=== PATIENT | male | born 1940 | race Caucasian/White ===

== ENCOUNTER → 2018-09-07 11:41 | Outpatient (CLI) | payer MEDICARE, SELFPAY ==
--- NOTE | 2018-09-07 11:53 | DI.RAD.S_ITS ---
PROCEDURE: XR ELBOW LT MIN 3V INDICATIONS: M77.11 TECHNIQUE: 3 views of the elbow were acquired. COMPARISON: None. FINDINGS: Bones: No fractures or dislocations. No suspicious bony lesions. Soft tissues: No elbow joint effusion. No suspicious soft tissue calcifications. IMPRESSION: No trauma found. Dictated by: Stephen Livingston M.D. on 09/07/2018 at 13:02 Approved by: Stephen Livingston M.D. on 09/07/2018 at 13:02
== END ==
PROVIDERS: Visit Provider Chiropractor
DX: M77.11 Lateral epicondylitis, right elbow (principal)
CPT/HCPCS: 73080

== ENCOUNTER 2018-11-29 20:23 | Observation (INO) | payer MEDICARE, SELFPAY ==
[2018-11-29] VITALS (10 sets, daily range): BP systolic 80–119; BP diastolic 52–78; PULSE 49–88; RESP 14–18; TEMP 36.9; O2SAT 97–100
[2018-11-29] MEDS: ONDANSETRON 4 MG/2 ML INJ IV (20:25)
--- NOTE | 2018-11-29 20:29 | DI.CT.S_ITS ---
PROCEDURE: CT ANGIO CHEST ABDOMEN PELVIS INDICATIONS: abdominal pain syncope hypotenstion TECHNIQUE: Precontrast 5 mm thick sections acquired from the lung apices to the iliac crests. After the administration of intravenous contrast, 2.5 mm thick sections again acquired from the lung apices to the iliac crests. Maximum intensity projection (MIP) oblique sagittal and coronal reformats were then acquired. For radiation dose reduction, the following was used: automated exposure control. COMPARISON: [facility], CR, XR CHEST 1V, 11/29/2018, 20:38. None. FINDINGS: Image quality: Excellent. AORTA: Scattered atheromatous calcifications are present within the aortic arch. No aneurysmal dilatation. The thoracic aorta is moderately tortuous. No intimal dissection. No intramural hematomas or thrombus. No thickening or periaortic fat stranding. CHEST: Lungs and pleura: No acute airspace opacities. No pleural effusions or pneumothorax. Central and peripheral airways are patent and normal in caliber. Mediastinum: Heart size is normal. No pericardial effusion. No mediastinal or hilar adenopathy by size criteria. Central pulmonary arteries are normal in size. Esophagus is normal in caliber. There is a large hiatal hernia within the left hemithorax which contains half of the debris-filled stomach. Bones and chest wall: No axillary adenopathy by size criteria. Thyroid gland is unremarkable. No suspicious bony lesions. No vertebral body compression fractures. ABDOMEN: Vasculature: Scattered atheromatous calcifications are present throughout the abdominal aorta. The SMA, ROBB, celiac axis, and renal arteries are patent. Solid organs: Liver is normal in size and enhancement. Gallbladder is unremarkable. Biliary system is non dilated. Pancreas enhances normally. Spleen is normal in size and enhancement. No adrenal nodules. Both kidneys are normal in size and enhancement, without hydronephrosis. Peritoneum and bowel: No free fluid or air. Bowel loops are normal in caliber and wall thickness. The appendix is thin walled and gas filled. Nodes and vessels: No retroperitoneal or mesenteric adenopathy by size criteria. Inferior vena cava is normal in morphology. Miscellaneous: No ventral hernias. PELVIS: Genitourinary: Bladder wall thickness is normal. Miscellaneous: No inguinal adenopathy. There is a moderate-sized fat containing left inguinal hernia.. No ventral hernias. Bones: No suspicious bony lesions. No vertebral body compression fractures. IMPRESSION: 1. No aneurysmal dilatation of the aorta, aortic dissection, or stenosis. 2. Large hiatal hernia within the left hemithorax. 3. No acute intra-abdominal findings. Normal appendix. Dictated by: Aranza Colvin M.D. on 11/29/2018 at 21:11 Approved by: Aranza Colvin M.D. on 11/29/2018 at 21:19
--- NOTE | 2018-11-29 20:30 | DI.RAD.S_ITS ---
PROCEDURE: XR CHEST 1V INDICATIONS: syncope TECHNIQUE: One view of the chest was acquired. COMPARISON: None. FINDINGS: Surgical changes and devices: None. Lungs and pleura: No pleural effusions or pneumothorax. Lungs are clear. Mediastinum: Mediastinal contours appear normal. Heart size is mildly enlarged. There is a large gas filled hiatal hernia. Bones and chest wall: No suspicious bony lesions. Overlying soft tissues appear unremarkable. IMPRESSION: Cardiomegaly and large hiatal hernia. Dictated by: Aranza Colvin M.D. on 11/29/2018 at 20:50 Approved by: Aranza Colvin M.D. on 11/29/2018 at 20:51
--- NOTE | 2018-11-29 20:31 | DI.CT.S_ITS ---
PROCEDURE: CT HEAD/BRAIN WO CON INDICATIONS: syncope TECHNIQUE: Noncontrast 4.5 mm thick angled axial sections acquired from the foramen magnum to the vertex, with coronal and sagittal reformats. For radiation dose reduction, the following was used: automated exposure control, adjustment of mA and/or kV according to patient size. COMPARISON: None. FINDINGS: Image quality: Excellent. CSF spaces: Basal cisterns are patent. No extra-axial fluid collections. The ventricles are symmetric in size and shape. Brain: No intracranial bleeds or masses. There is cerebral volume loss for age, with resultant ventricular and sulcal prominence. There are periventricular and deep white matter chronic small vessel ischemic changes. There is intracranial internal carotid artery atherosclerosis. Skull and face: Calvarium and visualized facial bones appear intact, without suspicious lesions. Sinuses: Visualized sinuses and mastoids are clear. IMPRESSION: 1. No acute intracranial findings. 2. Findings likely associated with chronic microvascular ischemic change. Dictated by: Aranza Colvin M.D. on 11/29/2018 at 21:27 Approved by: Aranza Colvin M.D. on 11/29/2018 at 21:29
[2018-11-29 20:41] LABS: Add Manual Diff / Slide Review NO; Basophils Absolute Auto 100 /uL (0-100); Basophils Percent Auto 0.8 % (0-2); Eosinophils Absolute Auto 100 /uL (0-450); Eosinophils Percent Auto 1.4 % (2-4); Hematocrit 38.8 % (41-53); Hemoglobin 13.2 g/dL (13.5-17.5); Lymphocytes Absolute Auto 2700 /uL (1100-4500); Mean Corpuscular HGB Conc 33.9 % (30-36); Mean Corpuscular Hemoglobin 31.9 PG (26-34); Monocytes Absolute Auto 600 /uL (0-900); Neutrophils Absolute Auto 3700 /uL (1500-7000); Neutrophils Percent Auto 50.8 % (50-75); Platelet Count 223 X10^3/uL (150-400); Red Blood Cell Count 4.13 X10^6/uL (4.5-5.9); Red Cell Distribution Width 13.9 % (11.6-14.8); White Blood Cell Count 7.2 X10^3/uL (4.5-11.0)
[2018-11-29 20:54] LABS: Alanine Aminotransferase 32 IU/L (21-72); Albumin 3.6 g/dL (3.5-5.0); Albumin Globulin Ratio 1.3 (1.0-2.8); Alkaline Phosphatase 35 U/L (38-126); Aspartate Aminotransferase 33 IU/L (17-59); Bilirubin Total 0.2 mg/dL (0.2-1.3); Blood Urea Nitrogen 17 mg/dL (9-20); Calcium 8.4 mg/dL (8.4-10.2); Carbon Dioxide 23 mmol/L (22-32); Chloride 105 mmol/L (98-107); Creatine Kinase 47 U/L (55-170); Estimated Glomerular Filt Rate > 60.0 mL/min (>60); Globulin 2.8 g/dL (1.7-4.1); Glucose 93 mg/dL (80-110); HEMOLYSIS < 15 (0-50); Lactate (Lactic Acid) 2.6 mmol/L (0.7-2.1); Potassium 3.4 mmol/L (3.4-5.1); Sodium 140 mmol/L (137-145); Total Protein 6.4 g/dL (6.3-8.2)
[2018-11-29 20:58] LABS: B Type Natriuretic Peptide < 100 (<100)
[2018-11-29] MEDS: SODIUM CHLORIDE 0.9% 1,000 ML 1000 ML IV (21:00)
[2018-11-29 21:07] LABS: Troponin I < 0.012 ng/mL (0.01-0.034)
[2018-11-29] MEDS: PANTOPRAZOLE 40 MG VIAL IV (21:32)
--- NOTE | 2018-11-29 22:47 | ED_ITS ---
HPI - Syncope General Chief Complaint: Syncope Stated Complaint: Syncope Time Seen by Provider: 11/29/18 20:29 Source: family and EMS History of Present Illness HPI narrative: Patient is a 78-year-old male who presents after syncopal event at the [facility]. They are celebrating his 's birthday he got up to use the restroom, when he was coming out of the restroom he fell to the ground. He does not remember falling he denies any heart palpitations or chest discomfort. His daughter found him. He was out for 1-2 minutes his. He says that he remembers feeling of severe abdominal discomfort and nausea. And passed out. His daughter found him he became more arousable. EMS found his heart rate to be in the 40s and a blood pressure with a systolic in the 50s. He was given IV fluids blood pressure has improved some all along with heart rate however patient is still quite pale and diaphoretic. Daughter states that he has passed out about 3 times over the last 8 years. The last was a year to ago and it involves severe pain in his knee. He has never had a work up for his syncope in the past. complaint: collapsed Onset (ago): minute(s) Duration of episode: 2 -: minutes(s) Description of event: incontinence Related Data Home Medications Medication Instructions Recorded Confirmed aspirin 81 mg PO DAILY 11/29/18 11/29/18 atorvastatin 80 mg PO DAILY 11/29/18 11/29/18 lisinopril 40 mg PO DAILY 11/29/18 11/29/18 Allergies Allergy/AdvReac Type Severity Reaction Status Date / Time No Known Drug Allergies Allergy Verified 11/29/18 21:13 Review of Systems Review of Systems ROS Unobtainable: All systems reviewed & are unremarkable except as noted in HPI and below Constitutional Denies chills, Denies fever(s), Denies lethargy and Denies weakness ENT Ears, Nose, Mouth, and Throat: Denies change in voice, Denies neck pain and Denies sore throat Cardiovascular Reports syncope Gastrointestinal Gastrointestinal: Reports abdominal pain and Reports nausea Genitourinary Denies hematuria, Denies flank pain, Denies urinary incontinence and Denies urinary urgency Musculoskeletal Denies neck pain Integumentary/Breasts Denies pruritus, Denies erythema, Denies rash and Denies wounds Neurologic Reports syncope and Denies weakness [facility] Medical History High cholesterol (Acute) Hypertension (Acute) Family History: Reviewed 11/30/18 by WALE Singh Social History household members: spouse, family and children Smoking Status: Never smoker Exam Initial Vital Signs Initial Vital Signs: Vital Signs Temperature 98.4 F 11/29/18 20:18 Pulse Rate 54 L 11/29/18 20:18 Respiratory Rate 18 11/29/18 20:18 Blood Pressure 80/59 L 11/29/18 20:18 Pulse Oximetry 100 11/29/18 20:18 Const General: acute distress (Pale diaphoretic) and ill appearing Nutritional Appearance: average body habitus Orientation: alert, awake and oriented x3 HENMT Head: normal to inspection and normocephalic Eyes General: appearance normal, both eyes and all related structures Neck Neck: normal visual inspection and full ROM Chest Chest: normal inspection of the chest and normal palpation of entire chest wall Resp Effort & Inspection: normal respiratory effort and able to speak in complete sentences Auscultation: clear to auscultation bilaterally, no rales, no rhonchi and no wheezes Cardio Rate: regular rate Rhythm: regular rhythm Heart Sounds: S1 normal and S2 normal GI Palpation: soft, No guarding, No pulsatile mass, No rigid and No tender Percussion: normal to percussion Auscultation: normal bowel sounds Skin General: No dry skin, pallor and cool/cold Lesions: no lesions Rashes: no rashes Neuro General: alert, awake, oriented x3 and CN's II-XI intact bilaterally Cranial Nerves: PERRL Cognition: normal cognition Speech: speech normal Motor: muscle tone normal throughout Extrem General: full ROM, no clubbing, cyanosis or edema, no pedal edema and no calf tenderness Scores NIH Stroke Scale Level of Conciousness: Alert, keenly responsive Ask month/age: Answers both questions correctly. Open/close eyes, close hand: Performs both tasks correctly Best gaze horizontal: Normal Visual dangelo: No visual loss Facial palsy: Normal symetrical movement Left arm drift: No drift for full 10 sec Right arm drift: No drift for full 10 sec Left leg drift: No drift for full 10 sec Right leg drift: No drift for full 10 sec Limb ataxia: Absent Sensory on face/arms/legs: Normal, no sensory loss Best language: No aphasia, normal Dysarthria: Normal Extinction or inattention: No abnormality Total NIH Stroke scale score: 0 Course Orders Ordered: ED Orders 11/29/18 20:29 CT angio chest abdomen pelvis Stat 11/29/18 20:30 XR chest 1V Stat B Type Natriuretic Peptide Stat Complete Blood Count AUTO DIFF Stat Comprehensive Metabolic Panel Stat Lactate (Lactic Acid) Stat Troponin & CK Cardiac Panel Stat EKG-12 Lead Stat 11/29/18 20:31 CT head/brain wo con Stat 11/29/18 22:02 EKG-12 Lead Stat 11/30/18 00:42 Lactate 4HR (Lactic Acid Rflx) Stat 11/30/18 02:33 Education, smoking cessation ONGOING 11/30/18 02:35 Urinalysis and Microscopic Stat 11/30/18 06:00 Basic Metabolic Panel Routine Magnesium Routine Acetaminophen (Tylenol) 650 mg PO Q6HR PRN PRN Reason: As Needed for Fever/Mild Pain Aspirin (Aspirin Chew) 81 mg PO DAILY [facility] Atorvastatin Calcium (Lipitor) 80 mg PO DAILY [facility] Heparin Sodium (Porcine) (Heparin) 5,000 unit SUBCUT BID [facility] Sodium Chloride (Normal Saline 0.9%) 1,000 mls @ 80 mls/hr IV CONT REHAN Last Admin: 11/30/18 02:53 Dose: 80 mls/hr Ondansetron HCl (Zofran) 4 mg IV Q8HR PRN PRN Reason: Nausea And Vomiting Discontinued Medications Sodium Chloride (Normal Saline 0.9%) 1,000 mls @ 1,000 mls/hr IV BOLUS ONE Stop: 11/29/18 21:28 Last Infusion: 11/29/18 23:28 Dose: 1,000 mls/hr Admin: 11/29/18 21:00 Dose: 1,000 mls/hr Ondansetron HCl (Zofran) 4 mg IV NOW ONE Stop: 11/29/18 20:26 Last Admin: 11/29/18 20:25 Dose: 4 mg Pantoprazole Sodium (Protonix) 40 mg IV NOW ONE Stop: 11/29/18 21:22 Last Admin: 11/29/18 21:32 Dose: 40 mg Vital Signs - 8 hr 11/29/18 20:18 11/29/18 20:25 11/29/18 20:30 Temperature 98.4 F Pulse Rate 54 L 54 L 58 L Pulse Rate [Orthostatic Lying] Pulse Rate [Orthostatic Sitting] Pulse Rate [Orthostatic Standing] Respiratory Rate 18 18 18 Blood Pressure 80/59 L Blood Pressure [Orthostatic Lying] Blood Pressure [Orthostatic Sitting] Blood Pressure [Orthostatic Standing] Blood Pressure [Right Arm] 89/59 L 93/60 Pulse Oximetry 100 100 100 11/29/18 20:35 11/29/18 20:40 11/29/18 20:55 Temperature Pulse Rate 61 52 L 49 L Pulse Rate [Orthostatic Lying] Pulse Rate [Orthostatic Sitting] Pulse Rate [Orthostatic Standing] Respiratory Rate 18 18 18 Blood Pressure Blood Pressure [Orthostatic Lying] Blood Pressure [Orthostatic Sitting] Blood Pressure [Orthostatic Standing] Blood Pressure [Right Arm] 96/61 92/52 L 93/62 Pulse Oximetry 11/29/18 21:00 11/29/18 21:25 11/29/18 22:30 Temperature Pulse Rate 63 63 85 Pulse Rate [Orthostatic Lying] Pulse Rate [Orthostatic Sitting] Pulse Rate [Orthostatic Standing] Respiratory Rate 18 14 18 Blood Pressure Blood Pressure [Orthostatic Lying] Blood Pressure [Orthostatic Sitting] Blood Pressure [Orthostatic Standing] Blood Pressure [Right Arm] 112/78 102/62 110/71 Pulse Oximetry 100 97 98 11/29/18 23:05 11/30/18 00:05 11/30/18 02:32 Temperature 97.9 F Pulse Rate 88 93 H Pulse Rate [Orthostatic Lying] Pulse Rate [Orthostatic Sitting] Pulse Rate [Orthostatic Standing] Respiratory Rate 14 16 Blood Pressure 120/74 Blood Pressure [Orthostatic Lying] Blood Pressure [Orthostatic Sitting] Blood Pressure [Orthostatic Standing] Blood Pressure [Right Arm] 119/77 Pulse Oximetry 98 97 11/30/18 03:08 11/30/18 03:45 Temperature 98.2 F Pulse Rate 97 H Pulse Rate [Orthostatic Lying] 104 H Pulse Rate [Orthostatic Sitting] 103 H Pulse Rate [Orthostatic Standing] 110 H Respiratory Rate 16 Blood Pressure 115/72 Blood Pressure [Orthostatic Lying] 132/88 Blood Pressure [Orthostatic Sitting] 141/76 H Blood Pressure [Orthostatic Standing] 153/94 H Blood Pressure [Right Arm] Pulse Oximetry 94 MDM - Syncope Lab Data Attestation: I reviewed the patient's lab results. Result diagrams: 11/29/18 20:30 11/29/18 20:30 Lab Results 11/29/18 11/29/18 11/29/18 Range/Units 20:30 20:30 20:30 WBC 7.2 (4.5-11.0) X10^3/uL RBC 4.13 L (4.5-5.9) X10^6/uL Hgb 13.2 L (13.5-17.5) g/dL Hct 38.8 L (41-53) % MCV 94.0 (80-100) fL MCH 31.9 (26-34) PG MCHC 33.9 (30-36) % RDW 13.9 (11.6-14.8) % Plt Count 223 (150-400) X10^3/uL Neut % (Auto) 50.8 (50-75) % Lymph % (Auto) 38.0 (25-40) % Prentiss % (Auto) 9.0 (3-14) % Eos % (Auto) 1.4 L (2-4) % Baso % (Auto) 0.8 (0-2) % Neut # (Auto) 3700 (8103-7132) /uL Lymph # (Auto) 2700 (2132-7674) /uL Prentiss # (Auto) 600 (0-900) /uL Eos # (Auto) 100 (0-450) /uL Baso # (Auto) 100 (0-100) /uL Sodium (137-145) mmol/L Potassium (3.4-5.1) mmol/L Chloride (98-107) mmol/L Carbon Dioxide (22-32) mmol/L BUN (9-20) mg/dL Creatinine (0.66-1.25) mg/dL Estimated GFR (>60) mL/min BUN/Creatinine Ratio (6-22) Glucose (80-110) mg/dL Lactate 2.6 H (0.7-2.1) mmol/L Calcium (8.4-10.2) mg/dL Total Bilirubin (0.2-1.3) mg/dL AST (17-59) IU/L ALT (21-72) IU/L Alkaline Phosphatase (38-126) U/L Total Creatine Kinase (55-170) U/L CK-MB (CK-2) CK-MB (CK-2) Rel Index Troponin I (0.01-0.034) ng/mL B-Natriuretic Peptide < 100 (<100) Total Protein (6.3-8.2) g/dL Albumin (3.5-5.0) g/dL Globulin (1.7-4.1) g/dL Albumin/Globulin Ratio (1.0-2.8) Urine Color Urine Appearance Urine pH (4.5-8.0) Ur Specific [place] (1.000-1.035) Urine Protein (Negative) Urine Glucose (UA) (Negative) g/dL Urine Ketones (NEGATIVE) Urine Occult Blood (Negative) Urine Nitrate (Negative) Urine Bilirubin (NEGATIVE) Urine Urobilinogen (0.2) E.U./dL Ur Leukocyte Esterase (NEGATIVE) Urine RBC (0-5/HPF) Urine WBC (0-5/HPF) Ur Squamous Epith Cells Urine Bacteria (None) Ur Culture Indicated? 11/29/18 11/30/18 11/30/18 Range/Units 20:30 00:42 02:35 WBC (4.5-11.0) X10^3/uL RBC (4.5-5.9) X10^6/uL Hgb (13.5-17.5) g/dL Hct (41-53) % MCV (80-100) fL MCH (26-34) PG MCHC (30-36) % RDW (11.6-14.8) % Plt Count (150-400) X10^3/uL Neut % (Auto) (50-75) % Lymph % (Auto) (25-40) % Prentiss % (Auto) (3-14) % Eos % (Auto) (2-4) % Baso % (Auto) (0-2) % Neut # (Auto) (4094-3866) /uL Lymph # (Auto) (3758-1938) /uL Prentiss # (Auto) (0-900) /uL Eos # (Auto) (0-450) /uL Baso # (Auto) (0-100) /uL Sodium 140 (137-145) mmol/L Potassium 3.4 (3.4-5.1) mmol/L Chloride 105 (98-107) mmol/L Carbon Dioxide 23 (22-32) mmol/L BUN 17 (9-20) mg/dL Creatinine 1.00 (0.66-1.25) mg/dL Estimated GFR > 60.0 (>60) mL/min BUN/Creatinine Ratio 17.0 (6-22) Glucose 93 (80-110) mg/dL Lactate 1.2 (0.7-2.1) mmol/L Calcium 8.4 (8.4-10.2) mg/dL Total Bilirubin 0.2 (0.2-1.3) mg/dL AST 33 (17-59) IU/L ALT 32 (21-72) IU/L Alkaline Phosphatase 35 L (38-126) U/L Total Creatine Kinase 47 L (55-170) U/L CK-MB (CK-2) TNP CK-MB (CK-2) Rel Index TNP Troponin I < 0.012 (0.01-0.034) ng/mL B-Natriuretic Peptide (<100) Total Protein 6.4 (6.3-8.2) g/dL Albumin 3.6 (3.5-5.0) g/dL Globulin 2.8 (1.7-4.1) g/dL Albumin/Globulin Ratio 1.3 (1.0-2.8) Urine Color Yellow Urine Appearance Clear Urine pH 5.0 (4.5-8.0) Ur Specific [place] <=1.005 (1.000-1.035) Urine Protein Negative (Negative) Urine Glucose (UA) Negative (Negative) g/dL Urine Ketones Negative (NEGATIVE) Urine Occult Blood Negative (Negative) Urine Nitrate Negative (Negative) Urine Bilirubin Negative (NEGATIVE) Urine Urobilinogen 0.2 (0.2) E.U./dL Ur Leukocyte Esterase Negative (NEGATIVE) Urine RBC None seen (0-5/HPF) Urine WBC None seen (0-5/HPF) Ur Squamous Epith Cells 0-1 /hpf Urine Bacteria None seen (None) Ur Culture Indicated? Cult not indicated Point of Care Testing Glucose POC 115 Imaging Data Chest x-ray: Radiologist's impression: PROCEDURE: XR CHEST 1V INDICATIONS: syncope TECHNIQUE: One view of the chest was acquired. COMPARISON: None. FINDINGS: Surgical changes and devices: None. Lungs and pleura: No pleural effusions or pneumothorax. Lungs are clear. Mediastinum: Mediastinal contours appear normal. Heart size is mildly enlarged. There is a large gas filled hiatal hernia. Bones and chest wall: No suspicious bony lesions. Overlying soft tissues appear unremarkable. IMPRESSION: Cardiomegaly and large hiatal hernia. Dictated by: Aranza Colvin M.D. on 11/29/2018 at 20:50 CT scan - head: Radiologist's impression: PROCEDURE: CT HEAD/BRAIN WO CON INDICATIONS: syncope TECHNIQUE: Noncontrast 4.5 mm thick angled axial sections acquired from the foramen magnum to the vertex, with coronal and sagittal reformats. For radiation dose reduction, the following was used: automated exposure control, adjustment of mA and/or kV according to patient size. COMPARISON: None. FINDINGS: Image quality: Excellent. CSF spaces: Basal cisterns are patent. No extra-axial fluid collections. The ventricles are symmetric in size and shape. Brain: No intracranial bleeds or masses. There is cerebral volume loss for age , with resultant ventricular and sulcal prominence. There are periventricular and deep white matter chronic small vessel ischemic changes. There is intracranial internal carotid artery atherosclerosis. Skull and face: Calvarium and visualized facial bones appear intact, without suspicious lesions. Sinuses: Visualized sinuses and mastoids are clear. IMPRESSION: 1. No acute intracranial findings. 2. Findings likely associated with chronic microvascular ischemic change. Dictated by: Aranza Colvin M.D. on 11/29/2018 at 21:27 CT Angio chest/ab/plevis: Radiologist's impression: PROCEDURE: CT ANGIO CHEST ABDOMEN PELVIS INDICATIONS: abdominal pain syncope hypotenstion TECHNIQUE: Precontrast 5 mm thick sections acquired from the lung apices to the iliac crests. After the administration of intravenous contrast, 2.5 mm thick sections again acquired from the lung apices to the iliac crests. Maximum intensity projection (MIP) oblique sagittal and coronal reformats were then acquired. For radiation dose reduction, the following was used: automated exposure control. COMPARISON: [facility], CR, XR CHEST 1V, 11/29/2018, 20:38. None. FINDINGS: Image quality: Excellent. AORTA: Scattered atheromatous calcifications are present within the aortic arch. No aneurysmal dilatation. The thoracic aorta is moderately tortuous. No intimal dissection. No intramural hematomas or thrombus. No thickening or periaortic fat stranding. CHEST: Lungs and pleura: No acute airspace opacities. No pleural effusions or pneumothorax. Central and peripheral airways are patent and normal in caliber. Mediastinum: Heart size is normal. No pericardial effusion. No mediastinal or hilar adenopathy by size criteria. Central pulmonary arteries are normal in size. Esophagus is normal in caliber. There is a large hiatal hernia within the left hemithorax which contains half of the debris-filled stomach. Bones and chest wall: No axillary adenopathy by size criteria. Thyroid gland is unremarkable. No suspicious bony lesions. No vertebral body compression fractures. ABDOMEN: Vasculature: Scattered atheromatous calcifications are present throughout the abdominal aorta. The SMA, ROBB, celiac axis, and renal arteries are patent. Solid organs: Liver is normal in size and enhancement. Gallbladder is unremarkable. Biliary system is non dilated. Pancreas enhances normally. Spleen is normal in size and enhancement. No adrenal nodules. Both kidneys are normal in size and enhancement, without hydronephrosis. Peritoneum and bowel: No free fluid or air. Bowel loops are normal in caliber and wall thickness. The appendix is thin walled and gas filled. Nodes and vessels: No retroperitoneal or mesenteric adenopathy by size criteria. Inferior vena cava is normal in morphology. Miscellaneous: No ventral hernias. PELVIS: Genitourinary: Bladder wall thickness is normal. Miscellaneous: No inguinal adenopathy. There is a moderate-sized fat containing left inguinal hernia.. No ventral hernias. Bones: No suspicious bony lesions. No vertebral body compression fractures. IMPRESSION: 1. No aneurysmal dilatation of the aorta, aortic dissection, or stenosis. 2. Large hiatal hernia within the left hemithorax. 3. No acute intra-abdominal findings. Normal appendix. Dictated by: Aranza Colvin M.D. on 11/29/2018 at 21:11 ECG Data Attestation: I personally reviewed and interpreted this ECG as follows: Prior ECG tracings: not available for review Interpretation: EKG 1.: Irregular PVC noted rate 59 2 beats have discernible P- waves all other beat do not. No AV block appreciated PVCs noted EKG 2. Rate 68 no P was regular no ST changes EKG 3.: Normal sinus rhythm rate [address] changes MDM Narrative Medical decision making narrative: Patient has syncopal episode with abdominal pain. CT angio did rule out any aneurysm. I do believe the syncopal episode has to do from a cardiac arrhythmia. At this time I do not appreciate any 2nd or third-degree AV block or requirement for pacemaker. His rhythm has returned to a normal sinus rhythm. His blood pressure has improved with the IV fluids. He has not established with a primary care provider in area. This time admit for observation on cardiac monitoring. Discharge Plan Departure Patient Disposition: Admitted as Observation Clinical Impression: Syncope, Atrial fibrillation Discharge Date/Time: 11/30/18 00:11 Interventions: ED Discharge Assessment Last Done: 11/30/18 00:11 Admit Date/Time: 11/30/18 00:32 Admit Provider: Crissy Bautista
[2018-11-30] VITALS (10 sets, daily range): BP systolic 110–153; BP diastolic 67–94; PULSE 55–110; RESP 16–55; TEMP 36.5–36.8; O2SAT 94–99; BMI 29.5
[2018-11-30 00:35] LABS: Reflexed Lactate in 2 Hours Y
[2018-11-30 00:58] LABS: Lactate 2HR (Lactic Acid Rflx) 1.2 mmol/L (0.7-2.1)
--- NOTE | 2018-11-30 01:22 | PC.NURSE ---
Pt. admitted to room 223, oriented to his room, showed how to use his call light, TV & bed controls. Encouraged to call staff for assistance, if he needed to get up OOB to the BR. Ambulated to the BR without any assistance, denies any dizziness, ADAMS, CP & other discomfort. Will cont. POC & monitor.
--- NOTE | 2018-11-30 01:42 | PM.HP.1 ---
History of Present Illness Chief complaint: Syncope Narrative: The patient is a 78-year-old male who presented to the ED on 11/29/2018 at approximately 2018 after experiencing a syncopal events. Prior to the event, earlier in the night, patient was in his usual state of health, he just finished eating a meal (sandwich, salad, beer). He went to use the restroom, which involved a voiding episode. He did not try to strain or have bowel movement. Upon leaving the restroom patient experienced sudden onset of nausea and diaphoresis. Patient sat down to rest. Shortly after he was found by his family and noted to be ashen in appearance, slightly diaphoretic, and to exhibit shallow breathing. His eyes were closed. He was noted to exhibit clenched fists and generalized body stiffness. His mouth was agape. Family notes patient to be unresponsive and comment that there was difficulty finding a pulse. No muscle twitching was noted. No loss of bowel or bladder control. Patient was lowered to a supine position and turned to a side. Patient remained in the aforementioned state for 2-3 minutes. Thereafter, regain consciousness. At that time patient was observed to experience profuse diaphoresis. Post event family notes patient to be lethargic and patient himself notes to be tired; however, this resolved upon presentation to the ED. He appear to have regained function and strength in his upper and lower extremities almost immediately. In field, immediately post the event, SBP 50 mmHg, HR 40s, and BG 120 (per triage note). At that time patient received a 300 cc NS bolus. On presentation to the ED? T 98.4, BP 80/59, HR 54, RR 18, SpO2 100%. GCS 15. AOx3. Initial EKG revealed AFIB (v-rate 59). PMH significant for HTN, hyperlipidemia, and hiatal hernia. No prior history of heart disease, [place], TIA is, stroke, thrombosis, or seizures. Patient's home medication regimen consists of ASA 81 mg QD, atorvastatin 80 mg QD, and lisinopril 20 mg QD. He reports lack of adherence with aspirin therapy. However, he does take atorvastatin and lisinopril routinely. Patient's prescribed lisinopril doses 40 mg PO daily. He has been taking 20 mg PO daily for number of years with reported average BP of 125/75 at home. He has been on a reduced dose for years; however, did not communicate this to his PCP. Denies use of any other medications or recent change in medication doses. Drinks occasionally, no current or prior history of heavy alcohol use. No known family history of sudden cardiac or seizures. Recently experiencing stressors related to move from [place] to the local area. ED Work-Up WBC 7.2, RBC 4.13, HGB 13.2, PLT 223 NA 140, K 3.4, CO 105, CA 8.4, Alb 3.6, CO2 23, GLU 93... kidney and liver function WNL... Lactate 2.6... Trop < 0.012, CK 47, BNP < 100 UA unremarkable for infection or active sediment EKG #1, 11/29/18, 2022: AFIB w/ slow ventricular response (v-rate 59). QTc 453 EKG #2, 11/29/18, 2113: Supraventricular rhythm, non-specific T-wave abn. (v-rate 68). QTc 458 EKG #3, 11/29/182209: SR w/ 1AVB, non-specific ST/T wave abnormalities. (v-rate 85). QTc 450. Chest XR: Cardiomegaly and large hiatal hernia. CTA Chest / Abdomen / Pelvis: No aneurysmal dilatation of the aorta, aortic dissection, or stenosis. Large hiatal hernia w/in the left hemithorax. No acute intra-abdominal findings. Head CT: No acute intracranial findings. Intracranial internal carotid artery atherosclerosis. Chronic microvascular ischemic changes present. PMH: HTN, HLD, hiatal hernia, vertigo PSH: Hernia repair, knee replacement FHx: Mother (D), brain aneurysm. Father (D), no known health history. No siblings. SHx: , lives w/ . Functionally independent. Golfs. Works out by walking 3/4 mile 3-4 times per week. Prior h/o smoking, 15 total years (1/2 ppd), quit 40 yrs ago. Drinks on occasion. No prior or current history of recreational drug use. Patient History Medical History High cholesterol (Acute) Hypertension (Acute) Family & Social History Family History: Reviewed 11/30/18 by WALE Singh Social History: household members Spouse,family,children Prior Living Arrangements House Safety & Behavioral: Feels Safe in Current Yes Environment Been Physically Hurt or No Threatened By a Person Suicidal Ideation Description None Suicide Plan Description No Plan Tobacco & Substance use: Smoking Status Former smoker, 15 total years, 1/2 ppd, quit 40 yrs ago alcohol intake frequency 0-2 drinks per day Substance Use Type Does not use Meds Home Medications Medication Instructions Recorded Confirmed Type aspirin 81 mg PO DAILY 11/29/18 11/29/18 History atorvastatin 80 mg PO DAILY 11/29/18 11/29/18 History lisinopril 40 mg PO DAILY 11/29/18 11/29/18 History Allergies Allergy/AdvReac Type Severity Reaction Status Date / Time No Known Drug Allergies Allergy Verified 11/29/18 21:13 Review of Systems Review of Systems All systems reviewed & are unremarkable except as noted in HPI and below Exam Vital Signs (past 8 hours): - 11/29/18 20:18 11/29/18 20:25 11/29/18 20:30 Temperature 98.4 F Pulse Rate 54 L 54 L 58 L Respiratory Rate 18 18 18 Blood Pressure 80/59 L Blood Pressure [Right Arm] 89/59 L 93/60 Pulse Oximetry 100 100 100 11/29/18 20:35 11/29/18 20:40 11/29/18 20:55 Temperature Pulse Rate 61 52 L 49 L Respiratory Rate 18 18 18 Blood Pressure Blood Pressure [Right Arm] 96/61 92/52 L 93/62 Pulse Oximetry 11/29/18 21:00 11/29/18 21:25 11/29/18 22:30 Temperature Pulse Rate 63 63 85 Respiratory Rate 18 14 18 Blood Pressure Blood Pressure [Right Arm] 112/78 102/62 110/71 Pulse Oximetry 100 97 98 11/29/18 23:05 Temperature Pulse Rate 88 Respiratory Rate 14 Blood Pressure Blood Pressure [Right Arm] 119/77 Pulse Oximetry Oxygen Delivery Method Room Air Narrative Exam Narrative: Constitutional: NAD Neurologic: AOx3, no focal neurological deficits, NIHSS 0 Head: NC, AT Eyes: PERRL, EOMI, no scleral icterus Ears: external ears normal, no otorrhea Nose: external nose normal, no rhinorrhea or epistaxis Throat: dry MM, oropharynx w/o exudate Neck: no masses, lymphadenopathy, or JVD Chest / Respiratory: equal chest rise, unlabored respiratory effort, no tachypnea, no dyspnea Heart / CV: S1S2, no murmur Abdomen / GI: round, NT, ND, + BS, no organomegaly : no suprapubic tenderness, no CVA Peripheral / Vascular: warm to touch, DP and PT pulses palpable, no edema Musc: full ROM of upper and lower extremities, adequate muscle tone and bulk Skin: no ecchymosis or suspicious lesions / ulcers Objective Labs Result Diagrams: 11/29/18 20:30 11/29/18 20:30 Labs: Laboratory Results - last 24 hr 11/29/18 11/29/18 11/29/18 20:30 20:30 20:30 WBC 7.2 RBC 4.13 L Hgb 13.2 L Hct 38.8 L MCV 94.0 MCH 31.9 MCHC 33.9 RDW 13.9 Plt Count 223 Neut % (Auto) 50.8 Lymph % (Auto) 38.0 [place] % (Auto) 9.0 Eos % (Auto) 1.4 L Baso % (Auto) 0.8 Neut # (Auto) 3700 Lymph # (Auto) 2700 [place] # (Auto) 600 Eos # (Auto) 100 Baso # (Auto) 100 Sodium Potassium Chloride Carbon Dioxide BUN Creatinine Estimated GFR BUN/Creatinine Ratio Glucose Lactate 2.6 H Calcium Total Bilirubin AST ALT Alkaline Phosphatase Total Creatine Kinase CK-MB (CK-2) CK-MB (CK-2) Rel Index Troponin I B-Natriuretic Peptide < 100 Total Protein Albumin Globulin Albumin/Globulin Ratio 11/29/18 11/30/18 20:30 00:42 WBC RBC Hgb Hct MCV MCH MCHC RDW Plt Count Neut % (Auto) Lymph % (Auto) [place] % (Auto) Eos % (Auto) Baso % (Auto) Neut # (Auto) Lymph # (Auto) [place] # (Auto) Eos # (Auto) Baso # (Auto) Sodium 140 Potassium 3.4 Chloride 105 Carbon Dioxide 23 BUN 17 Creatinine 1.00 Estimated GFR > 60.0 BUN/Creatinine Ratio 17.0 Glucose 93 Lactate 1.2 Calcium 8.4 Total Bilirubin 0.2 AST 33 ALT 32 Alkaline Phosphatase 35 L Total Creatine Kinase 47 L CK-MB (CK-2) TNP CK-MB (CK-2) Rel Index TNP Troponin I < 0.012 B-Natriuretic Peptide Total Protein 6.4 Albumin 3.6 Globulin 2.8 Albumin/Globulin Ratio 1.3 Assessment & Plan Plan: Assessment/Plan Narrative: Syncope neurally mediated VS cardiac (cardiac arrhythmia) VS in the setting of a large hiatal hernia (2/2 left atrial compression due to sudden enlargement of stomach (event was post-prandial)) - Telemetry monitoring - Orthostatic BPs QShift and VS + SpO2 Q4H - IVF 80 ml /hr - Trend lactate until resolved - Echo in am - Consider GI referal or surgery consult to evaluate the severity of hiatal hernia - Patient will need to f/u outpatient for cardiology - BMP, Mg in am - VTE prophylaxis Paroxysmal atrial fibriation New onset vs in the setting of hiatal hernia [id number] Score 3 (age >/ 75 and h/o HTN). A score of 3 indicates a moderate-high risk for cardioembolic events. - Tele monitoring, currently in SR - Despite [id number] Score of 3, will hold off on NOACs as this patient requires further work-up and sub-specialty evaluation - Continue ASA and statin Hiatal Hernia Potentially large enough to cause obstructed flow from the left atrium to the left ventricle decreasing cardiac output. This potentially may be problematic for the patient and would require surgery. - outpatient GI / General surgery evaluation recommended Essential HTN Presented Hypotensive. BP trending upward. - Trend BP - Hold lisinopril, evaluate BP in am and need to restart [employer] SAL[employer] anti-hypertensive Elevated lactate, resolved 2/2 syncopal / acute hypoxic event, received 1L IVF in ED, now resolved 2.6 --> 1.2 Code status discussed with patient. Wishes to be a full code. Reports having an advance / health directive. DPOA is and daughter. Home medications reviewed and reconciled. Quality VTE Deep Vein Thrombosis/Pulmonary Embolism Present on Admission: No
[2018-11-30 02:46] LABS: Bacteria Urine None Seen; RBC Urine None Seen (0-5/HPF); WBC Urine None Seen (0-5/HPF)
[2018-11-30 02:49] LABS: Appearance Urine UA CLEAR; Bilirubin Urine UA NEGATIVE (NEGATIVE); Color Urine UA YELLOW; Glucose Urine UA NEGATIVE (Negative); Ketones Urine UA NEGATIVE (NEGATIVE); Leukocyte Esterase Urine UA NEGATIVE (NEGATIVE); Nitrite Urine UA NEGATIVE (Negative); Occult Blood Urine UA NEGATIVE (Negative); Protein Urine UA NEGATIVE (Negative); Specific Gravity Urine UA <=1.005 (1.000-1.035); Urobilinogen Urine UA 0.2 E.U./dL (0.2)
[2018-11-30] MEDS: SODIUM CHLORIDE 0.9% 1,000 ML 80 ML IV ×2 (02:53→14:43)
--- NOTE | 2018-11-30 03:09 | P.HP_ITS ---
History of Present Illness Chief complaint: Syncope Narrative: The patient is a 78-year-old male who presented to the ED on 11/29/2018 at approximately 2018 after experiencing a syncopal events. Prior to the event, earlier in the night, patient was in his usual state of health, he just finished eating a meal (sandwich, salad, beer). He went to use the restroom, which involved a voiding episode. He did not try to strain or have bowel movement. Upon leaving the restroom patient experienced sudden onset of nausea and diaphoresis. Patient sat down to rest. Shortly after he was found by his family and noted to be ashen in appearance, slightly diaphoretic, and to exhibit shallow breathing. His eyes were closed. He was noted to exhibit clenched fists and generalized body stiffness. His mouth was agape. Family notes patient to be unresponsive and comment that there was difficulty finding a pulse. No muscle twitching was noted. No loss of bowel or bladder control. Patient was lowered to a supine position and turned to a side. Patient remained in the aforementioned state for 2-3 minutes. Thereafter , regain consciousness. At that time patient was observed to experience profuse diaphoresis. Post event family notes patient to be lethargic and patient himself notes to be tired; however, this resolved upon presentation to the ED. He appear to have regained function and strength in his upper and lower extremities almost immediately. In field, immediately post the event, SBP 50 mmHg, HR 40s, and BG 120 (per triage note). At that time patient received a 300 cc NS bolus. On presentation to the ED? T 98.4, BP 80/59, HR 54, RR 18, SpO2 100%. GCS 15. AOx3. Initial EKG revealed AFIB (v-rate 59). PMH significant for HTN, hyperlipidemia, and hiatal hernia. No prior history of heart disease, [place], TIA is, stroke, thrombosis, or seizures. Patient's home medication regimen consists of ASA 81 mg QD, atorvastatin 80 mg QD, and lisinopril 20 mg QD. He reports lack of adherence with aspirin therapy. However, he does take atorvastatin and lisinopril routinely. Patient's prescribed lisinopril doses 40 mg PO daily. He has been taking 20 mg PO daily for number of years with reported average BP of 125/75 at home. He has been on a reduced dose for years; however, did not communicate this to his PCP. Denies use of any other medications or recent change in medication doses. Drinks occasionally, no current or prior history of heavy alcohol use. No known family history of sudden cardiac or seizures. Recently experiencing stressors related to move from [place] to the local area. ED Work-Up WBC 7.2, RBC 4.13, HGB 13.2, PLT 223 NA 140, K 3.4, CO 105, CA 8.4, Alb 3.6, CO2 23, GLU 93... kidney and liver function WNL... Lactate 2.6... Trop < 0.012, CK 47, BNP < 100 UA unremarkable for infection or active sediment EKG #1, 11/29/18, 2022: AFIB w/ slow ventricular response (v-rate 59). QTc 453 EKG #2, 11/29/18, 2113: Supraventricular rhythm, non-specific T-wave abn. (v- rate 68). QTc 458 EKG #3, 11/29/182209: SR w/ 1AVB, non-specific ST/T wave abnormalities. (v- rate 85). QTc 450. Chest XR: Cardiomegaly and large hiatal hernia. CTA Chest / Abdomen / Pelvis: No aneurysmal dilatation of the aorta, aortic dissection, or stenosis. Large hiatal hernia w/in the left hemithorax. No acute intra-abdominal findings. Head CT: No acute intracranial findings. Intracranial internal carotid artery atherosclerosis. Chronic microvascular ischemic changes present. PMH: HTN, HLD, hiatal hernia, vertigo PSH: Hernia repair, knee replacement FHx: Mother (D), brain aneurysm. Father (D), no known health history. No siblings. SHx: , lives w/ . Functionally independent. Golfs. Works out by walking 3/4 mile 3-4 times per week. Prior h/o smoking, 15 total years (1/2 ppd), quit 40 yrs ago. Drinks on occasion. No prior or current history of recreational drug use. Patient History Medical History High cholesterol (Acute) Hypertension (Acute) Family & Social History Family History: Reviewed 11/30/18 by WALE Singh Social History: household members Spouse,family,children Prior Living Arrangements House Safety & Behavioral: Feels Safe in Current Yes Environment Been Physically Hurt or No Threatened By a Person Suicidal Ideation Description None Suicide Plan Description No Plan Tobacco & Substance use: Smoking Status Former smoker, 15 total years, 1/2 ppd, quit 40 yrs ago alcohol intake frequency 0-2 drinks per day Substance Use Type Does not use Meds Home Medications Medication Instructions Recorded Confirmed Type aspirin 81 mg PO DAILY 11/29/18 11/29/18 History atorvastatin 80 mg PO DAILY 11/29/18 11/29/18 History lisinopril 40 mg PO DAILY 11/29/18 11/29/18 History Allergies Allergy/AdvReac Type Severity Reaction Status Date / Time No Known Drug Allergies Allergy Verified 11/29/18 21:13 Review of Systems Review of Systems All systems reviewed & are unremarkable except as noted in HPI and below Exam Vital Signs (past 8 hours): - 11/29/18 20:18 11/29/18 20:25 11/29/18 20:30 Temperature 98.4 F Pulse Rate 54 L 54 L 58 L Respiratory Rate 18 18 18 Blood Pressure 80/59 L Blood Pressure [Right Arm] 89/59 L 93/60 Pulse Oximetry 100 100 100 11/29/18 20:35 11/29/18 20:40 11/29/18 20:55 Temperature Pulse Rate 61 52 L 49 L Respiratory Rate 18 18 18 Blood Pressure Blood Pressure [Right Arm] 96/61 92/52 L 93/62 Pulse Oximetry 11/29/18 21:00 11/29/18 21:25 11/29/18 22:30 Temperature Pulse Rate 63 63 85 Respiratory Rate 18 14 18 Blood Pressure Blood Pressure [Right Arm] 112/78 102/62 110/71 Pulse Oximetry 100 97 98 11/29/18 23:05 Temperature Pulse Rate 88 Respiratory Rate 14 Blood Pressure Blood Pressure [Right Arm] 119/77 Pulse Oximetry Oxygen Delivery Method Room Air Narrative Exam Narrative: Constitutional: NAD Neurologic: AOx3, no focal neurological deficits, NIHSS 0 Head: NC, AT Eyes: PERRL, EOMI, no scleral icterus Ears: external ears normal, no otorrhea Nose: external nose normal, no rhinorrhea or epistaxis Throat: dry MM, oropharynx w/o exudate Neck: no masses, lymphadenopathy, or JVD Chest / Respiratory: equal chest rise, unlabored respiratory effort, no tachypnea, no dyspnea Heart / CV: S1S2, no murmur Abdomen / GI: round, NT, ND, + BS, no organomegaly : no suprapubic tenderness, no CVA Peripheral / Vascular: warm to touch, DP and PT pulses palpable, no edema Musc: full ROM of upper and lower extremities, adequate muscle tone and bulk Skin: no ecchymosis or suspicious lesions / ulcers Objective Labs Result Diagrams: 11/29/18 20:30 11/29/18 20:30 Labs: Laboratory Results - last 24 hr 11/29/18 11/29/18 11/29/18 20:30 20:30 20:30 WBC 7.2 RBC 4.13 L Hgb 13.2 L Hct 38.8 L MCV 94.0 MCH 31.9 MCHC 33.9 RDW 13.9 Plt Count 223 Neut % (Auto) 50.8 Lymph % (Auto) 38.0 [place] % (Auto) 9.0 Eos % (Auto) 1.4 L Baso % (Auto) 0.8 Neut # (Auto) 3700 Lymph # (Auto) 2700 [place] # (Auto) 600 Eos # (Auto) 100 Baso # (Auto) 100 Sodium Potassium Chloride Carbon Dioxide BUN Creatinine Estimated GFR BUN/Creatinine Ratio Glucose Lactate 2.6 H Calcium Total Bilirubin AST ALT Alkaline Phosphatase Total Creatine Kinase CK-MB (CK-2) CK-MB (CK-2) Rel Index Troponin I B-Natriuretic Peptide < 100 Total Protein Albumin Globulin Albumin/Globulin Ratio 11/29/18 11/30/18 20:30 00:42 WBC RBC Hgb Hct MCV MCH MCHC RDW Plt Count Neut % (Auto) Lymph % (Auto) [place] % (Auto) Eos % (Auto) Baso % (Auto) Neut # (Auto) Lymph # (Auto) [place] # (Auto) Eos # (Auto) Baso # (Auto) Sodium 140 Potassium 3.4 Chloride 105 Carbon Dioxide 23 BUN 17 Creatinine 1.00 Estimated GFR > 60.0 BUN/Creatinine Ratio 17.0 Glucose 93 Lactate 1.2 Calcium 8.4 Total Bilirubin 0.2 AST 33 ALT 32 Alkaline Phosphatase 35 L Total Creatine Kinase 47 L CK-MB (CK-2) TNP CK-MB (CK-2) Rel Index TNP Troponin I < 0.012 B-Natriuretic Peptide Total Protein 6.4 Albumin 3.6 Globulin 2.8 Albumin/Globulin Ratio 1.3 Assessment & Plan Plan: Assessment/Plan Narrative: Syncope neurally mediated VS cardiac (cardiac arrhythmia) VS in the setting of a large hiatal hernia (2/2 left atrial compression due to sudden enlargement of stomach (event was post-prandial)) - Telemetry monitoring - Orthostatic BPs QShift and VS + SpO2 Q4H - IVF 80 ml /hr - Trend lactate until resolved - Echo in am - Consider GI referal or surgery consult to evaluate the severity of hiatal hernia - Patient will need to f/u outpatient for cardiology - BMP, Mg in am - VTE prophylaxis Paroxysmal atrial fibriation New onset vs in the setting of hiatal hernia [id number] Score 3 (age >/ 75 and h/o HTN). A score of 3 indicates a moderate- high risk for cardioembolic events. - Tele monitoring, currently in SR - Despite [id number] Score of 3, will hold off on NOACs as this patient requires further work-up and sub-specialty evaluation - Continue ASA and statin Hiatal Hernia Potentially large enough to cause obstructed flow from the left atrium to the left ventricle decreasing cardiac output. This potentially may be problematic for the patient and would require surgery. - outpatient GI / General surgery evaluation recommended Essential HTN Presented Hypotensive. BP trending upward. - Trend BP - Hold lisinopril, evaluate BP in am and need to restart [employer]GER anti-hypertensive Elevated lactate, resolved 2/2 syncopal / acute hypoxic event, received 1L IVF in ED, now resolved 2.6 --> 1.2 Code status discussed with patient. Wishes to be a full code. Reports having an advance / health directive. DPOA is and daughter. Home medications reviewed and reconciled. Quality VTE Deep Vein Thrombosis/Pulmonary Embolism Present on Admission: No
[2018-11-30 03:19] LABS: Culture Indicated Urine Cult Not Indicated; Squamous Epithelial Cell Urine 0-1 /HPF
[2018-11-30 06:18] LABS: BUN Creatinine Ratio 15.6 (6-22); Blood Urea Nitrogen 14 mg/dL (9-20); Carbon Dioxide 24 mmol/L (22-32); Chloride 111 mmol/L (98-107); Estimated Glomerular Filt Rate > 60.0 mL/min (>60); Glucose 107 mg/dL (80-110); HEMOLYSIS 20 (0-50); Potassium 4.2 mmol/L (3.4-5.1); Sodium 139 mmol/L (137-145)
[2018-11-30] MEDS: ASPIRIN 81 MG TAB PO (09:51)
[2018-11-30] MEDS: ATORVASTATIN 20 MG TABLET 80 MG PO (09:51)
[2018-11-30] MEDS: SODIUM CHLORIDE 0.9% FLUSH 10 ML IV (09:55)
--- NOTE | 2018-11-30 14:57 | CM.IDA ---
Discharge Planning/Care Management CM Discharge Assessment Start: 11/30/18 14:55 Freq: Status: Active Protocol: Document 11/30/18 14:55 BORIS (Rec: 11/30/18 14:57 BORIS [id number]) Discharge Planning Assessment Assigned Professor Of Special Education CYNTHIA Rowe DPOA/Assigned Designee Name Steffany Kramer, spouse Contact Information [phone] Advance Directives? Yes Advance Directives on File Yes History Provided By Patient Family Member Prior Living Arrangements House Household Members spouse family children Type of transporation used prior to Drives own vehicle admit Willing to Return to Facility? No Independent with ADL's Yes Is patient alert and oriented? Yes Barriers to Discharge No Comment Met w/pt and his dtr Ashely at bedside, explained SW role. Pt states he is active, indp at baseline and hopes to return home this afternoon. He has assist available from spouse and adult children as needed and has no stated concerns excpet to see the Dr to understand medical POC. No barriers to safe DC home, at functional baseline today, once medically cleared. Likely close outpt f/u once DC home. Discharge Plan Home Transportation Arrangement Family Referrals Initiated None needed Whiteboard Updated in Patient Room with Yes name and ext. # of Professor Of Special Education Review Status In Process
--- NOTE | 2018-11-30 17:03 | PM.DS.1 ---
History of Present Illness Chief complaint: Syncope Narrative: Narrative: The patient is a 78-year-old male who presented to the ED on 11/29/2018 at approximately 2018 after experiencing a syncopal events. Prior to the event, earlier in the night, patient was in his usual state of health, he just finished eating a meal (sandwich, salad, beer). He went to use the restroom, which involved a voiding episode. He did not try to strain or have bowel movement. Upon leaving the restroom patient experienced sudden onset of nausea and diaphoresis. Patient sat down to rest. Shortly after he was found by his family and noted to be ashen in appearance, slightly diaphoretic, and to exhibit shallow breathing. His eyes were closed. He was noted to exhibit clenched fists and generalized body stiffness. His mouth was agape. Family notes patient to be unresponsive and comment that there was difficulty finding a pulse. No muscle twitching was noted. No loss of bowel or bladder control. Patient was lowered to a supine position and turned to a side. Patient remained in the aforementioned state for 2-3 minutes. Thereafter, regain consciousness. At that time patient was observed to experience profuse diaphoresis. Post event family notes patient to be lethargic and patient himself notes to be tired; however, this resolved upon presentation to the ED. He appear to have regained function and strength in his upper and lower extremities almost immediately. In field, immediately post the event, SBP 50 mmHg, HR 40s, and BG 120 (per triage note). At that time patient received a 300 cc NS bolus. On presentation to the ED? T 98.4, BP 80/59, HR 54, RR 18, SpO2 100%. GCS 15. AOx3. Initial EKG revealed AFIB (v-rate 59). PMH significant for HTN, hyperlipidemia, and hiatal hernia. No prior history of heart disease, [place], TIA is, stroke, thrombosis, or seizures. Patient's home medication regimen consists of ASA 81 mg QD, atorvastatin 80 mg QD, and lisinopril 20 mg QD. He reports lack of adherence with aspirin therapy. However, he does take atorvastatin and lisinopril routinely. Patient's prescribed lisinopril doses 40 mg PO daily. He has been taking 20 mg PO daily for number of years with reported average BP of 125/75 at home. He has been on a reduced dose for years; however, did not communicate this to his PCP. Denies use of any other medications or recent change in medication doses. Drinks occasionally, no current or prior history of heavy alcohol use. No known family history of sudden cardiac or seizures. Recently experiencing stressors related to move from [place] to the local area. ED Work-Up WBC 7.2, RBC 4.13, HGB 13.2, PLT 223 NA 140, K 3.4, CO 105, CA 8.4, Alb 3.6, CO2 23, GLU 93... kidney and liver function WNL... Lactate 2.6... Trop < 0.012, CK 47, BNP < 100 UA unremarkable for infection or active sediment EKG #1, 11/29/18, 2022: AFIB w/ slow ventricular response (v-rate 59). QTc 453 EKG #2, 11/29/182113: Supraventricular rhythm, non-specific T-wave abn. (v-rate 68). QTc 458 EKG #3, 11/29/182209: SR w/ 1AVB, non-specific ST/T wave abnormalities. (v-rate 85). QTc 450. Chest XR: Cardiomegaly and large hiatal hernia. CTA Chest / Abdomen / Pelvis: No aneurysmal dilatation of the aorta, aortic dissection, or stenosis. Large hiatal hernia w/in the left hemithorax. No acute intra-abdominal findings. Head CT: No acute intracranial findings. Intracranial internal carotid artery atherosclerosis. Chronic microvascular ischemic changes present. PMH: HTN, HLD, hiatal hernia, vertigo PSH: Hernia repair, knee replacement FHx: Mother (D), brain aneurysm. Father (D), no known health history. No siblings. SHx: , lives w/ . Functionally independent. Golfs. Works out by walking 3/4 mile 3-4 times per week. Prior h/o smoking, 15 total years (1/2 ppd), quit 40 yrs ago. Drinks on occasion. No prior or current history of recreational drug use. Discharge Providers Date of admission: 11/30/18 00:32 Discharge provider: Jj Mckeon MD Discharge Date: 11/30/18 Summary Discharge Diagnosis: 1. Recurrent syncope, likely vasovagal 2. Large symptomatic hiatal hernia 3. Esophageal reflux 4. Transient paroxysmal atrial fibrillation with slow VR, likely secondary to the syncope event, further outpatient workup required, TSH pending at time of discharge Hospital Course: Patient admitted due to vasovagal syncope described under HPI. Basically he was having severe epigastric nausea and distress, sat down, and passed out. He was initially hypotensive after this event and also noted to be in a atrial fibrillation with slow VR. He has not had any subsequent episodes of AFib detected on the telemetry monitoring in hospital. Patient reports 2 prior episodes of syncope, last 1 year ago, and also 1 2 years before the current event. These prior episodes also recurred similarly in situation of GI distress. He had prior hospitalization in [place]. He does not believe echo was done in the past. This current event is suspicious for vasovagal syncope. It may be associated with acid reflux as he was having nausea and epigastric distress and has a lid very large hiatal hernia. He also notes [place] event. He does not have daily or frequent acid reflux symptoms in spite of the large hiatal hernia noted on his chest x-ray and CT. He does not have any heart murmurs to suggest severe heart valve disease or any indication of cardiomyopathy so we decided to defer echo to be done as an outpatient. Also I believe the atrial fibrillation episode was likely a secondary event to the syncope but he should have outpatient monitoring to evaluate for arrhythmia. Also Cardiology Outpatient consultation may be warranted since this is 3rd episode of syncope. GI consultation would be helpful to further evaluate hiatal hernia. Patient has been asymptomatic since admission. He understands need for close outpatient follow-up, as detailed above. He is scheduled for new patient appointment with Dr. Deshpande in February but will call on Sunday to be seen this week in light of his hospitalization. In regards to acid reflux, I ordered daily Protonix for him but he would prefer to take H2 felicitas therapy and was instructed he could substitute famotidine 20 mg daily or ranitidine 150 mg twice daily instead of Protonix and get further recommendations after he sees GI specialist. Also reviewed dietary measures such as avoiding heavy fatty meals, caffeine and alcohol and not eating 3 hr prior to bedtime to minimize reflux symptoms. His BP is 110/73 at time of discharge. This is without his morning dose of lisinopril which he takes 20 mg daily. I kept lisinopril on his med list but advised him to not take the lisinopril for now and instead to monitor his blood pressures as I am concerned he may be overmedicated. Instructed him to resume lisinopril if his blood pressures at home are running 140/90 or higher. Status at Discharge Functional status at discharge: independent ambulation Overall status at discharge: patient is back to baseline Time Spent with Patient Greater than 30 minutes Exam Vital Signs (past 8 hours): - 11/30/18 12:00 11/30/18 16:58 Temperature 97.7 F Pulse Rate 55 L Respiratory Rate 55 H Blood Pressure 115/67 Pulse Oximetry 99 96 Oxygen Delivery Method Room Air Oxygen Flow Rate 0 Objective Labs Result Diagrams: 11/29/18 20:30 11/30/18 05:25 Labs: Laboratory Results - last 24 hr 11/29/18 11/29/18 11/29/18 20:30 20:30 20:30 WBC 7.2 RBC 4.13 L Hgb 13.2 L Hct 38.8 L MCV 94.0 MCH 31.9 MCHC 33.9 RDW 13.9 Plt Count 223 Neut % (Auto) 50.8 Lymph % (Auto) 38.0 Freestone % (Auto) 9.0 Eos % (Auto) 1.4 L Baso % (Auto) 0.8 Neut # (Auto) 3700 Lymph # (Auto) 2700 Freestone # (Auto) 600 Eos # (Auto) 100 Baso # (Auto) 100 Sodium Potassium Chloride Carbon Dioxide BUN Creatinine Estimated GFR BUN/Creatinine Ratio Glucose Lactate 2.6 H Calcium Magnesium Total Bilirubin AST ALT Alkaline Phosphatase Total Creatine Kinase CK-MB (CK-2) CK-MB (CK-2) Rel Index Troponin I B-Natriuretic Peptide < 100 Total Protein Albumin Globulin Albumin/Globulin Ratio Urine Color Urine Appearance Urine pH Ur Specific Whitewood Urine Protein Urine Glucose (UA) Urine Ketones Urine Occult Blood Urine Nitrate Urine Bilirubin Urine Urobilinogen Ur Leukocyte Esterase Urine RBC Urine WBC Ur Squamous Epith Cells Urine Bacteria Ur Culture Indicated? 11/29/18 11/30/18 11/30/18 20:30 00:42 02:35 WBC RBC Hgb Hct MCV MCH MCHC RDW Plt Count Neut % (Auto) Lymph % (Auto) Freestone % (Auto) Eos % (Auto) Baso % (Auto) Neut # (Auto) Lymph # (Auto) Freestone # (Auto) Eos # (Auto) Baso # (Auto) Sodium 140 Potassium 3.4 Chloride 105 Carbon Dioxide 23 BUN 17 Creatinine 1.00 Estimated GFR > 60.0 BUN/Creatinine Ratio 17.0 Glucose 93 Lactate 1.2 Calcium 8.4 Magnesium Total Bilirubin 0.2 AST 33 ALT 32 Alkaline Phosphatase 35 L Total Creatine Kinase 47 L CK-MB (CK-2) TNP CK-MB (CK-2) Rel Index TNP Troponin I < 0.012 B-Natriuretic Peptide Total Protein 6.4 Albumin 3.6 Globulin 2.8 Albumin/Globulin Ratio 1.3 Urine Color Yellow Urine Appearance Clear Urine pH 5.0 Ur Specific Whitewood <=1.005 Urine Protein Negative Urine Glucose (UA) Negative Urine Ketones Negative Urine Occult Blood Negative Urine Nitrate Negative Urine Bilirubin Negative Urine Urobilinogen 0.2 Ur Leukocyte Esterase Negative Urine RBC None seen Urine WBC None seen Ur Squamous Epith Cells 0-1 /hpf Urine Bacteria None seen Ur Culture Indicated? Cult not indicated 11/30/18 05:25 WBC RBC Hgb Hct MCV MCH MCHC RDW Plt Count Neut % (Auto) Lymph % (Auto) Freestone % (Auto) Eos % (Auto) Baso % (Auto) Neut # (Auto) Lymph # (Auto) [place] # (Auto) Eos # (Auto) Baso # (Auto) Sodium 139 Potassium 4.2 Chloride 111 H Carbon Dioxide 24 BUN 14 Creatinine 0.90 Estimated GFR > 60.0 BUN/Creatinine Ratio 15.6 Glucose 107 Lactate Calcium 8.0 L Magnesium 2.0 Total Bilirubin AST ALT Alkaline Phosphatase Total Creatine Kinase CK-MB (CK-2) CK-MB (CK-2) Rel Index Troponin I B-Natriuretic Peptide Total Protein Albumin Globulin Albumin/Globulin Ratio Urine Color Urine Appearance Urine pH Ur Specific White[place] Urine Protein Urine Glucose (UA) Urine Ketones Urine Occult Blood Urine Nitrate Urine Bilirubin Urine Urobilinogen Ur Leukocyte Esterase Urine RBC Urine WBC Ur Squamous Epith Cells Urine Bacteria Ur Culture Indicated? Discharge Plan Discharge Plan Patient Disposition: Home Discharge Med Rec/Prescriptions Prescriptions: New pantoprazole 40 mg tablet,delayed release (DR/EC) 40 mg PO DAILY Qty: 30 RF: 0 Continue atorvastatin 80 mg tablet 80 mg PO DAILY RF: 0 aspirin 81 mg Tablet,Chewable 81 mg PO DAILY RF: 0 lisinopril 40 mg tablet 20 mg PO DAILY RF: 0 Follow up/Referrals: Zev Deshpande MD [Physician] - 3-5 Days (Needs outpatient ECHO, arrhythmia monitor, cardiology consult, GI consult) Provider Discharge Instructions Diet: Low-fat Visit Report/Discharge Packet Instructions: DI for Syncope in Adults (Fainting), Hiatal Hernia Visit Report Forms: Congestive Heart Failure, Stroke Signs & Symptoms Discharge Data Attending Provider: Crissy Bautista Admit Date/Time: 11/30/18 00:32 Quality VTE Deep Vein Thrombosis/Pulmonary Embolism Present on Admission: No
[2018-11-30 17:51] LABS: TSH w/ Reflex to FT4 0.99 uIU/mL (0.47-4.68)
== END 2018-11-30 17:45 | disposition home or self-care (01) ==
LOC: ED 22:59 → AC 11-30 00:35
PROVIDERS: Internal Medicine; Admitting Provider Nurse Practitioner Gerontology; Emergency Provider Emergency Medicine; Visit Provider Nurse Practitioner Gerontology
DX: R55 Syncope and collapse (principal); W18.30XA Fall on same level, unspecified, initial encounter; I10 Essential (primary) hypertension; E78.5 Hyperlipidemia, unspecified; Z87.891 Personal history of nicotine dependence; K44.9 Diaphragmatic hernia without obstruction or gangrene; I48.0 Paroxysmal atrial fibrillation
CPT/HCPCS: 36415; 36591; 70450; 71045; 71275; 74174; 80048; 80053; 81001; 82550; 82962; 83605; 83735; 83880; 84443; 84484; 85025; 93005; 99285; G0378; C9113; J2405; Q9967

== ENCOUNTER → 2018-12-12 12:27 | Outpatient (CLI) | payer MEDICARE, SELFPAY ==
[2018-11-30 00:40] VITALS: BMI 29.5
--- NOTE | 2018-12-12 12:29 | DI.ECHO.S_ITS ---
[facility] +---------+ : : [address] : [place] : : : : [id number] : : : : Phone: [phone]+ Echocardiogram Report + + :Name: SYMONE DAHL Study Date: 12/12/2018 Height: 69 in : :[facility] Weight: 177 lb : : Gender: Male BSA: 2.0 m2 : :: 1940 Age: 78 yrs BP: 144/84 mmHg: :Reason For Study: Syncope : : Performed By: Chloe Varela : :Referring: JENN JANE : + + Interpretation Summary The left ventricle is normal in size, wall thickness, and systolic function without any focal wall motion abnormalities. The ejection fraction is estimated to be 60-65%. The right ventricle grossly appears normal in size with probable normal systolic function. The right ventricular systolic pressure is estimated to be at least 27 mmHg based on an estimated right atrial pressure of 3 mm Hg. The ascending aorta is mildly enlarged. -Overall this echo shows normal biventricular function and no hemodynamically significant valvular disease. -The ascending aorta is mildly enlarged. -The etiology of patient's syncope could not be determined based on this echo. -No prior echo for comparison. Procedure: A two-dimensional transthoracic echocardiogram with color flow and Doppler was performed. The study quality was technically adequate. There is no prior echocardiogram noted for this patient. The patient was in normal sinus rhythm during the exam. Left Ventricle: The left ventricle is normal in size, wall thickness, and systolic function without any focal wall motion abnormalities. The ejection fraction is estimated to be 60-65%. Diastolic parameters suggest a pseudonormalization pattern, consistent with probable elevated filling pressures. However, the mitral annular tissue Doppler velocities are decreased. Right Ventricle: The right ventricle grossly appears normal in size with probable normal systolic function. Atria: The left atrial size is normal. Right atrial size is normal. The interatrial septum is intact with no evidence for an atrial septal defect. Mitral Valve: The mitral valve is normal in structure and function. There is no mitral regurgitation noted. Aortic Valve: The aortic valve is trileaflet. The aortic valve opens well. There is mild aortic valve sclerosis. No aortic regurgitation is present. Tricuspid Valve: The tricuspid valve is normal in structure and function. There is trace tricuspid regurgitation. The right ventricular systolic pressure is estimated to be at least 27 mmHg based on an estimated right atrial pressure of 3 mm Hg. Pulmonic Valve: The pulmonic valve is normal in structure and function. There is trace pulmonic regurgitation. Great Vessels: The aortic root is mildly dilated. The ascending aorta is mildly enlarged. The aortic arch is at the upper limits of normal in size. The IVC is of normal diameter and collapses greater than 50% with a sniff. This suggests a low right atrial pressure of 3 mm Hg. Pericardium/ Pleura There is no pericardial effusion. There is no pleural effusion. MMode/2D Measurements & Calculations LVIDd: 4.8 cm Ao root diam: 3.9 cm LVIDs: 2.8 cm Aortic Jxn: 2.9 cm FS: 40.9 % asc Aorta Diam: 3.8 cm EPSS: 0.49 cm Ao Arch Diam (Prox Trans): 3.2 cm IVSd: 0.79 cm LVPWd: 0.73 cm LV arriaga. diameter/BSA (cm/m^2): 2.5 LV sys. diameter/BSA (cm/m^2): 1.4 LA dimension: 2.3 cm RA long axis: 5.5 cm LA A2 area: 22.8 cm2 RA area: 19.3 cm2 LA A4 area: 22.7 cm2 RA vol: 57.5 ml LA length (vol): 6.4 cm RA : 29.3 ml/m2 LA vol: 68.8 ml IVC diam: 1.6 cm LA vol index: 35.1 ml/m2 RVDd major: 5.7 cm RVD1 (basal): 3.6 cm RVD2 (mid): 2.6 cm Doppler Measurements & Calculations Ao V2 max: 117.2 cm/sec MV E max liam: 59.8 cm/sec Ao V2 mean: 78.1 cm/sec MV A max liam: 91.7 cm/sec Ao max P.5 mmHg MV E/A: 0.65 Ao mean P.8 mmHg Med Peak E' Liam: 4.0 cm/sec Ao V2 VTI: 26.0 cm E/E' med: 15.0 Lat Peak E' Liam: 5.8 cm/sec E/E' lat: 10.3 E/e' average: 12.6 MV dec time: 0.28 sec MV P1/2t: 80.1 msec TR max liam: 245.2 cm/sec MV P1/2t max liam: 60.4 cm/sec TR max P.1 mmHg MVA(P1/2t): 2.7 cm2 PA V2 max: 68.8 cm/sec PA V2 mean: 49.7 cm/sec PA mean P.1 mmHg PA Accel Time: 0.15 sec Electronically signed by: Tyshawn Cabral M.D. on Reading Physician:12/12/2018 10:08 PM
== END ==
PROVIDERS: PCP Student in an Organized Health Care Education/Training Program; Visit Provider Student in an Organized Health Care Education/Training Program
DX: I35.8 Other nonrheumatic aortic valve disorders (principal); R55 Syncope and collapse
CPT/HCPCS: 93306

== ENCOUNTER → 2018-12-30 10:58 | Outpatient (CLI) | payer MEDICARE, SELFPAY ==
[2018-11-30 00:40] VITALS: BMI 29.5
--- NOTE | 2019-01-17 16:17 | PM.CARDMON.1 ---
Business Operations Coordinator Report Referral & Results Date Patient Seen: 12/30/18 Requesting provider: Zev Deshpande Indication: Syncope Duration of monitoring (days): 14 Diary information: No patient diary entries No patient triggered events Data: Minimum heart rate identified was 41 beats per minute at 04:23 on 01/09/2019 Maximum sinus heart rate was 124 beats per minute at 10:20 on 01/09/2019 Maximum overall heart rate was 210 beats per minute at 22:37 on 01/08/2019 occurring during a 4 beat run of ventricular tachycardia 3.1% of identified beats were supraventricular ectopic in origin Less than 1% of identify beats were ventricular ectopic in origin 230 for runs of what appears to be in SVT also were present the fastest being 171 beats per minute and the longest lasting 20.7 sec Impression: Single 4 beat run of ventricular tachycardia as above More frequent episodes of SVT however very short duration Prominent supraventricular dysrhythmia as above Clinical correlation suggested
== END ==
PROVIDERS: PCP Student in an Organized Health Care Education/Training Program; Visit Provider Student in an Organized Health Care Education/Training Program
DX: R55 Syncope and collapse (principal)
CPT/HCPCS: 0296T; 0298T

== ENCOUNTER → 2019-02-20 09:15 | Outpatient (CLI) | payer MEDICARE, SELFPAY ==
[2018-11-30 00:40] VITALS: BMI 29.5
[2019-02-20 10:17] LABS: Add Manual Diff / Slide Review NO; Basophils Absolute Auto 0 /uL (0-100); Basophils Percent Auto 0.8 % (0-2); Eosinophils Absolute Auto 100 /uL (0-450); Eosinophils Percent Auto 1.3 % (2-4); Hematocrit 41.4 % (41-53); Lymphocytes Absolute Auto 1100 /uL (1100-4500); Lymphocytes Percent Auto 23.2 % (25-40); Mean Corpuscular HGB Conc 33.7 % (30-36); Mean Corpuscular Hemoglobin 31.7 PG (26-34); Mean Corpuscular Volume 94.2 fL (80-100); Monocytes Absolute Auto 300 /uL (0-900); Monocytes Percent Auto 7.1 % (3-14); Neutrophils Absolute Auto 3200 /uL (1500-7000); Neutrophils Percent Auto 67.6 % (50-75); Platelet Count 199 X10^3/uL (150-400); Red Cell Distribution Width 14.2 % (11.6-14.8); White Blood Cell Count 4.8 X10^3/uL (4.5-11.0)
[2019-02-20 10:34] LABS: Alanine Aminotransferase 26 IU/L (21-72); Albumin 3.9 g/dL (3.5-5.0); Albumin Globulin Ratio 1.3 (1.0-2.8); Alkaline Phosphatase 38 U/L (38-126); Aspartate Aminotransferase 27 IU/L (17-59); BUN Creatinine Ratio 15.6 (6-22); Bilirubin Total 0.5 mg/dL (0.2-1.3); Blood Urea Nitrogen 14 mg/dL (9-20); Carbon Dioxide 27 mmol/L (22-32); Chloride 106 mmol/L (98-107); Cholesterol 141 mg/dL (140-199); Estimated Glomerular Filt Rate > 60.0 mL/min (>60); Globulin 2.9 g/dL (1.7-4.1); Glucose 87 mg/dL (80-110); HDL Cholesterol 49 mg/dL (40-60); HEMOLYSIS < 15 (0-50); LDL Cholesterol Calculated 79 mg/dL (<100); Magnesium 2.1 mg/dL (1.6-2.3); Potassium 4.5 mmol/L (3.4-5.1); Sodium 142 mmol/L (137-145); Total Protein 6.8 g/dL (6.3-8.2); Triglycerides 63 mg/dL (35-150)
[2019-02-20 11:21] LABS: Thyroid Stimulating Hormone 1.69 uIU/mL (0.47-4.68)
== END ==
PROVIDERS: Family Provider Student in an Organized Health Care Education/Training Program; PCP Student in an Organized Health Care Education/Training Program; Visit Provider Internal Medicine Cardiovascular Disease
DX: E78.5 Hyperlipidemia, unspecified (principal); I48.0 Paroxysmal atrial fibrillation; I10 Essential (primary) hypertension
CPT/HCPCS: 36415; 80053; 80061; 83735; 84443; 85025

== ENCOUNTER 2019-03-10 15:39 | Emergency (ER) | payer MEDICARE, SELFPAY ==
[2018-11-30 00:40] VITALS: BMI 29.5
[2019-03-10] MEDS: SODIUM CHLORIDE 0.9% 1,000 ML 1000 ML IV (15:30)
[2019-03-10 15:39] VITALS: BP 127/71; PULSE 88; RESP 14; TEMP 36.4; O2SAT 92
--- NOTE | 2019-03-10 15:48 | ED.ABDPAIN ---
HPI - Abdominal Pain General Chief Complaint: Abdominal Pain Stated Complaint: hypotensive, diarrhea Time Seen by Provider: 03/10/19 15:44 Source: patient and EMS Mode of arrival: EMS Limitations: no limitations History of Present Illness HPI narrative: Patient is a 78-year-old male presents with abdominal pain. He says that he has had at least 6 episodes of diarrhea this morning and cramping. No fever nausea or vomiting. He says he was doing well last evening. He was extremely sweaty and diaphoretic when EMS arrived. Blood pressure was in the 80s. Now after 500 cc of IV fluids of blood pressure is much better. He has not passed out. He has some mild abdominal cramping. He said he was here in November with something similar but at that time he actually passed out and was seen by guest service representative afterwards. He did not pass out today. Related Data Home Medications Medication Instructions Recorded Confirmed aspirin 81 mg PO DAILY 11/29/18 03/10/19 metoprolol succinate ER 25 mg 25 mg PO DAILY 03/04/19 03/10/19 capsule sprinkle, ext. release 24 hr Vitamin C 1 tab PO DAILY 03/10/19 03/10/19 atorvastatin 40 mg PO DAILY 03/10/19 03/10/19 coQ10 (liposomal ubiquinol) 1 dose PO DAILY 03/10/19 03/10/19 famotidine 20 mg PO DAILY 03/10/19 03/10/19 lisinopril 20 mg PO DAILY 03/10/19 03/10/19 multivitamin 1 tab PO DAILY 03/10/19 03/10/19 Allergies Allergy/AdvReac Type Severity Reaction Status Date / Time No Known Drug Allergies Allergy Unverified 03/10/19 15:48 Review of Systems Review of Systems ROS Unobtainable: All systems reviewed & are unremarkable except as noted in HPI and below Constitutional Denies chills, Denies fever(s), Denies lethargy and Denies weakness Eyes Denies change in vision, Denies eye discharge, Denies irritation and Denies loss of vision Cardiovascular Denies chest pain, Denies irregular heart rhythm, Denies lightheadedness, Denies palpitations and Denies orthopnea Gastrointestinal Gastrointestinal: Reports as per HPI, Reports abdominal pain and Reports diarrhea Musculoskeletal Denies back pain, Denies muscle weakness, Denies numbness and Denies tingling Integumentary/Breasts Denies pruritus, Denies erythema, Denies rash and Denies wounds Neurologic Denies confusion, Denies loss of vision, Denies numbness, Denies tingling and Denies weakness Psychiatric Denies anxiety, Denies confusion, Denies depression, Denies homicidal ideation and Denies suicidal ideation Endocrine Denies palpitations [facility] Medical History GERD (gastroesophageal reflux disease) (Chronic) Hearing loss (Chronic) High cholesterol (Chronic) Hypertension (Chronic) Mumps (Resolved ~194) Vertigo (Resolved ~2016) Surgical History Anesthesia (Resolved) History of hernia surgery (Resolved ~1971) History of knee surgery (Resolved ~1969) Family History (Updated 02/13/19 @ 22:03 by Cookie Starks) Mother Brain aneurysm Social History household members: spouse, family and children Smoking Status: Former smoker Family History Mother Brain aneurysm Social History household members: spouse, family and children Smoking Status: Former smoker Exam Initial Vital Signs Initial Vital Signs: Vital Signs Temperature 97.6 F 03/10/19 15:39 Pulse Rate 88 03/10/19 15:39 Respiratory Rate 14 03/10/19 15:39 Blood Pressure 127/71 03/10/19 15:39 Pulse Oximetry 92 03/10/19 15:39 GENERAL: Alert elderly gentleman no acute distress HEENT: Head atraumatic,EOMI, pupils reactive, face symmetric, moist mucous membranes CARDIOVASCULAR: Regular rate and rhythm without murmurs, rubs or gallops. RESPIRATORY: Breath sounds equal bilaterally, no wheezes rales or rhonchi. ABDOMEN: Soft, nontender. Normoactive bowel sounds all 4 quadrants. No guarding or rebound. EXTREMITIES: Normal range of motion, no clubbing or edema. Neurovascularly intact NEUROLOGICAL: Alert and oriented x4.Normal gait and speech. Cranial nerves II through XII grossly intact. SKIN: Warm, dry, no laceration, no petechiae, no rashes or lesions. Course Orders Ordered: ED Orders 03/10/19 15:46 EKG-12 Lead Routine 03/10/19 16:27 Complete Blood Count AUTO DIFF Stat Comprehensive Metabolic Panel Stat Lipase Stat Discontinued Medications Sodium Chloride (Normal Saline 0.9%) 1,000 mls @ 1,000 mls/hr IV CONT REHAN Last Infusion: 03/10/19 16:21 Dose: 0 mls/hr Admin: 03/10/19 15:30 Dose: 1,000 mls/hr Sodium Chloride (Normal Saline 0.9%) 1,000 mls @ 150 mls/hr IV CONT REHAN Last Admin: 03/10/19 16:25 Dose: 150 mls/hr Vital Signs - 8 hr 03/10/19 15:39 03/10/19 16:00 03/10/19 16:27 Temperature 97.6 F Pulse Rate 88 91 H 76 Respiratory Rate 14 19 20 Blood Pressure 127/71 Blood Pressure [Right Arm] 129/78 134/75 Pulse Oximetry 92 98 100 03/10/19 17:30 Temperature Pulse Rate 70 Respiratory Rate 14 Blood Pressure Blood Pressure [Right Arm] 130/76 Pulse Oximetry 98 MDM - Abdominal Pain Lab Data Attestation: I reviewed the patient's lab results. Result diagrams: 03/10/19 16:27 03/10/19 16:27 Lab Results 03/10/19 03/10/19 Range/Units 16:27 16:27 WBC 10.0 (4.5-11.0) X10^3/uL RBC 4.60 (4.5-5.9) X10^6/uL Hgb 14.3 (13.5-17.5) g/dL Hct 43.4 (41-53) % MCV 94.4 (80-100) fL MCH 31.2 (26-34) PG MCHC 33.0 (30-36) % RDW 14.3 (11.6-14.8) % Plt Count TNP Neut % (Auto) 95.5 H (50-75) % Lymph % (Auto) 1.8 L (25-40) % [place] % (Auto) 1.7 L (3-14) % Eos % (Auto) 0.6 L (2-4) % Baso % (Auto) 0.4 (0-2) % Neut # (Auto) 9500 H (3036-0288) /uL Lymph # (Auto) 200 L (6170-7730) /uL [place] # (Auto) 200 (0-900) /uL Eos # (Auto) 100 (0-450) /uL Baso # (Auto) 0 (0-100) /uL Sodium 139 (137-145) mmol/L Potassium 4.2 (3.4-5.1) mmol/L Chloride 105 (98-107) mmol/L Carbon Dioxide 26 (22-32) mmol/L BUN 22 H (9-20) mg/dL Creatinine 0.80 (0.66-1.25) mg/dL Estimated GFR > 60.0 (>60) mL/min BUN/Creatinine Ratio 27.5 H (6-22) Glucose 110 (80-110) mg/dL Calcium 8.3 L (8.4-10.2) mg/dL Total Bilirubin 0.8 (0.2-1.3) mg/dL AST 28 (17-59) IU/L ALT 28 (21-72) IU/L Alkaline Phosphatase 46 (38-126) U/L Total Protein 6.7 (6.3-8.2) g/dL Albumin 3.8 (3.5-5.0) g/dL Globulin 2.9 (1.7-4.1) g/dL Albumin/Globulin Ratio 1.3 (1.0-2.8) Lipase 231 (23-300) U/L ECG Data Attestation: I personally reviewed and interpreted this ECG as follows: Prior ECG tracings: available for review Interpretation: Normal sinus rhythm rate [address] changes no T-wave inversions OR interval 229 MDM Narrative Medical decision making narrative: Patient's abdomen is soft nondistended. at this time ago think he needs any abdominal imaging. Blood work is reassuring. No episodes of nausea or vomiting tolerating fluids okay. He actually has any man had bloody stool. He was previously seen in November for a syncopal episode. Patient and family agree located home. At this time with more likely viral gastroenteritis. Patient did not pass out no chest pain no heart palpitations. Discharge Plan Departure Patient Disposition: Home Clinical Impression: Gastroenteritis Discharge Date/Time: 03/10/19 19:00 Interventions: ED Discharge Assessment Last Done: 03/10/19 19:00 Instructions: DI for Viral Gastroenteritis -- Adult Activity Restrictions/Additional Instructions: *You have been diagnosed with gastroenteritis *What to do: Fluid as tolerated *Continue to take medications as directed *Follow up with your primary care provider in 2-3 days *Return to ER if you should have worsening diarrhea, increased abdominal pain, bloody diarrhea, persistent vomiting or any new, worsening or concerning symptoms Prescriptions: No Action metoprolol succinate 25 mg [place],ER 24hr dose pack 25 mg PO DAILY RF: 0 lisinopril 10 mg tablet 20 mg PO DAILY RF: 0 atorvastatin 80 mg tablet 40 mg PO DAILY RF: 0 famotidine 20 mg Tablet 20 mg PO DAILY RF: 0 multivitamin Tablet,Chewable 1 tab PO DAILY RF: 0 Vitamin C 1 tab PO DAILY RF: 0 coQ10 (liposomal ubiquinol) 1 dose PO DAILY RF: 0 aspirin 81 mg Tablet,Chewable 81 mg PO DAILY RF: 0 Referrals: Zev Deshpande MD [Primary Care Provider] -
[2019-03-10 16:00] VITALS: BP 129/78; PULSE 91; RESP 19; O2SAT 98
[2019-03-10] MEDS: SODIUM CHLORIDE 0.9% 1,000 ML 150 ML IV (16:25)
[2019-03-10 16:27] VITALS: BP 134/75; PULSE 76; RESP 20; O2SAT 100
[2019-03-10 16:48] LABS: Add Manual Diff / Slide Review NO; Basophils Absolute Auto 0 /uL (0-100); Basophils Percent Auto 0.4 % (0-2); Eosinophils Absolute Auto 100 /uL (0-450); Eosinophils Percent Auto 0.6 % (2-4); Hematocrit 43.4 % (41-53); Hemoglobin 14.3 g/dL (13.5-17.5); Lymphocytes Absolute Auto 200 /uL (1100-4500); Lymphocytes Percent Auto 1.8 % (25-40); Mean Corpuscular Hemoglobin 31.2 PG (26-34); Mean Corpuscular Volume 94.4 fL (80-100); Monocytes Absolute Auto 200 /uL (0-900); Monocytes Percent Auto 1.7 % (3-14); Neutrophils Absolute Auto 9500 /uL (1500-7000); Neutrophils Percent Auto 95.5 % (50-75); Red Cell Distribution Width 14.3 % (11.6-14.8)
[2019-03-10 17:02] LABS: Alanine Aminotransferase 28 IU/L (21-72); Albumin 3.8 g/dL (3.5-5.0); Albumin Globulin Ratio 1.3 (1.0-2.8); Alkaline Phosphatase 46 U/L (38-126); Aspartate Aminotransferase 28 IU/L (17-59); BUN Creatinine Ratio 27.5 (6-22); Bilirubin Total 0.8 mg/dL (0.2-1.3); Blood Urea Nitrogen 22 mg/dL (9-20); Calcium 8.3 mg/dL (8.4-10.2); Carbon Dioxide 26 mmol/L (22-32); Chloride 105 mmol/L (98-107); Estimated Glomerular Filt Rate > 60.0 mL/min (>60); Globulin 2.9 g/dL (1.7-4.1); Glucose 110 mg/dL (80-110); HEMOLYSIS 26 (0-50); Lipase 231 U/L (23-300); Potassium 4.2 mmol/L (3.4-5.1); Sodium 139 mmol/L (137-145); Total Protein 6.7 g/dL (6.3-8.2)
[2019-03-10 17:30] VITALS: BP 130/76; PULSE 70; RESP 14; O2SAT 98
--- NOTE | 2019-03-26 08:39 | PC.NURSE ---
03/10/2019 at 1530 infusion complete NS at 1000ml infused prior to discharge.
--- NOTE | 2019-04-14 17:51 | PC.NURSE ---
Per SD RN, pt received NS 1000ml completed at 1845
== END 2019-03-10 19:00 | disposition home or self-care (01) ==
PROVIDERS: Emergency Provider Emergency Medicine; Family Provider Student in an Organized Health Care Education/Training Program; PCP Student in an Organized Health Care Education/Training Program
DX: K52.9 Noninfective gastroenteritis and colitis, unspecified (principal); I95.9 Hypotension, unspecified
CPT/HCPCS: 36415; 80053; 83690; 85025; 93005; 96360; 96361; 99283; 99284

== ENCOUNTER → 2019-03-24 13:45 | Outpatient (CLI) | payer MEDICARE, SELFPAY ==
[2018-11-30 00:40] VITALS: BMI 29.5
--- NOTE | 2019-03-24 14:53 | PM.TREADMILL ---
Cardiac Stress Test Report Referral & Results Date Patient Seen: 03/24/19 Requesting provider: Lizzette Butt Indication: Paroxysmal atrial fibrillation Rest ECG: Sinus rhythm with very frequent PACs Procedure Note: Today following both written and verbal informed consent the patient was exercised according to a standard Wade protocol patient went for a total of 6 minutes 0 seconds achieving a maximum heart rate of 135 maximum systolic blood pressure of 178. This is approximately 7.0 METS. Exercise was terminated at this point because of targets were met. Patient was also given Cardiolite through a previously started Hep-Lock IV by the nuclear instructor approximately 1 minute prior to the cessation of exercise. No ST-T segment changes Frequent PACs the rest as above Normal heart rate will pressure response Functional aerobic impairment rated 0 the active scale, patient could have continued longer and was stopped early because targets were met Impression: No evidence of ischemia Better than average exercise capacity Please see perfusion imaging report as well Please note: Actual ECG tracings can be found in the PACS system.
--- NOTE | 2019-03-25 18:52 | DI.NM.S_ITS ---
DATE OF SERVICE: 03/24/2019 PROCEDURE: Exercise perfusion study. INDICATIONS: Nonsustained ventricular tachycardia, syncope, paroxysmal atrial fibrillation, hypertension. RADIOPHARMACEUTICAL: 25.4 mCi technetium-99m Myoview IV was injected at stress and 25.6 mCi technetium-99m Myoview IV was injected at rest. CARDIAC STRESS: Patient underwent exercise perfusion study under the supervision of an attending staff. Patient walked on Wade protocol for 6 minutes achieved 96% of target heart rate, with normal blood pressure response. No significant symptoms were reported. Baseline EKG revealed sinus rhythm. During stress, there was some nonspecific ST changes. Patient had some PACs as well. No significant sustained ventricular tachycardia seen. Patient achieved 7 METs of workload. Functional aerobic impairment, 0%. RAW DATA: There was increased subdiaphragmatic activity. GATED STUDY: Stress LV ejection fraction 74% and resting LV ejection fraction 70%. No obvious wall motion abnormalities. No transient ischemic dilatation. TID ratio 0.96, which is within normal limits. Resting end-diastolic volume is 92 mL. Lung/heart ratio is 0.18, which is within normal limits. Stress end- diastolic volume 94 mL. MYOCARDIAL PERFUSION SCAN: Resting supine images revealed small-sized mildly decreased perfusion of distal anterior septum. Stress supine and stress prone images revealed normal myocardial perfusion. CONCLUSION: I will call this study a normal myocardial perfusion study. Overall, LV function is preserved. No significant sustained arrhythmias seen. As far as perfusion scan is concerned, this is a low-risk myocardial perfusion scan. Shai Kramer - JIGNESH/areli/ doc#: [id number]/job#: [id number] dd: 03/25/2019 17:07:00 dt: 03/25/2019 18:35:00 DICTATING MD/COPIES TO: Lizzette Butt MD COPIES MNE: RYAN
== END ==
PROVIDERS: Family Provider Internal Medicine; PCP Student in an Organized Health Care Education/Training Program; Visit Provider Internal Medicine Cardiovascular Disease
DX: I48.0 Paroxysmal atrial fibrillation (principal)
CPT/HCPCS: 78452; 93016; 93017; 93018; A9502

== ENCOUNTER → 2020-08-17 10:39 | Outpatient (CLI) | payer MEDICARE, SELFPAY ==
[2019-12-25 16:02] VITALS: BMI 29.5
[2020-08-17 12:43] LABS: BUN Creatinine Ratio 22.2 (6-22); Blood Urea Nitrogen 20 mg/dL (9-20); Calcium 8.5 mg/dL (8.4-10.2); Carbon Dioxide 30 mmol/L (22-32); Chloride 104 mmol/L (98-107); Cholesterol 151 mg/dL (140-199); Estimated Glomerular Filt Rate > 60.0 mL/min (>60); Glucose 81 mg/dL (80-110); HDL Cholesterol 48 mg/dL (40-60); HEMOLYSIS < 15 (0-50); LDL Cholesterol Calculated 93 mg/dL (<100); Potassium 4.4 mmol/L (3.4-5.1); Sodium 137 mmol/L (137-145); Triglycerides 50 mg/dL (35-150)
== END ==
PROVIDERS: Family Provider Internal Medicine; PCP Student in an Organized Health Care Education/Training Program; Referring Provider Student in an Organized Health Care Education/Training Program; Visit Provider Student in an Organized Health Care Education/Training Program
DX: E78.5 Hyperlipidemia, unspecified (principal); I10 Essential (primary) hypertension
CPT/HCPCS: 36415; 80048; 80061

== ENCOUNTER → 2020-12-09 14:46 | Outpatient (CLI) | payer MEDICARE, SELFPAY ==
[2019-12-25 16:02] VITALS: BMI 29.5
[2020-12-09] MEDS: COVID-19 VACC #1, MRNA(MOD) 100 MCG/0.5 ML VIAL IM (14:51)
== END ==
PROVIDERS: Family Provider Internal Medicine; PCP Student in an Organized Health Care Education/Training Program; Visit Provider Internal Medicine
DX: Z23 Encounter for immunization (principal)
CPT/HCPCS: 0011A; 91301

== ENCOUNTER → 2021-01-06 14:35 | Outpatient (CLI) | payer MEDICARE, SELFPAY ==
[2019-12-25 16:02] VITALS: BMI 29.5
[2021-01-06] MEDS: COVID-19 VACC #2, MRNA(MOD) 100 MCG/0.5 ML VIAL IM (14:52)
== END ==
PROVIDERS: PCP Student in an Organized Health Care Education/Training Program; Visit Provider Internal Medicine
DX: Z23 Encounter for immunization (principal)
CPT/HCPCS: 0012A; 91301

== ENCOUNTER → 2021-09-01 10:32 | Outpatient (CLI) | payer MEDICARE, SELFPAY ==
[2019-12-25 16:02] VITALS: BMI 29.5
[2021-09-01 12:48] LABS: BUN Creatinine Ratio 16.5 (6-22); Blood Urea Nitrogen 15 mg/dL (9-20); Carbon Dioxide 30 mmol/L (22-32); Chloride 103 mmol/L (98-107); Estimated Glomerular Filt Rate > 60.0 mL/min (>60); Glucose 81 mg/dL (80-110); HEMOLYSIS 20 (0-50); Potassium 5.2 mmol/L (3.4-5.1); Sodium 139 mmol/L (137-145)
== END ==
PROVIDERS: PCP Student in an Organized Health Care Education/Training Program; Referring Provider Student in an Organized Health Care Education/Training Program; Visit Provider Student in an Organized Health Care Education/Training Program
DX: I10 Essential (primary) hypertension (principal)
CPT/HCPCS: 36415; 80048

== ENCOUNTER 2021-12-25 19:43 | Inpatient (IN) | payer MEDICARE, SELFPAY ==
[2019-12-25 16:02] VITALS: BMI 29.5
[2021-12-25] VITALS (39 sets, daily range): BP systolic 60–190; BP diastolic 40–103; PULSE 49–116; RESP 16–107; TEMP 36.1–36.6; O2SAT 59–100; BMI 26.6
--- NOTE | 2021-12-25 19:46 | ED.GENADULT ---
HPI - General Adult General Chief complaint: Syncope Stated complaint: Syncope Time Seen by Provider: 12/25/21 19:45 Source: patient Mode of arrival: EMS Limitations: no limitations History of Present Illness HPI narrative: 81-year-old male who arrived by EMS for evaluation of multiple syncopal episodes. EMS was called by the patient's family after he passed out home. Reports that he was unconscious for couple minutes. There was no seizure-like activity. He did vomit during the time. Here in emergency department patient was alert oriented. He states that he does not remember passing out. Did not appear to have any prodrome wall symptoms. His only complaint currently is some nausea and a cough and abdominal discomfort. He states this is not the 1st time this has happened to him. He knows that he has a hiatal hernia. For the past several years when he ?eats too much ?he states that he gets abdominal pain and then passes out. He has talk to his primary doctor about this. The running the res that it stimulates his vagal nerve which causes him to pass out. Today he was watching the Super Bowl when he ate too much food causing the symptoms. The abdominal pain he has currently his when he states that he always gets. States that he gradually improves and then his abdominal pain is gone. Reports no injuries from passing out Related Data Home Medications Medication Instructions Recorded Confirmed aspirin 81 mg chewable tablet 81 mg PO DAILY 11/29/18 02/22/21 Vitamin C 1 tab PO DAILY 03/10/19 02/22/21 coQ10 (liposomal ubiquinol) 1 dose PO DAILY 03/10/19 02/22/21 multivitamin 1 tab PO DAILY 03/10/19 02/22/21 Previous Rx's Medication Instructions Recorded atorvastatin 20 mg tablet 20 mg PO BEDTIME #90 tab 02/22/21 lisinopril 20 mg tablet 20 mg PO DAILY #90 tab 06/07/21 Allergies Allergy/AdvReac Type Severity Reaction Status Date / Time No Known Drug Allergies Allergy Unverified 12/25/21 19:49 Review of Systems Review of Systems ROS Unobtainable: All systems reviewed & are unremarkable except as noted in HPI and below Constitutional Constitutional: Denies fever(s) and Denies headache(s) Eyes Eyes: Reports system reviewed and no additional complaints, except as documented ENT Ears, Nose, Mouth, and Throat: Denies vertigo and Denies headache(s) Cardiovascular Cardiovascular: Denies chest pain, Reports syncope, Denies rapid heart rate, Denies lightheadedness and Denies dyspnea Respiratory Respiratory: Reports cough and Denies dyspnea Gastrointestinal Gastrointestinal: Reports abdominal pain, Denies change in bowel habits, Reports nausea and Reports vomiting Genitourinary Genitourinary: Reports system reviewed and no additional complaints, except as documented Musculoskeletal Musculoskeletal: Denies arthralgias, Denies back pain and Denies arthralgias Integumentary/Breasts Skin/Breast: Denies system reviewed and no additional complaints, except as documented Neurologic Neurologic: Denies vertigo, Reports syncope, Denies headache(s) and Denies seizure-like activity Psychiatric Psychiatric: Reports system reviewed and no additional complaints, except as documented Hematologic/Lymphatic On Anticoagulants: No Allergic/Immunologic Allergic/Immunologic: Reports system reviewed and no additional complaints, except as documented Patient History Medical History GERD (gastroesophageal reflux disease) Hearing loss Hyperlipidemia Hypertension Mumps (~1945) Syncope Vertigo (~2017) Surgical History Anesthesia History of hernia surgery (~1972) History of knee surgery (~1970) Family History Mother Brain aneurysm Social History household members: spouse, family and children Smoking Status: Former smoker alcohol intake: current Smoking Status: Former smoker alcohol intake frequency: 0-2 drinks per day Substance Use Type: does not use Exam Initial Vital Signs Initial Vital Signs: Vital Signs Pulse Rate 93 H 12/25/21 19:45 Pulse Oximetry 92 12/25/21 19:45 Const General: comfortable and diaphoretic HENMT Head: normal to inspection and normocephalic Eyes General: appearance normal, both eyes and all related structures Neck Neck: normal visual inspection Chest Chest: No crepitus and No tenderness Resp Effort & Inspection: not labored, no respiratory distress and tachypneic Auscultation: crackles Cardio Rate: bradycardic Rhythm: regular rhythm GI Inspection: normal to inspection and non-distended Palpation: soft, No firm, No guarding and No tender Back/Spine/Pelvis Back: normal to inspection Skin General: no rashes or lesions noted Neuro General: patient alert, patient awake, patient oriented x3 and moves all extremities Cognition: normal cognition Speech: speech normal Extrem General: normal to inspection and capillary refill normal Psych Appearance: grossly normal and well kempt Scores GCS [place] coma scale eye opening: Spontaneous [place] coma scale verbal response: Orientated [place] coma scale motor response: Obey commands [place] coma scale total score: 15 Course Orders Ordered: ED Orders 12/25/21 19:48 XR chest 1V Stat EKG-12 Lead Stat 12/25/21 19:49 Complete Blood Count AUTO DIFF Stat Comprehensive Metabolic Panel Stat Lipase Stat Troponin & CK Cardiac Panel Stat 12/25/21 19:52 COVID19 -Nasal swab/Pre-Proc Stat Piperacillin Sod/Tazobactam (Sod 3.375 gm/ Sodium Chloride) 100 mls @ 25 mls/hr IV Q8H REHAN Piperacillin Sod/Tazobactam (Sod 4.5 gm/ Sodium Chloride) 100 mls @ 200 mls/hr IV NOW ONE Stop: 12/26/21 00:29 Ondansetron HCl (Ondansetron 4 Mg/2 Ml Inj) 4 mg IV Q8HR PRN PRN Reason: Nausea And Vomiting Discontinued Medications Furosemide (Furosemide 40 Mg/4 Ml Vial) 40 mg IV NOW ONE Stop: 12/25/21 22:32 Last Admin: 12/25/21 22:36 Dose: 40 mg Documented by: MARSHALL Sodium Chloride (Normal Saline 0.9%) 1,000 mls @ 125 mls/hr IV CONT REHAN Last Infusion: 12/25/21 22:34 Dose: 0 mls/hr Documented by: Admin: 12/25/21 19:55 Dose: 125 mls/hr Documented by: ATAYLOR Sodium Chloride (Normal Saline 0.9%) 1,000 mls @ 1,000 mls/hr IV BOLUS ONE Stop: 12/25/21 22:28 Last Infusion: 12/25/21 22:36 Dose: 0 mls/hr Documented by: Admin: 12/25/21 22:35 Dose: 1,000 mls/hr Documented by: MARSHALL Ondansetron HCl (Ondansetron 4 Mg/2 Ml Inj) 4 mg IV NOW ONE Stop: 12/25/21 19:51 Last Admin: 12/25/21 19:55 Dose: 4 mg Documented by: OZIEL Pantoprazole Sodium (Pantoprazole 40 Mg Vial) 40 mg IV NOW ONE Stop: 12/25/21 21:22 Last Admin: 12/25/21 22:34 Dose: 40 mg Documented by: MARSHALL Vital Signs Vital signs: Vital Signs - 8 hr 12/25/21 19:45 12/25/21 19:46 12/25/21 19:47 Temperature 98 F Pulse Rate 93 H 91 H 92 H Respiratory Rate 18 Blood Pressure 154/90 H 154/90 H Pulse Oximetry 92 92 91 12/25/21 20:00 12/25/21 20:30 12/25/21 20:40 Temperature Pulse Rate 103 H 92 H Respiratory Rate 20 16 Blood Pressure 157/92 H 125/75 Pulse Oximetry 91 91 88 L 12/25/21 20:42 Temperature Pulse Rate Respiratory Rate Blood Pressure Pulse Oximetry 92 Medical Decision Making Lab Data Lab results reviewed: Yes I reviewed the patient's lab results. Result diagrams: 12/25/21 19:49 12/25/21 19:49 Labs: Lab Results 12/25/21 12/25/21 12/25/21 Range/Units 19:49 19:49 19:49 WBC 5.7 (4.5-11.0) X10^3/uL RBC 4.34 L (4.5-5.9) X10^6/uL Hgb 13.7 (13.5-17.5) g/dL Hct 41.2 (41-53) % MCV 95.0 (80-100) fL MCH 31.6 (26-34) PG MCHC 33.3 (30-36) % RDW 14.7 (11.6-14.8) % Plt Count 237 (150-400) X10^3/uL Neut % (Auto) 49.8 L (50-75) % Lymph % (Auto) 40.6 H (25-40) % [place] % (Auto) 7.4 (3-14) % Eos % (Auto) 1.6 L (2-4) % Baso % (Auto) 0.6 (0-2) % Neut # (Auto) 2800 (2400-1918) /uL Lymph # (Auto) 2300 (5708-3743) /uL [place] # (Auto) 400 (0-900) /uL Eos # (Auto) 100 (0-450) /uL Baso # (Auto) 0 (0-100) /uL PT (10.1-12.7) SECONDS INR (0.9-1.3) APTT (26.4-36.2) SECONDS Sodium 139 (137-145) mmol/L Potassium 3.7 (3.4-5.1) mmol/L Chloride 103 (98-107) mmol/L Carbon Dioxide 30 (22-32) mmol/L BUN 17 (9-20) mg/dL Creatinine 0.93 (0.66-1.25) mg/dL Estimated GFR > 60.0 (>60) mL/min BUN/Creatinine Ratio 18.3 (6-22) Glucose 116 H (80-110) mg/dL Lactate (0.7-2.1) mmol/L Calcium 8.9 (8.4-10.2) mg/dL Total Bilirubin 0.4 (0.2-1.3) mg/dL AST 33 (17-59) IU/L ALT 22 (<50) IU/L Alkaline Phosphatase 41 (38-126) U/L Total Creatine Kinase 63 (55-170) U/L CK-MB (CK-2) TNP CK-MB (CK-2) Rel Index TNP Troponin I < 0.012 (0.01-0.034) ng/mL Total Protein 6.9 (6.3-8.2) g/dL Albumin 3.9 (3.5-5.0) g/dL Globulin 3.0 (1.7-4.1) g/dL Albumin/Globulin Ratio 1.3 (1.0-2.8) Lipase 205 (23-300) U/L SARS-CoV-2 (PCR) (Negative) 12/25/21 12/25/21 12/25/21 Range/Units 19:49 19:49 19:52 WBC (4.5-11.0) X10^3/uL RBC (4.5-5.9) X10^6/uL Hgb (13.5-17.5) g/dL Hct (41-53) % MCV (80-100) fL MCH (26-34) PG MCHC (30-36) % RDW (11.6-14.8) % Plt Count (150-400) X10^3/uL Neut % (Auto) (50-75) % Lymph % (Auto) (25-40) % [place] % (Auto) (3-14) % Eos % (Auto) (2-4) % Baso % (Auto) (0-2) % Neut # (Auto) (6082-4866) /uL Lymph # (Auto) (8055-0641) /uL [place] # (Auto) (0-900) /uL Eos # (Auto) (0-450) /uL Baso # (Auto) (0-100) /uL PT 12.2 (10.1-12.7) SECONDS INR 1.1 (0.9-1.3) APTT 28 (26.4-36.2) SECONDS Sodium (137-145) mmol/L Potassium (3.4-5.1) mmol/L Chloride (98-107) mmol/L Carbon Dioxide (22-32) mmol/L BUN (9-20) mg/dL Creatinine (0.66-1.25) mg/dL Estimated GFR (>60) mL/min BUN/Creatinine Ratio (6-22) Glucose (80-110) mg/dL Lactate 2.0 (0.7-2.1) mmol/L Calcium (8.4-10.2) mg/dL Total Bilirubin (0.2-1.3) mg/dL AST (17-59) IU/L ALT (<50) IU/L Alkaline Phosphatase (38-126) U/L Total Creatine Kinase (55-170) U/L CK-MB (CK-2) CK-MB (CK-2) Rel Index Troponin I (0.01-0.034) ng/mL Total Protein (6.3-8.2) g/dL Albumin (3.5-5.0) g/dL Globulin (1.7-4.1) g/dL Albumin/Globulin Ratio (1.0-2.8) Lipase (23-300) U/L SARS-CoV-2 (PCR) Negative (Negative) Imaging Data Chest x-ray: Radiologist's Impression: [address] [address] XRay Report Signed Patient: Shai Kramer MR#: [id number] : 1940 Acct:[id number] Age/Sex: 81 / M Date of Service: 12/25/21 Loc: ED Accession Number: [id number] ?? Procedure: XR chest 1V Ordering Provider: Shai Hall D.O. PROCEDURE:? XR CHEST 1V ? INDICATIONS:? possible aspiration ? TECHNIQUE:? One view of the chest was acquired.? ? COMPARISON:? None.? Prior comparison examinations are incomplete. ? FINDINGS:? ? Surgical changes and devices:? None.? ? Lungs and pleura:? Lungs are clear.? No pleural effusions or pneumothorax.? ? Mediastinum:? Mediastinal contours appear normal.? Heart size is mildly increased.? ? Bones and chest wall:? No suspicious bony lesions.? Overlying soft tissues appear unremarkable.? There is a large hernia. ? IMPRESSION:? ? 1. No acute cardiopulmonary disease. 2. Large hiatal hernia. 3. Mild cardiomegaly.? ? ? Dictated by: Ania Berry M.D. on 12/25/2021 at 20:38 ? ? Approved by: Ania Berry M.D. on 12/25/2021 at 21:05? CT scan - chest: Radiologist's Impression: [place] [address] CT Scan Report Signed Patient: Shai Kramer MR#: [id number] : 1940 Acct:[id number] Age/Sex: 81 / M Date of Service: 12/25/21 Loc: [facility] 226-1 Accession Number: [id number] ?? Procedure: CT angio chest PE protocol Ordering Provider: Viral Cruz MD PROCEDURE:? CT ANGIO CHEST PE PROTOCOL ? INDICATIONS:? PE? ? TECHNIQUE:? After the administration of intravenous contrast, 2 mm thick sections acquired from the pulmonary apices to the posterior costophrenic angles.? 3-dimensional maximum intensity projection (MIP) coronal and sagittal reformats were then acquired through the thorax.? For radiation dose reduction, the following was used:? automated exposure control, adjustment of mA and/or kV according to patient size.? ? [facility].? [facility], CR, XR CHEST 1V, 12/25/2021, 22:18.? [facility], CT, CT ANGIO CHEST ABDOMEN PELVIS, 12/25/2021, 21:45. ? FINDINGS:? Image quality:? Excellent.? ? Pulmonary arteries:? Pulmonary arteries are normal in size, and demonstrate no intraluminal filling defects to suggest central pulmonary embolism.? ? Lungs and pleura:? Right upper, middle and lower lobe infiltrates consistent with pneumonia.? There is a 4 mm nodule in lingula (series 3, image 173).? Bibasilar atelectasis.? No pleural effusions or pneumothorax.? Central and peripheral airways are patent.? ? Mediastinum:? Heart size is normal, without pericardial effusion.? No mediastinal or hilar adenopathy.? Thoracic aorta is normal in caliber and enhancement.? Esophagus is normal in caliber.? There is a large hiatal hernia.? ? Bones and chest wall:? No suspicious bony lesions.? Ribs and thoracic spine appear intact throughout.? Thyroid gland is unremarkable.? No axillary or supraclavicular adenopathy.? ? Abdomen:? Visualized upper abdominal solid organs appear normal in the early arterial phase of enhancement.? ? IMPRESSION:? ? 1. No evidence for pulmonary embolism.? 2. Right side pneumonia. 3. Bibasilar atelectasis. 4. Large hiatal hernia. 5. A 4 mm nodule in lingula.? Please see enclosed follow-up recommendation. ? ? Fleischner Society criteria for SOLID lung nodule followup.? Nodule size (mm)Low-risk patientHigh-risk patient?4No follow-up neededFollow-up at 12 mo; if no change, no further follow-up>1-4Xhpqru-or CT at 12 mo; if no change, no further follow-up needed.Initial follow-up CT at 6-12 mo, then 18-24 mo if no change.? >6-8Initial follow-up CT at 6-12 mo, then 18-24 mo if no change. Initial follow-up CT at 3-6 mo, then 9-12 mo and 24 mo if no change.? >8Follow-up CT at 3, 9, 24 mo.? Or PET and/or biopsy.Same as for low-risk pts.? Fleischner Society criteria for SUB-SOLID lung nodule followup.? Solitary pure ground-glass nodules5 mm or lessNo followup needed.? >5 mm3 mo follow-up CT to confirm persistence.? Then annual CT for 3 years.? Part-solid nodules3 mo follow-up CT to confirm persistence.? If persistent with solid component <5 mm, annual CT for at least 3 years.? If solid component is 5 mm or more, biopsy or surgical resection.? Consider PET-CT for lesions > 10 mm.? Multiple sub-solid nodulesPure ground glass nodules [address] at 2 and 4 years.? Pure ground glass nodules >5 mm without dominant lesion.? [address] to confirm persistence, then annual followup CT for at least 3 years.? Dominant nodule(s) with part-solid or solid component.? [address] to confirm persistence.? If persistent, consider biopsy or surgical resection, rach if lesions have >5 mm solid component.? Dictated by: Ania Berry M.D. on 12/25/2021 at 22:54 ? ? Approved by: Ania Berry M.D. on 12/25/2021 at 23:00? post NG tube placement: Radiologist's Impression: [address] [address] XRay Report Signed Patient: Shai Kramer MR#: [id number] : 1940 Acct:[id number] Age/Sex: 81 / M Date of Service: 12/25/21 Loc: [place] [address]- Accession Number: [id number] ?? Procedure: XR chest 1V Ordering Provider: Shai Hall D.O. PROCEDURE:? XR CHEST 1V ? INDICATIONS:? ng tube placement ? TECHNIQUE:? One view of the chest was acquired.? ? COMPARISON:? [facility], CT, CT ANGIO CHEST ABDOMEN PELVIS, 12/25/2021, 21:45.? [facility], CT, CT ANGIO CHEST PE PROTOCOL, 12/25/2021, 21:45.? [facility], CR, XR CHEST 1V, 12/25/2021, 20:05. ? FINDINGS:? ? Surgical changes and devices:? None.? ? Lungs and pleura:? Infiltrates in right lung, new since the last exam, consistent with aspiration or pneumonia.? Bibasilar atelectasis.? No pleural effusions or pneumothorax.? ? Mediastinum:? Large hiatal hernia with intrathoracic stomach.? There is a nasogastric tube in the stomach.? Mediastinal contours appear normal.? Heart size is normal.? ? Bones and chest wall:? No suspicious bony lesions.? Overlying soft tissues appear unremarkable.? ? IMPRESSION:? ? 1. Infiltrate in right lung consistent with aspiration or pneumonia.? ? 2. Large hiatal hernia.? NG tube tip is in the intrathoracic stomach.? ? ? Dictated by: Ania Berry M.D. on 12/25/2021 at 23:01 ? ? Approved by: Ania Berry M.D. on 12/25/2021 at 23:03?? CTA chest/abd/pelvis : Radiologist's Impression: [place] [address] CT Scan Report Signed Patient: Shai Kramer MR#: [id number] : 1940 Acct:[id number] Age/Sex: 81 / M Date of Service: 12/25/21 Loc: ICU 226-1 Accession Number: [id number] ?? Procedure: CT angio chest abdomen pelvis Ordering Provider: Shai Hall D.O. PROCEDURE:? CT ANGIO CHEST ABDOMEN PELVIS ? INDICATIONS:? Abdominal pain, hypotension, ? TECHNIQUE:? Precontrast 5 mm thick sections acquired from the lung apices to the iliac crests.? After the administration of intravenous contrast, 2.5 mm thick sections again acquired from the lung apices to the iliac crests.? Maximum intensity projection (MIP) oblique sagittal and coronal reformats were then acquired.? For radiation dose reduction, the following was used:? automated exposure control.? ? COMPARISON:? None.? Prior examinations are incomplete in the PACS. ? FINDINGS:? Image quality:? Excellent.? ? AORTA:? Normal caliber.? No dissection.? Mild atherosclerotic calcification. ? CHEST:? Lungs and pleura:? Infiltrates in right lung consistent with pneumonia.? Bibasilar atelectasis.? There are multiple nodules in right lung a 4 mm nodule in lingula.? No pleural effusions or pneumothorax.? Central and peripheral airways are patent and normal in caliber.? ? Mediastinum:? Heart size is normal.? No pericardial effusion.? No mediastinal or hilar adenopathy by size criteria.? Central pulmonary arteries are normal in size.? Esophagus is normal in caliber.? There is a huge hiatal hernia with stomach mostly in the thorax.? ? Bones and chest wall:? No axillary adenopathy by size criteria.? Thyroid gland is normal. ?No suspicious bony lesions.? No vertebral body compression fractures.? ? ? ABDOMEN:? Vasculature:? Celiac trunk and mesenteric arteries are patent.? There is an anatomic variant with the common hepatic artery arising from aorta.? Renal arteries are also patent.? ? Solid organs:? Liver is normal in size and enhancement.? Gallbladder is normal.? Biliary system is non dilated.? Pancreas enhances normally.? Spleen is normal in size and enhancement.? No adrenal nodules.? Both kidneys are normal in size and enhancement, without hydronephrosis.? Tiny nonobstructive right renal calculi are noted.? ? Peritoneum and bowel:? No free fluid or air.? Bowel loops are normal in caliber and wall thickness.? Diverticulosis without diverticulitis. ? Nodes and vessels:? No retroperitoneal or mesenteric adenopathy by size criteria.? Inferior vena cava is normal in morphology.? ? Miscellaneous:? No ventral hernias.? ? ? PELVIS:? Genitourinary:? Bladder wall is mildly thickened and irregular anteriorly.? Prostate is enlarged. ? Miscellaneous:? No inguinal adenopathy.? Bilateral fat containing inguinal hernias are noted.? There are hydroceles, right greater than left.? No ventral hernias.? ? Bones:? No suspicious bony lesions.? No vertebral body compression fractures.? Degenerative changes are noted in the lower lumbar spine. ? ? IMPRESSION:? ? 1. No aortic aneurysm or dissection. 2. Infiltrates in right lung consistent with aspiration or pneumonia. 3. Bilateral lung nodules.? Recommend follow-up CT to ensure resolution after treatment of acute illness. 4. Huge hiatal hernia with intrathoracic stomach. 5. Diverticulosis without diverticulitis. 6. Enlarged prostate.? 7. Mild thickening and irregularity of urinary bladder.? If clinically indicated, cystoscopy may be helpful. ? ? ? Dictated by: Ania Berry M.D. on 12/25/2021 at 23:04 ? ? Approved by: Ania Berry M.D. on 12/25/2021 at 23:19?? ECG Data Attestation: I personally reviewed and interpreted this ECG as follows: Interpretation: Sinus rhythm Ventricular rate 92 First-degree AV block pain or able to 5 2 milliseconds Normal QRS Normal QTC Nonspecific ST T wave changes Reviewed EKG Sinus bradycardia Ventricular rate of 53 First-degree AV block the DE interval of to 3 6 milliseconds Normal QRS Normal QTC No ST T wave changes MDM Narrative Medical decision making narrative: Patient nauseous upon arrival. Complaining of abdominal discomfort but he states this is the same discomfort that he always gets when he ?eats too much ?I do have a suspicion that he has aspirated because he has been tachypneic and has coarse breath sounds and has oxygen saturations in the low 90/high 80s on room air. He has a known hiatal hernia. Will hold on antibiotics for now however secondary to his respiratory status will need admitted to the hospital. Discussed the case with Dr. Cruz with Internal Medicine who will admit the patient. Discussed the need for admission with the patient and his were at bedside. While the patient was in the emergency department being seen by internal medicine he had what appeared to be a vagal episode however it lasted several minutes which would not be consistent with this. He was bradycardic and hypotensive and diaphoretic. He was given fluids. Was placed in Trendelenburg. His blood pressure and heart rate improved. He never lost consciousness during this time. He denied shortness of breath and chest pain during the time. Is abdomen is soft. Because of this change and the question of a true vasovagal episode is CT scan of his chest abdomen pelvis was obtained. He denied any recent black colored stools or dark-colored stools. CT scan of the chest shows a large hiatal hernia but no signs of pulmonary embolism. There is no signs of aortic pathology. Patient does have a large hiatal hernia that seems to be pressing on both the left ventricle and the aorta and the vena cava. After discussion with the hospitalist the concern is is that the patient is having nonobstructive pathology where he is either getting decreased venous return or decreased cardiac output given the large hernia. An NG-tube was placed. This did seem to improve his symptoms and is no longer hypotensive. Discussed case with general surgery who agrees to evaluate the patient in the hospital. Critical Care Time Critical Care Time Critical Care Time: Yes Total Critical Care Time: 35 Attestation: The high probability of a clinically significant, sudden or life threatening deterioration of the cardiovascular system(s) required my full and direct attention, intervention and personal management. The aggregate critical care time was [35] minutes. This time is in addition to time spent performing reported procedures but includes the following: [x] Data Review and interpretation [x] Patient assessment and monitoring of vital signs [x] Documentation [x] Medication orders and management Discharge Plan Departure Patient Disposition: Admitted as Observation Clinical Impression: Syncope, Aspiration pneumonitis, Hypoxia Admit Date/Time: 12/25/21 21:12 Admit Provider: Viral Cruz
--- NOTE | 2021-12-25 19:48 | DI.RAD.S_ITS ---
PROCEDURE: XR CHEST 1V INDICATIONS: possible aspiration TECHNIQUE: One view of the chest was acquired. COMPARISON: None. Prior comparison examinations are incomplete. FINDINGS: Surgical changes and devices: None. Lungs and pleura: Lungs are clear. No pleural effusions or pneumothorax. Mediastinum: Mediastinal contours appear normal. Heart size is mildly increased. Bones and chest wall: No suspicious bony lesions. Overlying soft tissues appear unremarkable. There is a large hernia. IMPRESSION: 1. No acute cardiopulmonary disease. 2. Large hiatal hernia. 3. Mild cardiomegaly. Dictated by: Ania Berry M.D. on 12/25/2021 at 20:38 Approved by: Ania Berry M.D. on 12/25/2021 at 21:05
[2021-12-25] MEDS: ONDANSETRON 4 MG/2 ML INJ IV (19:55)
[2021-12-25] MEDS: SODIUM CHLORIDE 0.9% 1,000 ML 125 ML IV (19:55)
[2021-12-25 20:10] LABS: Add Manual Diff / Slide Review NO; Basophils Absolute Auto 0 /uL (0-100); Basophils Percent Auto 0.6 % (0-2); Eosinophils Absolute Auto 100 /uL (0-450); Eosinophils Percent Auto 1.6 % (2-4); Hematocrit 41.2 % (41-53); Hemoglobin 13.7 g/dL (13.5-17.5); Lymphocytes Absolute Auto 2300 /uL (1100-4500); Lymphocytes Percent Auto 40.6 % (25-40); Mean Corpuscular HGB Conc 33.3 % (30-36); Mean Corpuscular Hemoglobin 31.6 PG (26-34); Monocytes Absolute Auto 400 /uL (0-900); Monocytes Percent Auto 7.4 % (3-14); Neutrophils Absolute Auto 2800 /uL (1500-7000); Neutrophils Percent Auto 49.8 % (50-75); Platelet Count 237 X10^3/uL (150-400); Red Blood Cell Count 4.34 X10^6/uL (4.5-5.9); Red Cell Distribution Width 14.7 % (11.6-14.8); White Blood Cell Count 5.7 X10^3/uL (4.5-11.0)
[2021-12-25 20:15] LABS: COVID19 -Nasal RAPID Negative (Negative)
[2021-12-25 20:23] LABS: Alanine Aminotransferase 22 IU/L (<50); Albumin 3.9 g/dL (3.5-5.0); Albumin Globulin Ratio 1.3 (1.0-2.8); Alkaline Phosphatase 41 U/L (38-126); Aspartate Aminotransferase 33 IU/L (17-59); BUN Creatinine Ratio 18.3 (6-22); Bilirubin Total 0.4 mg/dL (0.2-1.3); Blood Urea Nitrogen 17 mg/dL (9-20); Calcium 8.9 mg/dL (8.4-10.2); Carbon Dioxide 30 mmol/L (22-32); Chloride 103 mmol/L (98-107); Estimated Glomerular Filt Rate > 60.0 mL/min (>60); Glucose 116 mg/dL (80-110); HEMOLYSIS < 15 (0-50); Potassium 3.7 mmol/L (3.4-5.1); Sodium 139 mmol/L (137-145); Total Protein 6.9 g/dL (6.3-8.2)
[2021-12-25 20:24] LABS: Creatine Kinase 63 U/L (55-170); Lipase 205 U/L (23-300)
[2021-12-25 20:35] LABS: Troponin I < 0.012 ng/mL (0.01-0.034)
--- NOTE | 2021-12-25 21:10 | PC.NURSE ---
Pt called RN in room, states he continues to feel bloated. Pt was repositioned to sit up more comfortably prior, pt now requests to lay flat. Educated pt on aspiration precautions and contraindication for laying flat, pt verbalized understanding, remains above 30 degrees.
--- NOTE | 2021-12-25 21:19 | DI.CT.S_ITS ---
PROCEDURE: CT ANGIO CHEST PE PROTOCOL INDICATIONS: PE? TECHNIQUE: After the administration of intravenous contrast, 2 mm thick sections acquired from the pulmonary apices to the posterior costophrenic angles. 3-dimensional maximum intensity projection (MIP) coronal and sagittal reformats were then acquired through the thorax. For radiation dose reduction, the following was used: automated exposure control, adjustment of mA and/or kV according to patient size. COMPARISON: [facility], CR, XR CHEST 1V, 12/25/2021, 20:05. [facility], CR, XR CHEST 1V, 12/25/2021, 22:18. [facility], CT, CT ANGIO CHEST ABDOMEN PELVIS, 12/25/2021, 21:45. FINDINGS: Image quality: Excellent. Pulmonary arteries: Pulmonary arteries are normal in size, and demonstrate no intraluminal filling defects to suggest central pulmonary embolism. Lungs and pleura: Right upper, middle and lower lobe infiltrates consistent with pneumonia. There is a 4 mm nodule in lingula (series 3, image 173). Bibasilar atelectasis. No pleural effusions or pneumothorax. Central and peripheral airways are patent. Mediastinum: Heart size is normal, without pericardial effusion. No mediastinal or hilar adenopathy. Thoracic aorta is normal in caliber and enhancement. Esophagus is normal in caliber. There is a large hiatal hernia. Bones and chest wall: No suspicious bony lesions. Ribs and thoracic spine appear intact throughout. Thyroid gland is unremarkable. No axillary or supraclavicular adenopathy. Abdomen: Visualized upper abdominal solid organs appear normal in the early arterial phase of enhancement. IMPRESSION: 1. No evidence for pulmonary embolism. 2. Right side pneumonia. 3. Bibasilar atelectasis. 4. Large hiatal hernia. 5. A 4 mm nodule in lingula. Please see enclosed follow-up recommendation. Fleischner Society criteria for SOLID lung nodule followup. Nodule size (mm)Low-risk patientHigh-risk patient?4No follow-up neededFollow-up at 12 mo; if no change, no further follow-up>[id number] CT at 12 mo; if no change, no further follow-up needed.Initial follow-up CT at 6-12 mo, then 18-24 mo if no change. >6-8Initial follow-up CT at 6-12 mo, then 18-24 mo if no change. Initial follow-up CT at 3-6 mo, then 9-12 mo and 24 mo if no change. >8Follow-up CT at 3, 9, 24 mo. Or PET and/or biopsy.Same as for low-risk pts. Fleischner Society criteria for SUB-SOLID lung nodule followup. Solitary pure ground-glass nodules5 mm or lessNo followup needed. >5 mm3 mo follow-up CT to confirm persistence. Then annual CT for 3 years. Part-solid nodules3 mo follow-up CT to confirm persistence. If persistent with solid component <5 mm, annual CT for at least 3 years. If solid component is 5 mm or more, biopsy or surgical resection. Consider PET-CT for lesions > 10 mm. Multiple sub-solid nodulesPure ground glass nodules [address] at 2 and 4 years. Pure ground glass nodules >5 mm without dominant lesion. [address] to confirm persistence, then annual followup CT for at least 3 years. Dominant nodule(s) with part-solid or solid component. [address] to confirm persistence. If persistent, consider biopsy or surgical resection, rach if lesions have >5 mm solid component. Dictated by: Ania Berry M.D. on 12/25/2021 at 22:54 Approved by: Ania Berry M.D. on 12/25/2021 at 23:00
--- NOTE | 2021-12-25 21:29 | DI.CT.S_ITS ---
PROCEDURE: CT ANGIO CHEST ABDOMEN PELVIS INDICATIONS: Abdominal pain, hypotension, TECHNIQUE: Precontrast 5 mm thick sections acquired from the lung apices to the iliac crests. After the administration of intravenous contrast, 2.5 mm thick sections again acquired from the lung apices to the iliac crests. Maximum intensity projection (MIP) oblique sagittal and coronal reformats were then acquired. For radiation dose reduction, the following was used: automated exposure control. COMPARISON: None. Prior examinations are incomplete in the PACS. FINDINGS: Image quality: Excellent. AORTA: Normal caliber. No dissection. Mild atherosclerotic calcification. CHEST: Lungs and pleura: Infiltrates in right lung consistent with pneumonia. Bibasilar atelectasis. There are multiple nodules in right lung a 4 mm nodule in lingula. No pleural effusions or pneumothorax. Central and peripheral airways are patent and normal in caliber. Mediastinum: Heart size is normal. No pericardial effusion. No mediastinal or hilar adenopathy by size criteria. Central pulmonary arteries are normal in size. Esophagus is normal in caliber. There is a huge hiatal hernia with stomach mostly in the thorax. Bones and chest wall: No axillary adenopathy by size criteria. Thyroid gland is normal. No suspicious bony lesions. No vertebral body compression fractures. ABDOMEN: Vasculature: Celiac trunk and mesenteric arteries are patent. There is an anatomic variant with the common hepatic artery arising from aorta. Renal arteries are also patent. Solid organs: Liver is normal in size and enhancement. Gallbladder is normal. Biliary system is non dilated. Pancreas enhances normally. Spleen is normal in size and enhancement. No adrenal nodules. Both kidneys are normal in size and enhancement, without hydronephrosis. Tiny nonobstructive right renal calculi are noted. Peritoneum and bowel: No free fluid or air. Bowel loops are normal in caliber and wall thickness. Diverticulosis without diverticulitis. Nodes and vessels: No retroperitoneal or mesenteric adenopathy by size criteria. Inferior vena cava is normal in morphology. Miscellaneous: No ventral hernias. PELVIS: Genitourinary: Bladder wall is mildly thickened and irregular anteriorly. Prostate is enlarged. Miscellaneous: No inguinal adenopathy. Bilateral fat containing inguinal hernias are noted. There are hydroceles, right greater than left. No ventral hernias. Bones: No suspicious bony lesions. No vertebral body compression fractures. Degenerative changes are noted in the lower lumbar spine. IMPRESSION: 1. No aortic aneurysm or dissection. 2. Infiltrates in right lung consistent with aspiration or pneumonia. 3. Bilateral lung nodules. Recommend follow-up CT to ensure resolution after treatment of acute illness. 4. Huge hiatal hernia with intrathoracic stomach. 5. Diverticulosis without diverticulitis. 6. Enlarged prostate. 7. Mild thickening and irregularity of urinary bladder. If clinically indicated, cystoscopy may be helpful. Dictated by: Ania Berry M.D. on 12/25/2021 at 23:04 Approved by: Ania Berry M.D. on 12/25/2021 at 23:19
[2021-12-25 21:46] LABS: INR 1.1 (0.9-1.3); Prothrombin Time 12.2 SECONDS (10.1-12.7)
[2021-12-25 21:48] LABS: PTT Partial Thromboplastin Tim 28 SECONDS (26.4-36.2)
--- NOTE | 2021-12-25 22:17 | DI.RAD.S_ITS ---
PROCEDURE: XR CHEST 1V INDICATIONS: ng tube placement TECHNIQUE: One view of the chest was acquired. COMPARISON: [facility], CT, CT ANGIO CHEST ABDOMEN PELVIS, 12/25/2021, 21:45. [facility], CT, CT ANGIO CHEST PE PROTOCOL, 12/25/2021, 21:45. [facility], CR, XR CHEST 1V, 12/25/2021, 20:05. FINDINGS: Surgical changes and devices: None. Lungs and pleura: Infiltrates in right lung, new since the last exam, consistent with aspiration or pneumonia. Bibasilar atelectasis. No pleural effusions or pneumothorax. Mediastinum: Large hiatal hernia with intrathoracic stomach. There is a nasogastric tube in the stomach. Mediastinal contours appear normal. Heart size is normal. Bones and chest wall: No suspicious bony lesions. Overlying soft tissues appear unremarkable. IMPRESSION: 1. Infiltrate in right lung consistent with aspiration or pneumonia. 2. Large hiatal hernia. NG tube tip is in the intrathoracic stomach. Dictated by: Ania Berry M.D. on 12/25/2021 at 23:01 Approved by: Ania Berry M.D. on 12/25/2021 at 23:03
[2021-12-25] MEDS: PANTOPRAZOLE 40 MG VIAL IV (22:34)
[2021-12-25] MEDS: SODIUM CHLORIDE 0.9% 1,000 ML 1000 ML IV (22:35)
[2021-12-25] MEDS: FUROSEMIDE 40 MG/4 ML VIAL IV (22:36)
--- NOTE | 2021-12-25 22:44 | PC.NURSE ---
Pt heart rate noted to drop to 50's on telemetry, Vy ABURTO and this RN entered room to assess pt, pt found to be diaphoretic, pale, and cold to touch. Pt reported abdominal pain. Vitals run and blood pressure recorded low, pt placed in trendelenburg, notified and at bedside shortly after and orders received. Pt saturations dropped to 86% and ultimately NRB 15L placed on pt. Pt transferred to CT scan with x2 RN, monitor, and oxygen. Pt on continued monitoring.
--- NOTE | 2021-12-25 23:01 | PM.HP.1 ---
History of Present Illness History of Present Illness Date Patient Seen: 12/25/21 Time Patient Seen: 22:00 Chief complaint: Syncope Narrative: Mr. Kramer is an 81M with PMH HTN, HL and multiple syncopal episodes who presents with syncope. He has a large known hiatal hernia. He states that for years he has had issues when he eats a significant amount of food he will get abdominal pain and then pass out and vomit. He has had cardiac monitoring showing NSVT, a low risk stress test in 2019. Today he ate a significant amount of food at a [employer] party. He felt bloated and then passed out and vomited. He does not recall aspirating. His says he has episodes like this very frequently. He had no chest pain. He did not vomit blood. In the ED workup was done, vitals were initially unremarkable. While being evaluated he was noted to have worsening abdominal pain, he became diaphoretic, bradycardic to 40s-50s. He became hypotensive to the systolic 60s. He became hypoxemic to the 80s, was placed on nasal canula up to 6L and still hypoxemic in the 80s so was placed on nonrebreather. IV fluid did improve his blood pressure. Labs were notable WBC 5.7, plts 237, BUN 17, creatinine 0.93. Lactate 2.0. Initial chest xray showed no acute process but did show large hiatal hernia. There was concern at this point that he was having possible hemodynamic compromise related to large hiatal hernia causing decreased cardiac output and respiratory compromise. Stat CT was done which shoed no PE, no aortic dissection, showed right sided lung infiltrates and large hiatal hernia. NG tube was placed with suction of stomach contents. He was feeling much improved. Surgery was consulted who agreed with patient being NPO and with NG tube and they will evaluate for need for possible hernia repair. He was given a dose of lasix after fluid resuscitation due to his hypoxemia and concern for possible pulmonary edema. He was admitted for further treatment. Patient History Medical History GERD (gastroesophageal reflux disease) Hearing loss Hyperlipidemia Hypertension Mumps (~1945) Syncope Vertigo (~2017) Surgical History Anesthesia History of hernia surgery (~1971) History of knee surgery (~1969) Family & Social History Family History Mother Brain aneurysm Social History: household members spouse,family,children Safety & Behavioral: Feels Safe in Current Yes Environment Been Physically Hurt or No Threatened By a Person Tobacco & Substance use: Smoking Status Former smoker alcohol intake frequency 0-2 drinks per day Substance Use Type does not use Meds Home Medications and Allergies Home Medications Medication Instructions Recorded Confirmed Type aspirin 81 mg chewable tablet 81 mg PO DAILY 11/29/18 02/22/21 History Vitamin C 1 tab PO DAILY 03/10/19 02/22/21 History coQ10 (liposomal ubiquinol) 1 dose PO DAILY 03/10/19 02/22/21 History multivitamin 1 tab PO DAILY 03/10/19 02/22/21 History atorvastatin 20 mg tablet 20 mg PO BEDTIME #90 tab 02/22/21 02/22/21 Rx lisinopril 20 mg tablet 20 mg PO DAILY #90 tab 06/07/21 Rx Allergies Allergy/AdvReac Type Severity Reaction Status Date / Time No Known Drug Allergies Allergy Unverified 12/25/21 19:49 Review of Systems Review of Systems Narrative: 14 systems reviewed and negative aside from what is noted in HPI Exam Vital Signs (past 8 hours): - 12/25/21 19:45 12/25/21 19:46 12/25/21 19:47 Temperature 98 F Pulse Rate 93 H 91 H 92 H Respiratory Rate 18 Blood Pressure 154/90 H 154/90 H Pulse Oximetry 92 92 91 12/25/21 20:00 12/25/21 20:30 12/25/21 20:40 Temperature Pulse Rate 103 H 92 H Respiratory Rate 20 16 Blood Pressure 157/92 H 125/75 Pulse Oximetry 91 91 88 L 12/25/21 20:42 12/25/21 21:40 12/25/21 21:42 Temperature Pulse Rate 57 L 56 L Respiratory Rate 33 H 30 H Blood Pressure 79/53 L Pulse Oximetry 92 100 100 12/25/21 21:44 12/25/21 21:46 12/25/21 21:48 Temperature Pulse Rate 57 L 54 L 64 Respiratory Rate 16 22 Blood Pressure 82/53 L 95/57 L 113/59 L Pulse Oximetry 99 100 98 12/25/21 21:50 12/25/21 21:52 12/25/21 21:54 Temperature Pulse Rate 68 71 79 Respiratory Rate 63 H 78 H 68 H Blood Pressure 121/82 122/69 116/64 Pulse Oximetry 80 L 59 L 81 L 12/25/21 21:56 12/25/21 21:58 12/25/21 22:00 Temperature Pulse Rate 76 78 77 Respiratory Rate 33 H 26 H 63 H Blood Pressure 146/82 H 144/80 H 142/79 H Pulse Oximetry 62 L 12/25/21 22:02 12/25/21 22:04 12/25/21 22:06 Temperature Pulse Rate 80 82 83 Respiratory Rate 107 H 22 Blood Pressure 147/80 H 145/79 H 147/82 H Pulse Oximetry 65 L 80 L 98 12/25/21 22:08 12/25/21 22:10 12/25/21 22:12 Temperature Pulse Rate 84 82 83 Respiratory Rate 32 H 36 H 30 H Blood Pressure 144/83 H 152/86 H 125/84 Pulse Oximetry 99 94 84 L 12/25/21 22:15 12/25/21 22:20 12/25/21 22:26 Temperature Pulse Rate 92 H 89 92 H Respiratory Rate 34 H 27 H 28 H Blood Pressure 190/92 H 182/92 H 186/103 H Pulse Oximetry 76 L 93 95 12/25/21 22:30 12/25/21 22:31 12/25/21 22:35 Temperature Pulse Rate 92 H 90 98 H Respiratory Rate 23 19 28 H Blood Pressure 168/74 H 167/74 H Pulse Oximetry 95 94 95 12/25/21 22:40 12/25/21 22:45 12/25/21 22:50 Temperature Pulse Rate 103 H 105 H 108 H Respiratory Rate 26 H 29 H 27 H Blood Pressure 156/81 H 153/79 H 150/84 H Pulse Oximetry 95 94 96 Oxygen Delivery Method Non -Rebreather Oxygen Flow Rate 15 Narrative Exam Narrative: GEN: ill appearing HEENT: moist mucuos membranes NECK: trachea midline, no JVD CV: bradycardic, no murmurs PULM: decreased breath sounds on left, coarse breath sounds and crackles on right ABD: soft, generalized tenderness, no murmurs EXT: warm and well perfused with no edema NEURO: awake, alert, no focal deficits PSYCH: pleasant, cooperative Objective Labs Result Diagrams: 12/25/21 19:49 12/25/21 19:49 Labs: Laboratory Results - last 24 hr 12/25/21 12/25/21 12/25/21 19:49 19:49 19:49 WBC 5.7 RBC 4.34 L Hgb 13.7 Hct 41.2 MCV 95.0 MCH 31.6 MCHC 33.3 RDW 14.7 Plt Count 237 Neut % (Auto) 49.8 L Lymph % (Auto) 40.6 H [place] % (Auto) 7.4 Eos % (Auto) 1.6 L Baso % (Auto) 0.6 Neut # (Auto) 2800 Lymph # (Auto) 2300 [place] # (Auto) 400 Eos # (Auto) 100 Baso # (Auto) 0 PT INR APTT Sodium 139 Potassium 3.7 Chloride 103 Carbon Dioxide 30 BUN 17 Creatinine 0.93 Estimated GFR > 60.0 BUN/Creatinine Ratio 18.3 Glucose 116 H Lactate Calcium 8.9 Total Bilirubin 0.4 AST 33 ALT 22 Alkaline Phosphatase 41 Total Creatine Kinase 63 CK-MB (CK-2) TNP CK-MB (CK-2) Rel Index TNP Troponin I < 0.012 Total Protein 6.9 Albumin 3.9 Globulin 3.0 Albumin/Globulin Ratio 1.3 Lipase 205 SARS-CoV-2 (PCR) Blood Type Antibody Screen 12/25/21 12/25/21 12/25/21 19:49 19:49 19:52 WBC RBC Hgb Hct MCV MCH MCHC RDW Plt Count Neut % (Auto) Lymph % (Auto) [place] % (Auto) Eos % (Auto) Baso % (Auto) Neut # (Auto) Lymph # (Auto) [place] # (Auto) Eos # (Auto) Baso # (Auto) PT 12.2 INR 1.1 APTT 28 Sodium Potassium Chloride Carbon Dioxide BUN Creatinine Estimated GFR BUN/Creatinine Ratio Glucose Lactate 2.0 Calcium Total Bilirubin AST ALT Alkaline Phosphatase Total Creatine Kinase CK-MB (CK-2) CK-MB (CK-2) Rel Index Troponin I Total Protein Albumin Globulin Albumin/Globulin Ratio Lipase SARS-CoV-2 (PCR) Negative Blood Type Antibody Screen 12/25/21 21:30 WBC RBC Hgb Hct MCV MCH MCHC RDW Plt Count Neut % (Auto) Lymph % (Auto) [place] % (Auto) Eos % (Auto) Baso % (Auto) Neut # (Auto) Lymph # (Auto) [place] # (Auto) Eos # (Auto) Baso # (Auto) PT INR APTT Sodium Potassium Chloride Carbon Dioxide BUN Creatinine Estimated GFR BUN/Creatinine Ratio Glucose Lactate Calcium Total Bilirubin AST ALT Alkaline Phosphatase Total Creatine Kinase CK-MB (CK-2) CK-MB (CK-2) Rel Index Troponin I Total Protein Albumin Globulin Albumin/Globulin Ratio Lipase SARS-CoV-2 (PCR) Blood Type A Positive Antibody Screen Negative Assessment & Plan Assessment & Plan narrative: Mr. Kramer came in to the hospital with syncope after eating a large meal found to be diaphoretic, bradycardic, hypotensive and hypoxemic likely from obstructive effects of a large hiatal hernia. 1. Severe hypotension, Acute hypoxemic respiratory failure, acute syncope -likely etiology is due to large hiatal hernia -presume that full stomach contents are causing cardiac compression and decreased venous return to heart -improved blood pressure with IV fluids and concurrent NG tube placement with suction of stomach contents -keep patient NPO -general surgery consulted -follow up imaging after resuscitation shows concern for aspiration pneumonia from vomiting and possible acute pulmonary edema likely due to volume resuscitation -ordered for blood cultures and sputum cultures -ordered for zosyn for pneumonia -did get lasix in ED, will monitor closely to see if patient will need further diuresis 2. Large hiatal hernia with nausea and vomiting -keep NPO -ordered for protonix, zofran -surgery consult as above 3. Hypertension -hold anti-hypertensives for now given patient initially hypotensive 4. Lung nodules -follow up as outpatient with PCP CODE: Full Proxy: Steffany Kramer, I have utilized all available resources to reconcile the patient's home medications. Time Spent With Patient Critical Care time: I spent a total of [] minutes of critical care time on this patient's care today; this time is exclusive of procedural time. Quality MIPS - Admit I confirm the patient?s Advance Care Plan is present, Code status is documented, Surrogate decision maker is in patient?s record [If Yes, STOP here]: Yes
--- NOTE | 2021-12-25 23:30 | PC.NURSE ---
Blood Pressure manually entered in to EMR at 2124, vital signs did not capture from PDM. PDM switched from core monitor in room to transfer monitor when pt was transferred to CT scan, vitals that were not saved to EMR prior to PDM switch no longer available. Next set of vitals after 2124 represent the transfer to CT scan. Vitals were recording Q2 minutes during pt period of distress. This RN, Maria R Klein RN, and Vy RN at bedside with both Dr. Schuster and Dr. Hall, live vitals were being monitored.
[2021-12-26] VITALS (53 sets, daily range): BP systolic 101–140; BP diastolic 56–71; PULSE 68–128; RESP 17–34; TEMP 36.4–37.4; O2SAT 89–98
[2021-12-26] MEDS: PIPERACILLIN/TAZO 4.5 GM in SODIUM CHLORIDE 0.9% 100 ML 200 ML IV (01:29)
--- NOTE | 2021-12-26 02:20 | P.TELICUCN_ITS ---
History of Present Illness Consult details Chief complaint: Syncope :: This patient was seen via real time interactive two-way audiovisual telecommunication. Narrative: 81 y.o. w/ known history of hiatal hernia who went to ED with abdominal discomfort after having a large amount of food at a [employer] constitution party. In the ED, his discomfort worsened and he became hypotensive and bradycardic. A NGT was placed with aspiration of stomach contents and he improved. C hest/abd/pelvic CT scans demonstrated that the hiatal hernia was impinging on the LV, aorta and vena cava. There was also a suggestion of aspiration; Zosyn was started. He was admitted to ICU status due to the hypotensive episode in the ED. [facility] Medical History GERD (gastroesophageal reflux disease) Hearing loss Hyperlipidemia Hypertension Mumps (~1945) Syncope Vertigo (~2016) Surgical History Anesthesia History of hernia surgery (~1971) History of knee surgery (~1969) Family History Mother Brain aneurysm Social History household members: spouse, family and children Smoking Status: Former smoker alcohol intake: current Current Medications Current Medications Medications: Home Medications aspirin 81 mg chewable tablet 81 mg PO DAILY 11/29/18 [History Confirmed 02/22/21] Vitamin C 1 tab PO DAILY 03/10/19 [History Confirmed 02/22/21] coQ10 (liposomal ubiquinol) 1 dose PO DAILY 03/10/19 [History Confirmed 02/22/21] multivitamin 1 tab PO DAILY 03/10/19 [History Confirmed 02/22/21] atorvastatin 20 mg tablet 20 mg PO BEDTIME #90 tab 02/22/21 [Rx Confirmed 02/22/21] lisinopril 20 mg tablet 20 mg PO DAILY #90 tab 06/07/21 [Rx] Exam Vital Signs (past 8 hours): - 12/25/21 19:45 12/25/21 19:46 12/25/21 19:47 Temperature 98 F Pulse Rate 93 H 91 H 92 H Respiratory Rate 18 Blood Pressure 154/90 H 154/90 H Pulse Oximetry 92 92 91 12/25/21 20:00 12/25/21 20:30 12/25/21 20:40 Temperature Pulse Rate 103 H 92 H Respiratory Rate 20 16 Blood Pressure 157/92 H 125/75 Pulse Oximetry 91 91 88 L 12/25/21 20:42 12/25/21 21:25 12/25/21 21:40 Temperature Pulse Rate 49 L 57 L Respiratory Rate 30 H 33 H Blood Pressure 60/40 L Pulse Oximetry 92 89 L 100 12/25/21 21:42 12/25/21 21:44 12/25/21 21:46 Temperature Pulse Rate 56 L 57 L 54 L Respiratory Rate 30 H 16 Blood Pressure 79/53 L 82/53 L 95/57 L Pulse Oximetry 100 99 100 12/25/21 21:48 12/25/21 21:50 12/25/21 21:52 Temperature Pulse Rate 64 68 71 Respiratory Rate 22 63 H 78 H Blood Pressure 113/59 L 121/82 122/69 Pulse Oximetry 98 80 L 59 L 12/25/21 21:54 12/25/21 21:56 12/25/21 21:58 Temperature Pulse Rate 79 76 78 Respiratory Rate 68 H 33 H 26 H Blood Pressure 116/64 146/82 H 144/80 H Pulse Oximetry 81 L 62 L 12/25/21 22:00 12/25/21 22:02 12/25/21 22:04 Temperature Pulse Rate 77 80 82 Respiratory Rate 63 H 107 H Blood Pressure 142/79 H 147/80 H 145/79 H Pulse Oximetry 65 L 80 L 12/25/21 22:06 12/25/21 22:08 12/25/21 22:10 Temperature Pulse Rate 83 84 82 Respiratory Rate 22 32 H 36 H Blood Pressure 147/82 H 144/83 H 152/86 H Pulse Oximetry 98 99 94 12/25/21 22:12 12/25/21 22:15 12/25/21 22:20 Temperature Pulse Rate 83 92 H 89 Respiratory Rate 30 H 34 H 27 H Blood Pressure 125/84 190/92 H 182/92 H Pulse Oximetry 84 L 76 L 93 12/25/21 22:26 12/25/21 22:30 12/25/21 22:31 Temperature Pulse Rate 92 H 92 H 90 Respiratory Rate 28 H 23 19 Blood Pressure 186/103 H 168/74 H Pulse Oximetry 95 95 94 12/25/21 22:35 12/25/21 22:40 12/25/21 22:45 Temperature Pulse Rate 98 H 103 H 105 H Respiratory Rate 28 H 26 H 29 H Blood Pressure 167/74 H 156/81 H 153/79 H Pulse Oximetry 95 95 94 12/25/21 22:50 12/25/21 22:55 12/25/21 23:00 Temperature Pulse Rate 108 H 110 H 116 H Respiratory Rate 27 H 29 H 29 H Blood Pressure 150/84 H 151/92 H Pulse Oximetry 96 96 97 12/25/21 23:18 Temperature 97.0 F L Pulse Rate 111 H Respiratory Rate 24 Blood Pressure 118/62 Pulse Oximetry 91 Oxygen Delivery Method Non -Rebreather Oxygen Flow Rate 3 Const General: other (elderly male in no acute distress) Objective Labs Result Diagrams: 12/25/21 19:49 12/25/21 19:49 Labs: Laboratory Results - last 24 hr 12/25/21 12/25/21 12/25/21 19:49 19:49 19:49 WBC 5.7 RBC 4.34 L Hgb 13.7 Hct 41.2 MCV 95.0 MCH 31.6 MCHC 33.3 RDW 14.7 Plt Count 237 Neut % (Auto) 49.8 L Lymph % (Auto) 40.6 H [place] % (Auto) 7.4 Eos % (Auto) 1.6 L Baso % (Auto) 0.6 Neut # (Auto) 2800 Lymph # (Auto) 2300 [place] # (Auto) 400 Eos # (Auto) 100 Baso # (Auto) 0 PT INR APTT Sodium 139 Potassium 3.7 Chloride 103 Carbon Dioxide 30 BUN 17 Creatinine 0.93 Estimated GFR > 60.0 BUN/Creatinine Ratio 18.3 Glucose 116 H Lactate Calcium 8.9 Total Bilirubin 0.4 AST 33 ALT 22 Alkaline Phosphatase 41 Total Creatine Kinase 63 CK-MB (CK-2) TNP CK-MB (CK-2) Rel Index TNP Troponin I < 0.012 Total Protein 6.9 Albumin 3.9 Globulin 3.0 Albumin/Globulin Ratio 1.3 Lipase 205 Nasal Screen MRSA (PCR) SARS-CoV-2 (PCR) Blood Type Antibody Screen 02/13/22 02/13/22 02/13/22 19:49 19:49 19:52 WBC RBC Hgb Hct MCV MCH MCHC RDW Plt Count Neut % (Auto) Lymph % (Auto) [place] % (Auto) Eos % (Auto) Baso % (Auto) Neut # (Auto) Lymph # (Auto) [place] # (Auto) Eos # (Auto) Baso # (Auto) PT 12.2 INR 1.1 APTT 28 Sodium Potassium Chloride Carbon Dioxide BUN Creatinine Estimated GFR BUN/Creatinine Ratio Glucose Lactate 2.0 Calcium Total Bilirubin AST ALT Alkaline Phosphatase Total Creatine Kinase CK-MB (CK-2) CK-MB (CK-2) Rel Index Troponin I Total Protein Albumin Globulin Albumin/Globulin Ratio Lipase Nasal Screen MRSA (PCR) SARS-CoV-2 (PCR) Negative Blood Type Antibody Screen 12/25/21 12/25/21 21:30 23:15 WBC RBC Hgb Hct MCV MCH MCHC RDW Plt Count Neut % (Auto) Lymph % (Auto) [place] % (Auto) Eos % (Auto) Baso % (Auto) Neut # (Auto) Lymph # (Auto) [place] # (Auto) Eos # (Auto) Baso # (Auto) PT INR APTT Sodium Potassium Chloride Carbon Dioxide BUN Creatinine Estimated GFR BUN/Creatinine Ratio Glucose Lactate Calcium Total Bilirubin AST ALT Alkaline Phosphatase Total Creatine Kinase CK-MB (CK-2) CK-MB (CK-2) Rel Index Troponin I Total Protein Albumin Globulin Albumin/Globulin Ratio Lipase Nasal Screen MRSA (PCR) Negative for mrsa SARS-CoV-2 (PCR) Blood Type A Positive Antibody Screen Negative Assessment & Plan Assessment and plan (1) Aspiration pneumonitis: Status: Acute Plan: -Continue Zosyn (2) Syncope: Problem details: Suspect vasovagal etiology but mechanical obstruction due to the hiatal hernia is certainly a possibility Status: Acute Plan: -Continue telemetry (3) Hiatal hernia: Status: Acute Plan: -Surgical consult (4) Goals of care, counseling/discussion: Status: Acute Plan: -Given advanced age, recommend that this occur if it has not yet been done -Can be downgraded in AM if remainder of shift is uneventful; defer to bedside team
[2021-12-26] MEDS: PIPERACILLIN/TAZO 3.375 GM in SODIUM CHLORIDE 0.9% 100 ML 25 ML IV ×3 (05:25→20:44)
[2021-12-26 06:23] LABS: Add Manual Diff / Slide Review NO; Basophils Absolute Auto 0 /uL (0-100); Eosinophils Absolute Auto 0 /uL (0-450); Hematocrit 40.1 % (41-53); Hemoglobin 13.8 g/dL (13.5-17.5); Lymphocytes Absolute Auto 300 /uL (1100-4500); Mean Corpuscular HGB Conc 34.4 % (30-36); Mean Corpuscular Volume 93.2 fL (80-100); Monocytes Absolute Auto 400 /uL (0-900); Monocytes Percent Auto 4.9 % (3-14); Neutrophils Absolute Auto 8100 /uL (1500-7000); Neutrophils Percent Auto 92.1 % (50-75); Platelet Count 175 X10^3/uL (150-400); Red Cell Distribution Width 14.1 % (11.6-14.8); White Blood Cell Count 8.8 X10^3/uL (4.5-11.0)
[2021-12-26 06:35] LABS: BUN Creatinine Ratio 16.7 (6-22); Blood Urea Nitrogen 18 mg/dL (9-20); Calcium 8.5 mg/dL (8.4-10.2); Carbon Dioxide 30 mmol/L (22-32); Chloride 104 mmol/L (98-107); Estimated Glomerular Filt Rate > 60.0 mL/min (>60); Glucose 141 mg/dL (80-110); HEMOLYSIS < 15 (0-50); Magnesium 1.7 mg/dL (1.6-2.3); Potassium 3.8 mmol/L (3.4-5.1); Sodium 139 mmol/L (137-145)
--- NOTE | 2021-12-26 06:42 | DI.RAD.S_ITS ---
PROCEDURE: XR CHEST 1V INDICATIONS: sob, pna, pulm edema? TECHNIQUE: One view of the chest was acquired. COMPARISON: [facility], CR, XR CHEST 1V, 12/25/2021, 22:18. FINDINGS: Surgical changes and devices: NG tube projects across the GE junction with distal tip and side port projecting over the proximal stomach. Lungs and pleura: Increased right perihilar opacification slightly progressed compared to December 25, 2021. No pleural effusions or pneumothorax. Mediastinum: Mediastinal contours appear normal. Heart size is normal. Bones and chest wall: No suspicious bony lesions. Overlying soft tissues appear unremarkable. IMPRESSION: Left perihilar opacity suspicious for pneumonia. Dictated by: Heather Maharaj MD, PhD on 12/26/2021 at 7:53 Approved by: Heather Maharaj MD, PhD on 12/26/2021 at 7:55
--- NOTE | 2021-12-26 08:12 | PC.NURSE ---
Am shift Update about overnight care and POC for today with daughter Ashely, she would like to be called when Surgeon meets with Patient. Will set up speakerphone call with family.
--- NOTE | 2021-12-26 14:29 | CM.DANOTE ---
Patient is an 81 yo male who was admitted on 12/25/21 for Syncope. Pt has MCR and [employer] for insurance and his PCP is Dr. Zev Deshpande. EMR was reviewed. Per MD, pt with hx of hiatal hernia and complications and was admitted due to hernia complications and syncope. Pt currently NPO with NGT. Surgeon was consulted and attempting hospital transfer for higher level of care as pts medical needs are complicated. Per RN, pt quite uncomfortable with NGT and pt and family having lots of questions and concerns and are hopeful to talk to Surgeon to get some questions answered. Pt is active, indp at baseline and per recent admission he has assist available from spouse and adult children as needed and his Dtr Ashely is quite involved in his care and supportive. Pt was able to d/c home with family assist after last admission. Plan: SW to follow closely to determine if pt accepted for Hospital Transfer for higher level of care needs and further d/c planning discussion if pt remains here. CYNTHIA Proctor Discharge Planning/Care Management CM Discharge Assessment Start: 12/26/21 14:22 Freq: Status: Active Protocol: Document 12/26/21 14:22 BF (Rec: 12/26/21 14:29 BF [id number]) Discharge Planning Assessment Assigned District Sales Manager CYNTHIA Haro DPOA/Assigned Designee Name spouse and Dtr Advance Directives? Yes: ADV DIR Advance Directives on File Yes History Provided By Patient,Family Member,Medical Record Has Patient been admitted in last 30 No days? Prior Living Arrangements House Household Members spouse,family,children Type of transporation used prior to Drives own vehicle admit Independent with ADL's Yes Is patient alert and oriented? Yes Needs Assistance With Home Chores / Shopping Caregiver for Another No Barriers to Discharge No Discharge Plan Transfer to Higher Level of Care Transportation Arrangement Awaiting accepting facility for transfer to higher level of care Referrals Initiated None needed Review Status In Process Please Provide Date Initial DC 12/26/21 Assessment Was Performed Next Review Type Continued Stay Review
--- NOTE | 2021-12-26 14:52 | PC.NURSE ---
Addendum entered by Aparna Oneill R.N. 12/26/21 18:55: IVF order obtained, ns @ 75 mls/hr. One time dose of Ativan to help patient relax and tolerate NG tube. LIS. Oral care being provided. Pt is able to use urinal standing at bedside. Denies pain, no flatus. BT hypoactive. Using light for needs, BA active at present. Original Note: Am shift Pt remains NPO and is not pleased with NG tube remaining in. Explained rationale of patient keeping NG tube in, Pt is continually displeased with this response. in and same update provided, confusion about POC, reassured that Dr Fitch will be in to answer questions later today. 1130-Call into Dr Fitch, in OR, update provided that Pt may be transferring to [facility], working on accepting surgeon. Update to and daughter and Patient, reiterated no further update until Dr Fitch available. Unable to update about POC because unaware of goal with transfer. 1330-Call back to Dr Fitch, rec'd update transfer to [facility] for less invasive procedure, Dr Rodriguez program management intern will be able to do the procedure, likely not until tomorrow. Dr Fitch has great shannon in Dr rodriguez doing this procedure with the best outcome for patient. Dr Fitch wont be up to see Pt at this time, continue to work on transfer to [facility]. 1500-Pt will need to stay here at [facility] overnight, plan to transfer to [facility] tomorrow for Dr Rodriguez to accept. Update to daughter and and patient.
--- NOTE | 2021-12-26 15:08 | P.PN_ITS ---
Subjective Subjective Date Patient Seen: 12/26/21 Time Patient Seen: 08:00 Interval history: Today he feels improved. The NG tube is bothering him. However his abdominal pain is gone. He has no shortness of breath. He has had no further hypotension, diaphoresis Exam Vital Signs (past 8 hours): - 12/26/21 07:17 12/26/21 09:09 12/26/21 13:11 Temperature 99.3 F 99 F Pulse Rate 85 87 84 Respiratory Rate 21 24 26 H Blood Pressure 123/68 116/64 Pulse Oximetry 98 96 93 Oxygen Delivery Method Non -Rebreather Oxygen Flow Rate 0 Narrative Exam Narrative: GEN: no acute distress HEENT: moist mucuos membranes NECK: trachea midline, no JVD CV: regular rate and rhythm, no murmurs PULM: decreased breath sounds on left, coarse breath sounds and crackles on right ABD: soft, generalized tenderness, no murmurs EXT: warm and well perfused with no edema NEURO: awake, alert, no focal deficits PSYCH: pleasant, cooperative Objective Labs Result Diagrams: 12/26/21 05:55 12/26/21 05:55 Labs: Laboratory Results - last 24 hr 12/25/21 12/25/21 12/25/21 19:49 19:49 19:49 WBC 5.7 RBC 4.34 L Hgb 13.7 Hct 41.2 MCV 95.0 MCH 31.6 MCHC 33.3 RDW 14.7 Plt Count 237 Neut % (Auto) 49.8 L Lymph % (Auto) 40.6 H [place] % (Auto) 7.4 Eos % (Auto) 1.6 L Baso % (Auto) 0.6 Neut # (Auto) 2800 Lymph # (Auto) 2300 [place] # (Auto) 400 Eos # (Auto) 100 Baso # (Auto) 0 PT INR APTT Sodium 139 Potassium 3.7 Chloride 103 Carbon Dioxide 30 BUN 17 Creatinine 0.93 Estimated GFR > 60.0 BUN/Creatinine Ratio 18.3 Glucose 116 H Lactate Calcium 8.9 Magnesium Total Bilirubin 0.4 AST 33 ALT 22 Alkaline Phosphatase 41 Total Creatine Kinase 63 CK-MB (CK-2) TNP CK-MB (CK-2) Rel Index TNP Troponin I < 0.012 Total Protein 6.9 Albumin 3.9 Globulin 3.0 Albumin/Globulin Ratio 1.3 Lipase 205 Nasal Screen MRSA (PCR) SARS-CoV-2 (PCR) Blood Type Antibody Screen 12/25/21 12/25/21 12/25/21 19:49 19:49 19:52 WBC RBC Hgb Hct MCV MCH MCHC RDW Plt Count Neut % (Auto) Lymph % (Auto) [place] % (Auto) Eos % (Auto) Baso % (Auto) Neut # (Auto) Lymph # (Auto) [place] # (Auto) Eos # (Auto) Baso # (Auto) PT 12.2 INR 1.1 APTT 28 Sodium Potassium Chloride Carbon Dioxide BUN Creatinine Estimated GFR BUN/Creatinine Ratio Glucose Lactate 2.0 Calcium Magnesium Total Bilirubin AST ALT Alkaline Phosphatase Total Creatine Kinase CK-MB (CK-2) CK-MB (CK-2) Rel Index Troponin I Total Protein Albumin Globulin Albumin/Globulin Ratio Lipase Nasal Screen MRSA (PCR) SARS-CoV-2 (PCR) Negative Blood Type Antibody Screen 12/25/21 12/25/21 12/26/21 21:30 23:15 05:55 WBC 8.8 D RBC 4.30 L Hgb 13.8 Hct 40.1 L MCV 93.2 MCH 32.0 MCHC 34.4 RDW 14.1 Plt Count 175 Neut % (Auto) 92.1 H D Lymph % (Auto) 3.0 L D [place] % (Auto) 4.9 Eos % (Auto) 0.0 L Baso % (Auto) 0.0 Neut # (Auto) 8100 H Lymph # (Auto) 300 L [place] # (Auto) 400 Eos # (Auto) 0 Baso # (Auto) 0 PT INR APTT Sodium Potassium Chloride Carbon Dioxide BUN Creatinine Estimated GFR BUN/Creatinine Ratio Glucose Lactate Calcium Magnesium Total Bilirubin AST ALT Alkaline Phosphatase Total Creatine Kinase CK-MB (CK-2) CK-MB (CK-2) Rel Index Troponin I Total Protein Albumin Globulin Albumin/Globulin Ratio Lipase Nasal Screen MRSA (PCR) Negative for mrsa SARS-CoV-2 (PCR) Blood Type A Positive Antibody Screen Negative 12/26/21 05:55 WBC RBC Hgb Hct MCV MCH MCHC RDW Plt Count Neut % (Auto) Lymph % (Auto) [place] % (Auto) Eos % (Auto) Baso % (Auto) Neut # (Auto) Lymph # (Auto) [place] # (Auto) Eos # (Auto) Baso # (Auto) PT INR APTT Sodium 139 Potassium 3.8 Chloride 104 Carbon Dioxide 30 BUN 18 Creatinine 1.08 Estimated GFR > 60.0 BUN/Creatinine Ratio 16.7 Glucose 141 H Lactate Calcium 8.5 Magnesium 1.7 Total Bilirubin AST ALT Alkaline Phosphatase Total Creatine Kinase CK-MB (CK-2) CK-MB (CK-2) Rel Index Troponin I Total Protein Albumin Globulin Albumin/Globulin Ratio Lipase Nasal Screen MRSA (PCR) SARS-CoV-2 (PCR) Blood Type Antibody Screen [facility] Medical History GERD (gastroesophageal reflux disease) Hearing loss Hyperlipidemia Hypertension Mumps (~1945) Syncope Vertigo (~2017) Surgical History Anesthesia History of hernia surgery (~1971) History of knee surgery (~1969) Family History Mother Brain aneurysm Social History household members: spouse, family and children Smoking Status: Former smoker alcohol intake: current Assessment & Plan Assessment & Plan narrative: Mr. Karmer came in to the hospital with syncope after eating a large meal found to be diaphoretic, bradycardic, hypotensive and hypoxemic likely from obstructive effects of a large hiatal hernia. 1. Severe hypotension, Acute hypoxemic respiratory failure, acute syncope -likely etiology is due to large hiatal hernia -presume that full stomach contents are causing cardiac compression and decreased venous return to heart -improved blood pressure with IV fluids and concurrent NG tube placement with suction of stomach contents -keep patient NPO -general surgery consulted, recommend transfer to [facility] to be evaluate by dr. rodriguez -follow up imaging after resuscitation shows concern for aspiration pneumonia from vomiting and possible acute pulmonary edema likely due to volume resuscitation -ordered for blood cultures and sputum cultures -ordered for zosyn for pneumonia 2. Large hiatal hernia with nausea and vomiting -keep NPO -ordered for protonix, zofran -surgery consult as above 3. Hypertension -hold anti-hypertensives for now given patient initially hypotensive 4. Lung nodules -follow up as outpatient with PCP CODE: Full Proxy: Steffany Kramer, I have utilized all available resources to reconcile the patient's home medications. Time Spent With Patient Critical Care time: I spent a total of [] minutes of critical care time on this patient's care today; this time is exclusive of procedural time. Quality VTE Deep Vein Thrombosis/Pulmonary Embolism Present on Admission: No
[2021-12-26] MEDS: LORazepam 2 MG/ML INJ 0.5 MG IV (16:54)
[2021-12-26] MEDS: LACTATED RINGERS 1,000 ML 75 ML IV (16:55)
[2021-12-26] MEDS: SODIUM CHLORIDE 0.9% 1,000 ML 75 ML IV (19:00)
[2021-12-27] VITALS: BP 130/66; PULSE 76; PULSE 77; RESP 18; RESP 19; TEMP 36.6; TEMP 37.4; O2SAT 96; O2SAT 97
[2021-12-27 04:00] VITALS: BP 124/65; PULSE 74; RESP 19; TEMP 37.1; O2SAT 95
[2021-12-27] MEDS: PIPERACILLIN/TAZO 3.375 GM in SODIUM CHLORIDE 0.9% 100 ML 25 ML IV ×2 (04:00→12:07)
[2021-12-27] MEDS: SODIUM CHLORIDE 0.9% 1,000 ML 75 ML IV (05:45)
[2021-12-27 06:33] LABS: Hematocrit 34.2 % (41-53); Hemoglobin 11.6 g/dL (13.5-17.5); Mean Corpuscular HGB Conc 33.8 % (30-36); Mean Corpuscular Hemoglobin 31.9 PG (26-34); Mean Corpuscular Volume 94.3 fL (80-100); Platelet Count 157 X10^3/uL (150-400); Red Blood Cell Count 3.63 X10^6/uL (4.5-5.9); Red Cell Distribution Width 14.3 % (11.6-14.8); White Blood Cell Count 11.4 X10^3/uL (4.5-11.0)
[2021-12-27 06:38] LABS: BUN Creatinine Ratio 19.6 (6-22); Blood Urea Nitrogen 20 mg/dL (9-20); Calcium 8.2 mg/dL (8.4-10.2); Carbon Dioxide 31 mmol/L (22-32); Chloride 109 mmol/L (98-107); Estimated Glomerular Filt Rate > 60.0 mL/min (>60); Glucose 112 mg/dL (80-110); HEMOLYSIS < 15 (0-50); Potassium 3.6 mmol/L (3.4-5.1); Sodium 141 mmol/L (137-145)
--- NOTE | 2021-12-27 07:53 | DI.RAD.S_ITS ---
PROCEDURE: XR CHEST 1V INDICATIONS: Check placement of NG tube. TECHNIQUE: One view of the chest was acquired. COMPARISON: [facility], CT, CT ANGIO CHEST ABDOMEN PELVIS, 12/25/2021, 21:45. [facility], CR, XR CHEST 1V, 12/26/2021, 6:53. FINDINGS: Surgical changes and devices: Enteric tube is seen projecting above and below the left hemidiaphragm with tip projecting over the midline towards the right above the level of the diaphragm. This is likely located within a large hiatal hernia as seen on prior CT exam. Lungs and pleura: Right greater than left pulmonary opacities do not appear significantly changed. No pleural effusions or pneumothorax. Mediastinum: Mediastinal contours appear normal. Heart size is normal. Bones and chest wall: No suspicious bony lesions. Overlying soft tissues appear unremarkable. IMPRESSION: Nasogastric tube is seen within a large hiatal hernia. Stable pulmonary infiltrates. Dictated by: Bryon Sepulveda M.D. on 12/27/2021 at 8:21 Approved by: Bryon Sepulveda M.D. on 12/27/2021 at 8:29
[2021-12-27 08:00] VITALS: BP 127/75; PULSE 90; RESP 28; TEMP 36.7; O2SAT 92
[2021-12-27 08:06] VITALS: O2SAT 95
--- NOTE | 2021-12-27 11:22 | PC.NURSE ---
Addendum entered by Kb Marcial R.N. 12/27/21 18:12: Pt accepted to [facility]. Picked up by [facility] transport. NG capped, IV HL'd Report to [facility] crew. Daughter Ashely called to update on transfer. Called report to [facility]. Original Note: Pt rouses to voice and touch. Pt offers no overt c/o though is not enamored with the NG tube. On assessment NG was noted to have advanced out enough to have it replaced. Hospitalist and Surgeon ( Dr. Fitch advised) Ng replaced per protocal and xray to confirm placement done. Pt restful at present. Pt's daughter into visit, Pt's called. Awaiting word from [facility] re: transfer.
[2021-12-27 12:00] VITALS: BP 127/70; PULSE 69; RESP 20; TEMP 36.8; O2SAT 94
--- NOTE | 2021-12-27 15:45 | P.CONS_ITS ---
History of Present Illness Consult details Date Patient Seen: 12/27/21 Time Patient Seen: 13:15 Chief complaint: Syncope Reason for consult: large hiatal hernia Requesting provider: Viral Cruz Narrative: Has known large hiatal hernia with recurrent reflux, aspiration pneumonia w minimal symptoms. Was watching Super Bowl and eating when he passed out. Has had previous episodes associated with eating. Presented hemodynamically unstable due to cardiac irritability felt to be related to large H/H. Meds Home Medications and Allergies Home Medications Medication Instructions Recorded Confirmed Type aspirin 81 mg chewable tablet 81 mg PO DAILY 11/29/18 12/27/21 History Vitamin C 1 tab PO DAILY 03/10/19 02/22/21 History coQ10 (liposomal ubiquinol) 1 dose PO DAILY 03/10/19 02/22/21 History multivitamin 1 tab PO DAILY 03/10/19 02/22/21 History atorvastatin 20 mg tablet 20 mg PO BEDTIME #90 tab 02/22/21 12/27/21 Rx lisinopril 20 mg tablet 20 mg PO DAILY #90 tab 06/07/21 Rx Allergies Allergy/AdvReac Type Severity Reaction Status Date / Time No Known Drug Allergies Allergy Unverified 12/25/21 19:49 Exam Vital Signs (past 8 hours): - 12/27/21 08:00 12/27/21 08:06 12/27/21 12:00 Temperature 98.1 F 98.2 F Pulse Rate 90 69 Respiratory Rate 28 H 20 Blood Pressure 127/75 127/70 Pulse Oximetry 92 95 94 Oxygen Delivery Method Nasal Cannula Oxygen Flow Rate 3 Narrative Exam Narrative: CT scan shows large hiatal hernia with majority of stomach in the chest. Scattered pulmonary infiltrates. Const General: cooperative, healthy appearing, comfortable and well developed Orientation: alert and oriented x3 HENMT Head: normocephalic and atraumatic Eyes General: appearance normal, both eyes and all related structures Neck Neck: trachea midline Chest Chest: normal inspection of the chest Resp Effort & Inspection: normal respiratory effort and able to speak in complete sentences Cardio Rate: regular rate Rhythm: regular rhythm GI Palpation: soft Skin General: atrophy and dry skin Lesions: lesion noted (right face, no infection) Neuro Cognition: normal cognition Speech: speech normal Extrem General: full ROM Psych Appearance: grossly normal Affect: normal affect Judgment: judgment good Objective Labs Result Diagrams: 12/27/21 06:08 12/27/21 06:08 Labs: Laboratory Results - last 24 hr 12/27/21 12/27/21 06:08 06:08 WBC 11.4 H RBC 3.63 L Hgb 11.6 L Hct 34.2 L MCV 94.3 MCH 31.9 MCHC 33.8 RDW 14.3 Plt Count 157 Sodium 141 Potassium 3.6 Chloride 109 H Carbon Dioxide 31 BUN 20 Creatinine 1.02 Estimated GFR > 60.0 BUN/Creatinine Ratio 19.6 Glucose 112 H Calcium 8.2 L [facility] Medical History GERD (gastroesophageal reflux disease) Hearing loss Hyperlipidemia Hypertension Mumps (~1945) Syncope Vertigo (~2017) Surgical History Anesthesia History of hernia surgery (~1971) History of knee surgery (~1969) Family History Mother Brain aneurysm Social History household members: spouse, family and children Tobacco & Substance Use Smoking Status: Former smoker alcohol intake: current Assessment & Plan Assessment & Plan narrative: Large hiatal hernia contribution to aspiration pneumonitis and very likely cardiac irritability presenting as syncope and cardiac arrythmias. Plan: discussed with foregut surgeon Cecy Epstein MD at [facility] and transfer is indicated for further work up and possible repair. Awaiting for available bed. Dr. Chun Olson agrees to accept. Time Spent With Patient Critical Care time: I spent a total of [] minutes of critical care time on this patient's care today; this time is exclusive of procedural time.
--- NOTE | 2021-12-27 16:54 | PM.PN.1 ---
Subjective Subjective Interval history: Patient denies any recurrence of his CP. He reports overall improvement of his symptoms. He endorses some scratchy throat sensation that he attributes to the NG tube. Exam Vital Signs (past 8 hours): - 12/27/21 12:00 Temperature 98.2 F Pulse Rate 69 Respiratory Rate 20 Blood Pressure 127/70 Pulse Oximetry 94 Oxygen Delivery Method Nasal Cannula Oxygen Flow Rate 3 Const Other: Laying in bed comfortably upon my entering the room, in no apparent, acute distress HENMT Other: NG tube securely in place Eyes Other: No scleral icterus appreciated Resp Other: Lungs clear to auscultation bilaterally Cardio Other: RRR, S1 and S2 heart sounds normal, with no extra heart sounds or murmurs appreciated GI Other: Soft, non-distended, non-tender, bowel sounds present Skin Other: No grossly abnormal skin lesions appreciated Extrem Other: Palpable and equally steady radial and dorsalis pedis pulses bilaterally Objective Labs Result Diagrams: 12/27/21 06:08 12/27/21 06:08 Labs: Laboratory Results - last 24 hr 12/27/21 12/27/21 06:08 06:08 WBC 11.4 H RBC 3.63 L Hgb 11.6 L Hct 34.2 L MCV 94.3 MCH 31.9 MCHC 33.8 RDW 14.3 Plt Count 157 Sodium 141 Potassium 3.6 Chloride 109 H Carbon Dioxide 31 BUN 20 Creatinine 1.02 Estimated GFR > 60.0 BUN/Creatinine Ratio 19.6 Glucose 112 H Calcium 8.2 L PFSH Medical History GERD (gastroesophageal reflux disease) Hearing loss Hyperlipidemia Hypertension Mumps (~1945) Syncope Vertigo (~2017) Surgical History Anesthesia History of hernia surgery (~1972) History of knee surgery (~1970) Family History Mother Brain aneurysm Social History household members: spouse, family and children Smoking Status: Former smoker alcohol intake: current Assessment & Plan Assessment & Plan narrative: Mr. Kramer came in to the hospital with syncope after eating a large meal found to be diaphoretic, bradycardic, hypotensive and hypoxemic likely from obstructive effects of a large hiatal hernia. 1. Severe hypotension, Acute hypoxemic respiratory failure, acute syncope -likely etiology is due to large hiatal hernia -presume that full stomach contents are causing cardiac compression and decreased venous return to heart -improved blood pressure with IV fluids and concurrent NG tube placement with suction of stomach contents -keep patient NPO -general surgery consulted, recommend transfer to [facility] to be evaluate by dr. rodriguez -follow up imaging after resuscitation shows concern for aspiration pneumonia from vomiting and possible acute pulmonary edema likely due to volume resuscitation -ordered for blood cultures and sputum cultures -ordered for zosyn for pneumonia 2. Large hiatal hernia with nausea and vomiting -keep NPO -ordered for protonix, zofran -surgery consult as above 3. Hypertension -hold anti-hypertensives for now given patient initially hypotensive 4. Lung nodules -follow up as outpatient with PCP CODE: Full Proxy: Steffany Kramer, I have utilized all available resources to reconcile the patient's home medications. Time Spent With Patient Critical Care time: I spent a total of [] minutes of critical care time on this patient's care today; this time is exclusive of procedural time. Quality VTE Deep Vein Thrombosis/Pulmonary Embolism Present on Admission: No MIPS - Admit I confirm the patient?s Advance Care Plan is present, Code status is documented, Surrogate decision maker is in patient?s record [If Yes, STOP here]: Yes
--- NOTE | 2021-12-27 17:38 | PM.DS.1 ---
History of Present Illness History of Present Illness Chief complaint: Syncope Narrative: Mr. Kramer is an 81M with PMH HTN, HL and multiple syncopal episodes who presents with syncope. He has a large known hiatal hernia. He states that for years he has had issues when he eats a significant amount of food he will get abdominal pain and then pass out and vomit. He has had cardiac monitoring showing NSVT, a low risk stress test in 2019. Today he ate a significant amount of food at a [employer]. He felt bloated and then passed out and vomited. He does not recall aspirating. His says he has episodes like this very frequently. He had no chest pain. He did not vomit blood. In the ED workup was done, vitals were initially unremarkable. While being evaluated he was noted to have worsening abdominal pain, he became diaphoretic, bradycardic to 40s-50s. He became hypotensive to the systolic 60s. He became hypoxemic to the 80s, was placed on nasal canula up to 6L and still hypoxemic in the 80s so was placed on nonrebreather. IV fluid did improve his blood pressure. Labs were notable WBC 5.7, plts 237, BUN 17, creatinine 0.93. Lactate 2.0. Initial chest xray showed no acute process but did show large hiatal hernia. There was concern at this point that he was having possible hemodynamic compromise related to large hiatal hernia causing decreased cardiac output and respiratory compromise. Stat CT was done which shoed no PE, no aortic dissection, showed right sided lung infiltrates and large hiatal hernia. NG tube was placed with suction of stomach contents. He was feeling much improved. Surgery was consulted who agreed with patient being NPO and with NG tube and they will evaluate for need for possible hernia repair. He was given a dose of lasix after fluid resuscitation due to his hypoxemia and concern for possible pulmonary edema. He was admitted for further treatment. Discharge Providers Provider Date of admission: 12/25/21 21:12 Discharge Date: 12/27/21 Primary care physician: Zev Deshpande MD Consults: 12/25/21 22:14 Consult to General Surgery Routine Comment: Consulting Provider: Jamie Busby Reason for consultation: Hiatal hernia Has provider been notified: Yes 12/25/21 23:18 Consult to Tele-line patrolman Routine Comment: Consulting Provider: [employer] Reason for consultation: [employer] Discharge provider: Mando Sotelo MD Summary Hospital Course Discharge Diagnosis: Mr. Kramer came in to the hospital with syncope after eating a large meal found to be diaphoretic, bradycardic, hypotensive and hypoxemic likely from obstructive effects of a large hiatal hernia. 1. Severe hypotension, Acute hypoxemic respiratory failure, acute syncope -likely etiology is due to large hiatal hernia -presume that full stomach contents are causing cardiac compression and decreased venous return to heart -improved blood pressure with IV fluids and concurrent NG tube placement with suction of stomach contents -general surgery consulted, recommend transfer to [facility] to be evaluate by Dr. Epstein 2. Concern for aspiration pneumonia -follow up imaging after resuscitation shows concern for aspiration pneumonia from vomiting and possible acute pulmonary edema likely due to volume resuscitation -IV Zosyn on-board 3. Large hiatal hernia with nausea and vomiting -NG tube in place -ordered for protonix, zofran -surgery consult as above 4. Hypertension -hold anti-hypertensives for now given patient initially hypotensive 5. Lung nodules -follow up as outpatient with PCP Exam Vital Signs (past 8 hours): - 12/27/21 12:00 Temperature 98.2 F Pulse Rate 69 Respiratory Rate 20 Blood Pressure 127/70 Pulse Oximetry 94 Oxygen Delivery Method Nasal Cannula Oxygen Flow Rate 3 Narrative Exam Narrative: Const Other: Laying in bed comfortably upon my entering the room, in no apparent, acute distress HENMT Other: NG tube securely in place Eyes Other: No scleral icterus appreciated Resp Other: Lungs clear to auscultation bilaterally Cardio Other: RRR, S1 and S2 heart sounds normal, with no extra heart sounds or murmurs appreciated GI Other: Soft, non-distended, non-tender, bowel sounds present Skin Other: No grossly abnormal skin lesions appreciated Extrem Other: Palpable and equally steady radial and dorsalis pedis pulses bilaterally Objective Labs Result Diagrams: 12/27/21 06:08 12/27/21 06:08 Labs: Laboratory Results - last 24 hr 12/27/21 12/27/21 06:08 06:08 WBC 11.4 H RBC 3.63 L Hgb 11.6 L Hct 34.2 L MCV 94.3 MCH 31.9 MCHC 33.8 RDW 14.3 Plt Count 157 Sodium 141 Potassium 3.6 Chloride 109 H Carbon Dioxide 31 BUN 20 Creatinine 1.02 Estimated GFR > 60.0 BUN/Creatinine Ratio 19.6 Glucose 112 H Calcium 8.2 L [facility] Medical History GERD (gastroesophageal reflux disease) Hearing loss Hyperlipidemia Hypertension Mumps (~1945) Syncope Vertigo (~2017) Surgical History Anesthesia History of hernia surgery (~1971) History of knee surgery (~1970) Family History Mother Brain aneurysm Social History household members: spouse, family and children Smoking Status: Former smoker alcohol intake: current Discharge Assessment & Plan Assessment and Plan Assessment: Mr. Kramer came in to the hospital with syncope after eating a large meal found to be diaphoretic, bradycardic, hypotensive and hypoxemic likely from obstructive effects of a large hiatal hernia. 1. Severe hypotension, Acute hypoxemic respiratory failure, acute syncope -likely etiology is due to large hiatal hernia -presume that full stomach contents are causing cardiac compression and decreased venous return to heart -improved blood pressure with IV fluids and concurrent NG tube placement with suction of stomach contents -general surgery consulted, recommend transfer to [facility] to be evaluate by Dr. Epstein 2. Concern for aspiration pneumonia -follow up imaging after resuscitation shows concern for aspiration pneumonia from vomiting and possible acute pulmonary edema likely due to volume resuscitation -IV Zosyn on-board 3. Large hiatal hernia with nausea and vomiting -NG tube in place -ordered for protonix, zofran -surgery consult as above 4. Hypertension -hold anti-hypertensives for now given patient initially hypotensive 5. Lung nodules -follow up as outpatient with PCP Discharge Plan Discharge Plan Patient Disposition: Released, Other Provider Discharge Comment: Patient is to be transferred to [facility] for specialty surgical care with Dr. Epstein regarding the patient's severe hiatal hernia. Discharge orders & Medications Discharge Orders: Discharge (Order); Ordered 12/27/21 Ordered By: Mando Sotelo Prescriptions: No Action lisinopril 20 mg tablet 20 mg PO DAILY Qty: 90 2RF atorvastatin 20 mg tablet 20 mg PO BEDTIME Qty: 90 3RF multivitamin Tablet,Chewable 1 tab PO DAILY 0RF Label Comments: adult gummy Vitamin C 1 tab PO DAILY 0RF coQ10 (liposomal ubiquinol) 1 dose PO DAILY 0RF aspirin 81 mg Tablet,Chewable 81 mg PO DAILY 0RF Follow up/Referrals: Zev Deshpande MD [Primary Care Provider] - Visit Report/Discharge Packet Instructions: Hiatal Hernia Discharge Data Primary Care Provider: Zev Deshpande Quality VTE Deep Vein Thrombosis/Pulmonary Embolism Present on Admission: No
== END 2021-12-27 18:05 | disposition short-term general hospital (02) | DRG 189 ==
LOC: ED 20:02 → AC 21:48 → ICU 12-26 07:43 → AC 12-26 09:28
PROVIDERS: Admitting Provider Internal Medicine; Emergency Provider Emergency Medicine; PCP Student in an Organized Health Care Education/Training Program; Visit Provider Internal Medicine
DX: J96.01 Acute respiratory failure with hypoxia (principal); J69.0 Pneumonitis due to inhalation of food and vomit; J81.0 Acute pulmonary edema; I95.9 Hypotension, unspecified; R55 Syncope and collapse; K44.9 Diaphragmatic hernia without obstruction or gangrene; R11.2 Nausea with vomiting, unspecified; R00.1 Bradycardia, unspecified; Z20.822 Contact with and (suspected) exposure to COVID-19; Z87.891 Personal history of nicotine dependence
CPT/HCPCS: 36415; 71045; 71275; 74174; 80048; 80053; 82550; 83605; 83690; 83735; 84484; 85025; 85027; 85610; 85730; 86850; 86900; 86901; 87040; 87070; 87205; 87635; 87797; 93005; 93010; 94762; 96361; 96374; 96375; 99232; 99285; 99291; C9803; C9113; J1940; J2060; J2405; J2543; Q9967

== ENCOUNTER → 2022-01-30 10:07 | Outpatient (CLI) | payer MEDICARE, SELFPAY ==
[2022-01-13 12:48] VITALS: BMI 26.6
[2022-01-30 14:44] LABS: COVID-19 CEPHEID PCR (VTM/NP) Negative (Negative)
== END ==
PROVIDERS: PCP Student in an Organized Health Care Education/Training Program; Visit Provider Nurse Practitioner Family
DX: Z20.822 Contact with and (suspected) exposure to COVID-19 (principal)
CPT/HCPCS: C9803; U0003; U0005

== ENCOUNTER → 2022-02-06 10:34 | Outpatient (CLI) | payer MEDICARE, SELFPAY ==
[2022-01-13 12:48] VITALS: BMI 26.6
--- NOTE | 2022-02-06 | DI.RAD.S_ITS ---
PROCEDURE: FL BARIUM SWALLOW INDICATIONS: Diaphragmatic hernia without obstruction or gangrene COMPARISON: [facility], CT, CT ANGIO CHEST ABDOMEN PELVIS, 12/25/2021, 21:45. FINDINGS: Function: There is normal esophageal peristalsis. No elicited gastroesophageal reflux. There is normal transit of a calibrated barium tablet through the esophagus into the stomach. Morphology: Single contrast views show no esophageal strictures, extrinsic mass effects, or diverticula. There is a large hiatal hernia which contains most of the stomach. Herniated stomach is rotated along the long axis with greater curvature projecting dorsal and superior. Limited images of the stomach demonstrate normal appearance. IMPRESSION: Large hiatal hernia. Dictated by: Heather Maharaj MD, PhD on 02/06/2022 at 12:20 Approved by: Heather Maharaj MD, PhD on 02/06/2022 at 12:24
== END ==
PROVIDERS: PCP Student in an Organized Health Care Education/Training Program; Referring Provider Surgery; Visit Provider Surgery
DX: K44.9 Diaphragmatic hernia without obstruction or gangrene (principal)
CPT/HCPCS: 74220

== ENCOUNTER → 2022-03-01 09:58 | Outpatient (CLI) | payer MEDICARE, SELFPAY ==
[2022-01-13 12:48] VITALS: BMI 26.6
[2022-03-01 12:48] LABS: COVID-19 CEPHEID PCR (VTM/NP) Negative (Negative)
== END ==
PROVIDERS: PCP Student in an Organized Health Care Education/Training Program; Visit Provider Family Medicine Sleep Medicine
DX: Z20.822 Contact with and (suspected) exposure to COVID-19 (principal)
CPT/HCPCS: C9803; U0003; U0005

== ENCOUNTER 2022-03-17 06:13 | Observation (INO) | payer MEDICARE, SELFPAY ==
[2022-01-13 12:48] VITALS: BMI 26.6
[2022-03-17] VITALS (73 sets, daily range): BP systolic 82–141; BP diastolic 51–83; PULSE 56–101; RESP 6–22; TEMP 36–36.4; O2SAT 94–99; BMI 26.5
--- NOTE | 2022-03-17 06:26 | ED.GENADULT ---
HPI - General Adult <Shai Hall, DO - Last Filed: 03/17/22 18:08> General Chief complaint: Dizziness Stated complaint: Nausea, Dizziness Time Seen by Provider: 03/17/22 06:14 Source: patient and EMS Mode of arrival: EMS Limitations: no limitations History of Present Illness HPI narrative: Patient is an 81-year-old male. Is brought in by EMS after having a episode this morning of feeling very lightheaded and nauseated and sweaty. He states that he woke up this morning feeling very lightheaded. He was able to walk to the bathroom. He did urinate. He was standing on he was urinating. Afterwards he stated that he felt like he was going to pass out. He laid down on the ground. He did not fall. He did not injure himself. He was very nauseous during that time. Denied chest pain, shortness of breath, vertigo symptoms, palpitations, change in bowel habits, headache or vision changes. He states he had very similar symptoms 2 days ago. He states that his symptoms lasted for period of time. The did improve as the day went on. Yesterday he felt much better. Same symptoms occurred again this morning. He does have a history of paroxysmal atrial fibrillation. He recently had a hiatal hernia surgery. He has had vertigo in the past however he states that today this was not a room spinning sensation and the symptoms are different from his prior history of vertigo. He did receive Zofran by EMS EN route. By the time I evaluated him he states that he felt much better. He does report that his diet has been different as of late because of the hernia surgery. Related Data Home Medications Medication Instructions Recorded Confirmed Vitamin C 1 tab PO DAILY 03/10/19 03/17/22 coQ10 (liposomal ubiquinol) 1 dose PO DAILY 03/10/19 03/17/22 multivitamin 1 tab PO DAILY 03/10/19 03/17/22 Previous Rx's Medication Instructions Recorded atorvastatin 20 mg tablet 20 mg PO BEDTIME #90 tab 02/22/21 Allergies Allergy/AdvReac Type Severity Reaction Status Date / Time No Known Drug Allergies Allergy Unverified 01/03/22 15:01 <Derrell Gonzalez DO - Last Filed: 03/17/22 13:09> History of Present Illness HPI narrative: Patient is an 81-year-old male. Is brought in by EMS after having a episode this morning of feeling very lightheaded and nauseated and sweaty. He states that he woke up this morning feeling very lightheaded. He was able to walk to the bathroom. He did urinate. He was standing on he was urinating. Afterwards he stated that he felt like he was going to pass out. He laid down on the ground. He did not fall. He did not injure himself. He was very nauseous during that time. Denied chest pain, shortness of breath, vertigo symptoms, palpitations, change in bowel habits, headache or vision changes. He states he had very similar symptoms 2 days ago. He states that his symptoms lasted for period of time. The did improve as the day went on. Yesterday he felt much better. Same symptoms occurred again this morning. He does have a history of paroxysmal atrial fibrillation. He recently had a hiatal hernia surgery. He has had vertigo in the past however he states that today this was not a room spinning sensation and the symptoms are different from his prior history of vertigo. He did receive Zofran by EMS EN route. By the time I evaluated him he states that he felt much better. He does report that his diet has been different as of late because of the hernia surgery. On occasion he takes a half tablet of Lisinopril 20mg if his BPs are running high and he did employ this method yesterday for the first time in [facility] Review of Systems <Shai Hall DO - Last Filed: 03/17/22 18:08> Constitutional Constitutional: Reports excessive sweating, Denies fatigue, Denies fever(s), Denies frequent falls and Denies headache(s) Eyes Eyes: Denies change in vision ENT Ears, Nose, Mouth, and Throat: Denies headache(s) and Denies sore throat Cardiovascular Cardiovascular: Denies chest pain, Denies rapid heart rate, Denies irregular heart rhythm and Denies dyspnea Respiratory Respiratory: Denies cough and Denies dyspnea Gastrointestinal Gastrointestinal: Denies abdominal pain, Reports nausea and Denies vomiting Genitourinary Genitourinary: Denies dysuria Musculoskeletal Musculoskeletal: Reports system reviewed and no additional complaints, except as documented Integumentary/Breasts Skin/Breast: Reports system reviewed and no additional complaints, except as documented Neurologic Neurologic: Denies frequent falls and Denies headache(s) Endocrine Endocrine: Reports excessive sweating and Denies fatigue Hematologic/Lymphatic On Anticoagulants: No Patient History <DO Misael Ansari Last Filed: 03/17/22 18:08> Medical History GERD (gastroesophageal reflux disease) Hearing loss Hyperlipidemia Hypertension Mumps (~1945) Paraesophageal hernia Syncope Vertigo (~2017) Surgical History Anesthesia History of hernia surgery (~1971) History of knee surgery (~1969) Family History Mother Brain aneurysm Social History household members: spouse, family and children Smoking Status: Former smoker alcohol intake: current Smoking Status: Former smoker alcohol intake frequency: a few times a week Substance Use Type: does not use Exam <DO Misael Ansari Last Filed: 03/17/22 18:08> Initial Vital Signs Initial Vital Signs: Vital Signs Temperature 97.5 F L 03/17/22 06:24 Pulse Rate 64 03/17/22 06:24 Respiratory Rate 18 03/17/22 06:24 Blood Pressure 124/61 03/17/22 06:24 Pulse Oximetry 98 03/17/22 06:24 Const General: cooperative, comfortable and well developed [facility] Head: normal to inspection and normocephalic Eyes General: Yes appearance normal, both eyes and all related structures Resp Effort & Inspection: normal respiratory effort Auscultation: clear to auscultation bilaterally Cardio Rate: regular rate Rhythm: regular rhythm GI Inspection: normal to inspection and non-distended Palpation: soft Skin General: no rashes or lesions noted Neuro General: patient alert, patient awake, patient oriented x3 and moves all extremities Cognition: normal cognition Speech: speech normal Extrem General: No edema Psych Appearance: grossly normal and well kempt <Derrell Gonzalez DO - Last Filed: 03/17/22 13:09> Initial Vital Signs Initial Vital Signs: Vital Signs Temperature 97.5 F L 03/17/22 06:24 Pulse Rate 64 03/17/22 06:24 Respiratory Rate 18 03/17/22 06:24 Blood Pressure 124/61 03/17/22 06:24 Pulse Oximetry 98 03/17/22 06:24 Scores <Shai Hall DO - Last Filed: 03/17/22 18:08> GCS Gurpreet coma scale eye opening: Spontaneous Gurpreet coma scale verbal response: Orientated Gurpreet coma scale motor response: Obey commands [place] coma scale total score: 15 <Derrell Gonzalez DO - Last Filed: 03/17/22 13:09> GCS Gurpreet coma scale total score: 15 Course <Shai Hall DO - Last Filed: 03/17/22 18:08> Orders Ordered: ED Orders 03/17/22 09:40 Troponin & CK Cardiac Panel Stat Acetaminophen (Acetaminophen 325 Mg Tablet) 650 mg PO Q6HR PRN PRN Reason: pain Atorvastatin Calcium (Atorvastatin 20 Mg Tablet) 20 mg PO BEDTIME REHAN Discontinued Medications Sodium Chloride (Normal Saline 0.9%) 1,000 mls @ 500 mls/hr IV BOLUS ONE Stop: 03/17/22 08:25 Last Infusion: 03/17/22 09:11 Dose: 0 mls/hr Documented by: Admin: 03/17/22 06:40 Dose: 500 mls/hr Documented by: LISA Sodium Chloride (Normal Saline 0.9%) 1,000 mls @ 1,000 mls/hr IV BOLUS ONE Stop: 03/17/22 10:13 Last Infusion: 03/17/22 11:20 Dose: 0 mls/hr Documented by: Admin: 03/17/22 09:47 Dose: 1,000 mls/hr Documented by: MARCEL Vital Signs Vital signs: Vital Signs - 8 hr 03/17/22 10:58 03/17/22 11:05 Pulse Rate [Orthostatic Lying] 71 Pulse Rate [Orthostatic Sitting] 72 Pulse Rate [Orthostatic Standing] 91 H Blood Pressure 119/63 Blood Pressure [Orthostatic Lying] 115/67 Blood Pressure [Orthostatic Sitting] 131/70 Blood Pressure [Orthostatic Standing] 108/58 L <Derrell Gonzalez DO - Last Filed: 03/17/22 13:09> Orders Ordered: ED Orders 03/17/22 09:40 Troponin & CK Cardiac Panel Stat Acetaminophen (Acetaminophen 325 Mg Tablet) 650 mg PO Q6HR PRN PRN Reason: pain Atorvastatin Calcium (Atorvastatin 20 Mg Tablet) 20 mg PO BEDTIME REHAN Discontinued Medications Sodium Chloride (Normal Saline 0.9%) 1,000 mls @ 500 mls/hr IV BOLUS ONE Stop: 03/17/22 08:25 Last Infusion: 03/17/22 09:11 Dose: 0 mls/hr Documented by: Admin: 03/17/22 06:40 Dose: 500 mls/hr Documented by: LISA Sodium Chloride (Normal Saline 0.9%) 1,000 mls @ 1,000 mls/hr IV BOLUS ONE Stop: 03/17/22 10:13 Last Infusion: 03/17/22 11:20 Dose: 0 mls/hr Documented by: Admin: 03/17/22 09:47 Dose: 1,000 mls/hr Documented by: MARCEL Vital Signs Vital signs: Vital Signs - 8 hr 03/17/22 10:58 03/17/22 11:05 Pulse Rate [Orthostatic Lying] 71 Pulse Rate [Orthostatic Sitting] 72 Pulse Rate [Orthostatic Standing] 91 H Blood Pressure 119/63 Blood Pressure [Orthostatic Lying] 115/67 Blood Pressure [Orthostatic Sitting] 131/70 Blood Pressure [Orthostatic Standing] 108/58 L Medical Decision Making <Shai Hall DO - Last Filed: 03/17/22 18:08> Lab Data Result diagrams: 03/17/22 06:00 03/17/22 06:00 Labs: Lab Results 03/17/22 03/17/22 03/17/22 Range/Units 06:00 06:00 09:40 WBC 7.0 (4.5-11.0) X10^3/uL RBC 3.74 L (4.5-5.9) X10^6/uL Hgb 11.7 L (13.5-17.5) g/dL Hct 33.9 L (41-53) % MCV 90.6 (80-100) fL MCH 31.3 (26-34) PG MCHC 34.6 (30-36) % RDW 14.4 (11.6-14.8) % Plt Count 273 (150-400) X10^3/uL Neut % (Auto) 53.4 (50-75) % Lymph % (Auto) 36.2 (25-40) % [place] % (Auto) 7.0 (3-14) % Eos % (Auto) 2.6 (2-4) % Baso % (Auto) 0.8 (0-2) % Neut # (Auto) 3700 (1923-9991) /uL Lymph # (Auto) 2500 (1584-1289) /uL [place] # (Auto) 500 (0-900) /uL Eos # (Auto) 200 (0-450) /uL Baso # (Auto) 100 (0-100) /uL Sodium 138 (137-145) mmol/L Potassium 4.2 (3.4-5.1) mmol/L Chloride 107 (98-107) mmol/L Carbon Dioxide 26 (22-32) mmol/L BUN 17 (9-20) mg/dL Creatinine 1.06 (0.66-1.25) mg/dL Estimated GFR > 60 (>60) mL/min BUN/Creatinine Ratio 16.0 (6-22) Glucose 127 H (80-110) mg/dL Calcium 8.2 L (8.4-10.2) mg/dL Magnesium 2.0 (1.6-2.3) mg/dL Total Bilirubin 0.4 (0.2-1.3) mg/dL AST 26 (17-59) IU/L ALT 17 (<50) IU/L Alkaline Phosphatase 49 (38-126) U/L Total Creatine Kinase 36 L 39 L (55-170) U/L CK-MB (CK-2) TNP TNP CK-MB (CK-2) Rel Index TNP TNP Troponin I < 0.012 < 0.012 (0.01-0.034) ng/mL Total Protein 6.0 L (6.3-8.2) g/dL Albumin 3.1 L (3.5-5.0) g/dL Globulin 2.9 (1.7-4.1) g/dL Albumin/Globulin Ratio 1.1 (1.0-2.8) Lipase 133 (23-300) U/L Ethyl Alcohol < 10 ( - 10) mg/dL MDM Narrative Medical decision making narrative: pt feels better labs pending, Care turned over Dr Gonzalez for dispo <Derrell Gonzalez, DO - Last Filed: 03/17/22 13:09> Lab Data Labs: Lab Results 03/17/22 03/17/22 03/17/22 Range/Units 06:00 06:00 09:40 WBC 7.0 (4.5-11.0) X10^3/uL RBC 3.74 L (4.5-5.9) X10^6/uL Hgb 11.7 L (13.5-17.5) g/dL Hct 33.9 L (41-53) % MCV 90.6 (80-100) fL MCH 31.3 (26-34) PG MCHC 34.6 (30-36) % RDW 14.4 (11.6-14.8) % Plt Count 273 (150-400) X10^3/uL Neut % (Auto) 53.4 (50-75) % Lymph % (Auto) 36.2 (25-40) % [place] % (Auto) 7.0 (3-14) % Eos % (Auto) 2.6 (2-4) % Baso % (Auto) 0.8 (0-2) % Neut # (Auto) 3700 (0869-5301) /uL Lymph # (Auto) 2500 (1670-9154) /uL [place] # (Auto) 500 (0-900) /uL Eos # (Auto) 200 (0-450) /uL Baso # (Auto) 100 (0-100) /uL Sodium 138 (137-145) mmol/L Potassium 4.2 (3.4-5.1) mmol/L Chloride 107 (98-107) mmol/L Carbon Dioxide 26 (22-32) mmol/L BUN 17 (9-20) mg/dL Creatinine 1.06 (0.66-1.25) mg/dL Estimated GFR > 60 (>60) mL/min BUN/Creatinine Ratio 16.0 (6-22) Glucose 127 H (80-110) mg/dL Calcium 8.2 L (8.4-10.2) mg/dL Magnesium 2.0 (1.6-2.3) mg/dL Total Bilirubin 0.4 (0.2-1.3) mg/dL AST 26 (17-59) IU/L ALT 17 (<50) IU/L Alkaline Phosphatase 49 (38-126) U/L Total Creatine Kinase 36 L 39 L (55-170) U/L CK-MB (CK-2) TNP TNP CK-MB (CK-2) Rel Index TNP TNP Troponin I < 0.012 < 0.012 (0.01-0.034) ng/mL Total Protein 6.0 L (6.3-8.2) g/dL Albumin 3.1 L (3.5-5.0) g/dL Globulin 2.9 (1.7-4.1) g/dL Albumin/Globulin Ratio 1.1 (1.0-2.8) Lipase 133 (23-300) U/L Ethyl Alcohol < 10 ( - 10) mg/dL ECG Data Interpretation: 0725 - EKG is normal sinus rhythm rate [ 64] and free of any signs of ischemia or ectopy. No ST segmental elevation or depression. No T wave inversions. 1st degree AV block [place] 228. MDM Narrative Medical decision making narrative: pt feels better labs pending, Care turned over Dr Gonzalez for dispo 0700 - (Carlos): Patient received in signout. I have reviewed the clinical course to this point. Independent history and physical performed. Labs reviewed. Repeat EKG ordered and reviewed. Patient is now on 2 separate occasions done orthostatics and become significantly symptomatic with change in blood pressure and increase in heart rate. After the 1st another bag of normal saline was administered, repeat EKG and a 2nd troponin ordered. He does feel little bit better after the 2nd but is still wobbly and not safe for ambulation with a change and vitals Discharge Plan Departure Patient Disposition: Admitted as Observation Clinical Impression: Orthostatic hypotension Admit Date/Time: 03/17/22 11:08 Admit Provider: Jj Mckeon
[2022-03-17] MEDS: SODIUM CHLORIDE 0.9% 1,000 ML 500 ML IV (06:40)
[2022-03-17 06:50] LABS: Alanine Aminotransferase 17 IU/L (<50); Albumin 3.1 g/dL (3.5-5.0); Albumin Globulin Ratio 1.1 (1.0-2.8); Alkaline Phosphatase 49 U/L (38-126); Aspartate Aminotransferase 26 IU/L (17-59); Bilirubin Total 0.4 mg/dL (0.2-1.3); Blood Urea Nitrogen 17 mg/dL (9-20); Calcium 8.2 mg/dL (8.4-10.2); Carbon Dioxide 26 mmol/L (22-32); Chloride 107 mmol/L (98-107); Creatine Kinase 36 U/L (55-170); Estimated Glomerular Filt Rate > 60 mL/min (>60); Ethanol (ETOH) < 10 mg/dL; Globulin 2.9 g/dL (1.7-4.1); Glucose 127 mg/dL (80-110); HEMOLYSIS < 15 (0-50); Lipase 133 U/L (23-300); Potassium 4.2 mmol/L (3.4-5.1); Sodium 138 mmol/L (137-145)
[2022-03-17 07:01] LABS: Troponin I < 0.012 ng/mL (0.01-0.034)
[2022-03-17 07:04] LABS: Add Manual Diff / Slide Review NO; Basophils Absolute Auto 100 /uL (0-100); Basophils Percent Auto 0.8 % (0-2); Eosinophils Absolute Auto 200 /uL (0-450); Eosinophils Percent Auto 2.6 % (2-4); Hematocrit 33.9 % (41-53); Hemoglobin 11.7 g/dL (13.5-17.5); Lymphocytes Absolute Auto 2500 /uL (1100-4500); Lymphocytes Percent Auto 36.2 % (25-40); Mean Corpuscular HGB Conc 34.6 % (30-36); Mean Corpuscular Hemoglobin 31.3 PG (26-34); Mean Corpuscular Volume 90.6 fL (80-100); Monocytes Absolute Auto 500 /uL (0-900); Neutrophils Absolute Auto 3700 /uL (1500-7000); Neutrophils Percent Auto 53.4 % (50-75); Platelet Count 273 X10^3/uL (150-400); Red Blood Cell Count 3.74 X10^6/uL (4.5-5.9); Red Cell Distribution Width 14.4 % (11.6-14.8)
[2022-03-17] MEDS: SODIUM CHLORIDE 0.9% 1,000 ML 1000 ML IV (09:47)
[2022-03-17 10:13] LABS: Creatine Kinase 39 U/L (55-170)
[2022-03-17 10:27] LABS: Troponin I < 0.012 ng/mL (0.01-0.034)
[2022-03-17 16:07] LABS: COVID19 -Nasal RAPID Negative (Negative)
--- NOTE | 2022-03-17 17:45 | PM.HP.1 ---
History of Present Illness History of Present Illness Date Patient Seen: 03/17/22 Time Patient Seen: 17:30 Chief complaint: Nausea, Dizziness Narrative: 81-year-old male with history of hyperlipidemia, GERD, recent hiatal hernia surgery presents with complaints of dizziness and nausea. He had hiatal hernia surgery 2 weeks ago. He has been on liquid diet and lost 17 lb since the surgery. Patient states he has been keeping well hydrated. He was feeling dizzy or lightheaded when he got up this morning to urinate. After urinating he became more dizzy with profuse sweats and nausea and almost fell. He was able to sit on the floor. He also felt better after gave him meclizine and Zofran. He has history of vertigo but states this is not similar to previous symptoms with the vertigo. For a long time, patient has taken lisinopril on a as needed basis. He monitors blood pressure and takes a lisinopril when his systolic goes up to 135-140 and he did take 10 mg lisinopril yesterday afternoon. He denies any history of cardiac disease, chest pains, shortness of breath or palpitations. On ER evaluation he was noted to be mildly orthostatic even after 1.5 L NS. Labs were unremarkable except mild postop anemia. Patient History Medical History GERD (gastroesophageal reflux disease) Hearing loss Hyperlipidemia Hypertension Mumps (~1945) Paraesophageal hernia Syncope Vertigo (~2017) Surgical History Anesthesia History of hernia surgery (~1971) History of knee surgery (~1969) Family & Social History Family History Mother Brain aneurysm Social History: household members spouse,family,children Prior Living Arrangements House Safety & Behavioral: Feels Safe in Current Yes Environment Been Physically Hurt or No Threatened By a Person Tobacco & Substance use: Tobacco type cigarettes Smoking Status Former smoker alcohol intake current alcohol intake frequency a few times a week Substance Use Type does not use Meds Home Medications and Allergies Home Medications Medication Instructions Recorded Confirmed Type Vitamin C 1 tab PO DAILY 03/10/19 03/17/22 History coQ10 (liposomal ubiquinol) 1 dose PO DAILY 03/10/19 03/17/22 History multivitamin 1 tab PO DAILY 03/10/19 03/17/22 History atorvastatin 20 mg tablet 20 mg PO BEDTIME #90 tab 02/22/21 03/17/22 Rx Allergies Allergy/AdvReac Type Severity Reaction Status Date / Time No Known Drug Allergies Allergy Unverified 01/03/22 15:01 Review of Systems Review of Systems Narrative: Ten point ROS negative other than noted Exam Vital Signs (past 8 hours): - 03/17/22 10:58 03/17/22 11:05 03/17/22 11:10 Temperature Pulse Rate 69 Pulse Rate [Orthostatic Lying] 71 Pulse Rate [Orthostatic Sitting] 72 Pulse Rate [Orthostatic Standing] 91 H Respiratory Rate 12 Blood Pressure 119/63 112/73 Blood Pressure [Orthostatic Lying] 115/67 Blood Pressure [Orthostatic Sitting] 131/70 Blood Pressure [Orthostatic Standing] 108/58 L Pulse Oximetry 03/17/22 11:15 03/17/22 11:20 03/17/22 11:25 Temperature Pulse Rate 68 67 66 Pulse Rate [Orthostatic Lying] Pulse Rate [Orthostatic Sitting] Pulse Rate [Orthostatic Standing] Respiratory Rate 14 12 16 Blood Pressure 121/64 117/65 118/66 Blood Pressure [Orthostatic Lying] Blood Pressure [Orthostatic Sitting] Blood Pressure [Orthostatic Standing] Pulse Oximetry 03/17/22 11:30 03/17/22 11:35 03/17/22 11:40 Temperature Pulse Rate 65 68 64 Pulse Rate [Orthostatic Lying] Pulse Rate [Orthostatic Sitting] Pulse Rate [Orthostatic Standing] Respiratory Rate 18 Blood Pressure 120/63 118/68 121/67 Blood Pressure [Orthostatic Lying] Blood Pressure [Orthostatic Sitting] Blood Pressure [Orthostatic Standing] Pulse Oximetry 03/17/22 11:45 03/17/22 11:50 03/17/22 11:55 Temperature Pulse Rate 64 63 62 Pulse Rate [Orthostatic Lying] Pulse Rate [Orthostatic Sitting] Pulse Rate [Orthostatic Standing] Respiratory Rate 12 12 14 Blood Pressure 116/65 115/64 117/65 Blood Pressure [Orthostatic Lying] Blood Pressure [Orthostatic Sitting] Blood Pressure [Orthostatic Standing] Pulse Oximetry 03/17/22 12:00 03/17/22 12:05 03/17/22 12:10 Temperature Pulse Rate 64 65 62 Pulse Rate [Orthostatic Lying] Pulse Rate [Orthostatic Sitting] Pulse Rate [Orthostatic Standing] Respiratory Rate 12 15 13 Blood Pressure 133/68 127/64 120/61 Blood Pressure [Orthostatic Lying] Blood Pressure [Orthostatic Sitting] Blood Pressure [Orthostatic Standing] Pulse Oximetry 03/17/22 12:15 03/17/22 12:25 03/17/22 12:30 Temperature Pulse Rate 58 L 92 H 67 Pulse Rate [Orthostatic Lying] Pulse Rate [Orthostatic Sitting] Pulse Rate [Orthostatic Standing] Respiratory Rate 13 18 15 Blood Pressure 115/59 L 128/77 Blood Pressure [Orthostatic Lying] Blood Pressure [Orthostatic Sitting] Blood Pressure [Orthostatic Standing] Pulse Oximetry 97 03/17/22 12:31 03/17/22 12:35 03/17/22 12:41 Temperature Pulse Rate 71 68 65 Pulse Rate [Orthostatic Lying] Pulse Rate [Orthostatic Sitting] Pulse Rate [Orthostatic Standing] Respiratory Rate 19 11 L 6 L Blood Pressure 120/58 L 127/62 113/66 Blood Pressure [Orthostatic Lying] Blood Pressure [Orthostatic Sitting] Blood Pressure [Orthostatic Standing] Pulse Oximetry 97 97 98 03/17/22 12:45 03/17/22 12:50 03/17/22 12:55 Temperature Pulse Rate 62 61 69 Pulse Rate [Orthostatic Lying] Pulse Rate [Orthostatic Sitting] Pulse Rate [Orthostatic Standing] Respiratory Rate 14 8 L 13 Blood Pressure 111/70 121/67 123/64 Blood Pressure [Orthostatic Lying] Blood Pressure [Orthostatic Sitting] Blood Pressure [Orthostatic Standing] Pulse Oximetry 98 98 98 03/17/22 13:00 03/17/22 13:05 03/17/22 13:10 Temperature Pulse Rate 60 62 56 L Pulse Rate [Orthostatic Lying] Pulse Rate [Orthostatic Sitting] Pulse Rate [Orthostatic Standing] Respiratory Rate 9 L 17 11 L Blood Pressure 120/63 119/61 112/57 L Blood Pressure [Orthostatic Lying] Blood Pressure [Orthostatic Sitting] Blood Pressure [Orthostatic Standing] Pulse Oximetry 99 98 99 03/17/22 13:15 03/17/22 13:20 03/17/22 13:26 Temperature Pulse Rate 74 72 66 Pulse Rate [Orthostatic Lying] Pulse Rate [Orthostatic Sitting] Pulse Rate [Orthostatic Standing] Respiratory Rate 21 20 13 Blood Pressure 104/58 L 141/81 H 124/74 Blood Pressure [Orthostatic Lying] Blood Pressure [Orthostatic Sitting] Blood Pressure [Orthostatic Standing] Pulse Oximetry 98 98 94 03/17/22 13:30 03/17/22 13:35 03/17/22 13:40 Temperature Pulse Rate 61 65 64 Pulse Rate [Orthostatic Lying] Pulse Rate [Orthostatic Sitting] Pulse Rate [Orthostatic Standing] Respiratory Rate 21 18 18 Blood Pressure 133/71 128/72 100/54 L Blood Pressure [Orthostatic Lying] Blood Pressure [Orthostatic Sitting] Blood Pressure [Orthostatic Standing] Pulse Oximetry 96 97 97 03/17/22 13:45 03/17/22 13:55 03/17/22 14:00 Temperature Pulse Rate 65 65 67 Pulse Rate [Orthostatic Lying] Pulse Rate [Orthostatic Sitting] Pulse Rate [Orthostatic Standing] Respiratory Rate 14 19 19 Blood Pressure 105/68 125/58 L 114/58 L Blood Pressure [Orthostatic Lying] Blood Pressure [Orthostatic Sitting] Blood Pressure [Orthostatic Standing] Pulse Oximetry 97 98 99 03/17/22 14:04 03/17/22 14:05 03/17/22 14:10 Temperature Pulse Rate 68 70 71 Pulse Rate [Orthostatic Lying] Pulse Rate [Orthostatic Sitting] Pulse Rate [Orthostatic Standing] Respiratory Rate 17 22 12 Blood Pressure 102/54 L 96/54 L Blood Pressure [Orthostatic Lying] Blood Pressure [Orthostatic Sitting] Blood Pressure [Orthostatic Standing] Pulse Oximetry 98 98 98 03/17/22 14:15 03/17/22 14:20 03/17/22 14:25 Temperature Pulse Rate 67 65 66 Pulse Rate [Orthostatic Lying] Pulse Rate [Orthostatic Sitting] Pulse Rate [Orthostatic Standing] Respiratory Rate 16 15 17 Blood Pressure 97/51 L 127/64 Blood Pressure [Orthostatic Lying] Blood Pressure [Orthostatic Sitting] Blood Pressure [Orthostatic Standing] Pulse Oximetry 98 98 98 03/17/22 14:30 03/17/22 14:35 03/17/22 14:40 Temperature Pulse Rate 67 65 66 Pulse Rate [Orthostatic Lying] Pulse Rate [Orthostatic Sitting] Pulse Rate [Orthostatic Standing] Respiratory Rate 17 17 20 Blood Pressure 126/66 101/55 L Blood Pressure [Orthostatic Lying] Blood Pressure [Orthostatic Sitting] Blood Pressure [Orthostatic Standing] Pulse Oximetry 98 97 98 05/06/22 14:45 03/17/22 14:50 03/17/22 15:10 Temperature 96.8 F L Pulse Rate 66 66 67 Pulse Rate [Orthostatic Lying] Pulse Rate [Orthostatic Sitting] Pulse Rate [Orthostatic Standing] Respiratory Rate 17 21 16 Blood Pressure 96/55 L 135/78 Blood Pressure [Orthostatic Lying] Blood Pressure [Orthostatic Sitting] Blood Pressure [Orthostatic Standing] Pulse Oximetry 98 98 98 03/17/22 15:20 Temperature Pulse Rate Pulse Rate [Orthostatic Lying] 67 Pulse Rate [Orthostatic Sitting] 71 Pulse Rate [Orthostatic Standing] 91 H Respiratory Rate Blood Pressure Blood Pressure [Orthostatic Lying] 135/78 Blood Pressure [Orthostatic Sitting] 140/80 Blood Pressure [Orthostatic Standing] 112/83 Pulse Oximetry Oxygen Delivery Method Room Air Oxygen Flow Rate 0 Narrative Exam Narrative: General: Alert very pleasant and cooperative male in no acute distress HEENT: Nontraumatic, pupils equal and reactive Neck: No lymphadenopathy Lungs: Clear to auscultation Heart: Regular rhythm without murmur Abdomen: Soft, nontender no HSM Extremities: Warm, dry and without edema Neurological: Well oriented, normal speech and affect Skin: Intact Objective Labs Result Diagrams: 03/17/22 06:00 03/17/22 06:00 Labs: Laboratory Results - last 24 hr 03/17/22 03/17/22 03/17/22 06:00 06:00 09:40 WBC 7.0 RBC 3.74 L Hgb 11.7 L Hct 33.9 L MCV 90.6 MCH 31.3 MCHC 34.6 RDW 14.4 Plt Count 273 Neut % (Auto) 53.4 Lymph % (Auto) 36.2 [place] % (Auto) 7.0 Eos % (Auto) 2.6 Baso % (Auto) 0.8 Neut # (Auto) 3700 Lymph # (Auto) 2500 [place] # (Auto) 500 Eos # (Auto) 200 Baso # (Auto) 100 Sodium 138 Potassium 4.2 Chloride 107 Carbon Dioxide 26 BUN 17 Creatinine 1.06 Estimated GFR > 60 BUN/Creatinine Ratio 16.0 Glucose 127 H Calcium 8.2 L Magnesium 2.0 Total Bilirubin 0.4 AST 26 ALT 17 Alkaline Phosphatase 49 Total Creatine Kinase 36 L 39 L CK-MB (CK-2) TNP TNP CK-MB (CK-2) Rel Index TNP TNP Troponin I < 0.012 < 0.012 Total Protein 6.0 L Albumin 3.1 L Globulin 2.9 Albumin/Globulin Ratio 1.1 Lipase 133 Ethyl Alcohol < 10 SARS-CoV-2 (PCR) 03/17/22 15:47 WBC RBC Hgb Hct MCV MCH MCHC RDW Plt Count Neut % (Auto) Lymph % (Auto) [place] % (Auto) Eos % (Auto) Baso % (Auto) Neut # (Auto) Lymph # (Auto) [place] # (Auto) Eos # (Auto) Baso # (Auto) Sodium Potassium Chloride Carbon Dioxide BUN Creatinine Estimated GFR BUN/Creatinine Ratio Glucose Calcium Magnesium Total Bilirubin AST ALT Alkaline Phosphatase Total Creatine Kinase CK-MB (CK-2) CK-MB (CK-2) Rel Index Troponin I Total Protein Albumin Globulin Albumin/Globulin Ratio Lipase Ethyl Alcohol SARS-CoV-2 (PCR) Negative Assessment & Plan Assessment & Plan narrative: 1. Orthostatic hypotension with near syncope -this is likely medication related side effect due to lisinopril which patient takes as needed for BP control, based on history provided it does not seem like he needs to take blood pressure lowering medications as home BP's are not above 140. Additionally he has lost 17 lb since his hiatal hernia surgery 2 weeks ago which should help with BP control. He has been keeping well hydrated and does not appear dry on exam. -telemetry overnight to rule out cardiac etiology of symptoms -discontinue antihypertensive as needed medication -continue atorvastatin he takes daily 2. Status post hiatal hernia surgery 2 weeks ago -transition to full liquid diet Code status: Full code Admit status: Observation Time Spent With Patient Critical Care time: I spent a total of [] minutes of critical care time on this patient's care today; this time is exclusive of procedural time. Quality VTE Deep Vein Thrombosis/Pulmonary Embolism Present on Admission: No
[2022-03-18 01:00] VITALS: BP 117/61; PULSE 68; RESP 16; TEMP 35.7; O2SAT 98
[2022-03-18 05:00] VITALS: BP 100/62; PULSE 57; RESP 14; TEMP 36.2; O2SAT 97
[2022-03-18 07:00] VITALS: BP 116/66; BP 119/76; BP 127/73; PULSE 56; PULSE 57; PULSE 58
[2022-03-18 08:04] VITALS: BP 116/66; PULSE 58; RESP 17; TEMP 36.1; O2SAT 96
--- NOTE | 2022-03-18 09:54 | PC.NURSE ---
Addendum entered by Tennille Oseguera R.N. 03/18/22 10:15: Pt daughter here, pt dressed, Pt escorted by staff via W/C to waiting vehicle D/C in stable condition. Original Note: Pt received discharge orders this am. Denies discomfort, or dizziness. Tele removed, HL removed intact. Given home instructons. Awaiting transportation.
--- NOTE | 2022-03-18 10:44 | CM.DANOTE ---
DCP: Case received, EMR reviewed and met with patient. Introduced self and role. Was able to obtain information regarding patient's baseline activity status at home prior to hospitalization. DCP assessment completed with information currently available. Patient is an 81 year old male who admitted yesterday morning to the care of the hospitalist team. PCP: Dr. Deshpande. Payer: confirmed: Medicare/[employer]. Patient came to the hospital via ambulance secondary to having lightheadness, nausea and diaphoresis. Patient felt like he was going to pass out when walking to the bathroom. Patient recently had hiatal hernia surgery. Patient was diagnosed with orthostatic hypotension with near syncope. According to notes, this may have been a side effect of one his blood pressure medications. Met with patient in his room. He is alert and oriented. Confirmed that he resides here in [place] with his spouse, Steffany. He is independent at his baseline. He is hoping that he can go home today. P: Patient is to be discharged home today. Spouse will be picking patient up. Daphne Fuentes RN/Software Test Developer Discharge Planning/Care Management CM Discharge Assessment Start: 03/18/22 10:42 Freq: Status: Active Protocol: Document 03/18/22 10:42 (Rec: 03/18/22 10:44 [id number]) Discharge Planning Assessment Assigned Wind Operations Manager Daphne Fuentes RN/Software Test Developer Advance Directives? Yes: ADV DIR Advance Directives on File Yes History Provided By Patient,Family Member,Medical Record Prior Living Arrangements House Household Members spouse,family,children Type of transporation used prior to Drives own vehicle admit Independent with ADL's Yes Is patient alert and oriented? Yes Caregiver for Another No Barriers to Discharge No Discharge Plan Home Referrals Initiated None needed Whiteboard Updated in Patient Room with Yes name and ext. # of Wind Operations Manager Review Status In Process Next Review Type Continued Stay Review Discharge Planning/Care Management CM Discharge Assessment Start: 03/18/22 10:42 Freq: Status: Active Protocol: Document 03/18/22 10:42 (Rec: 03/18/22 10:44 [id number]) Discharge Planning Assessment Assigned Wind Operations Manager Daphne Fuentes RN/Software Test Developer Advance Directives? Yes: ADV DIR Advance Directives on File Yes History Provided By Patient,Family Member,Medical Record Prior Living Arrangements House Household Members spouse,family,children Type of transporation used prior to Drives own vehicle admit Independent with ADL's Yes Is patient alert and oriented? Yes Caregiver for Another No Barriers to Discharge No Discharge Plan Home Referrals Initiated None needed Whiteboard Updated in Patient Room with Yes name and ext. # of Wind Operations Manager Review Status In Process Next Review Type Continued Stay Review
--- NOTE | 2022-03-18 17:42 | PM.DS.1 ---
History of Present Illness History of Present Illness Chief complaint: Nausea, Dizziness Narrative: 81-year-old male with history of hyperlipidemia, GERD, recent hiatal hernia surgery presents with complaints of dizziness and nausea. He had hiatal hernia surgery 2 weeks ago. He has been on liquid diet and lost 17 lb since the surgery. Patient states he has been keeping well hydrated. He was feeling dizzy or lightheaded when he got up this morning to urinate. After urinating he became more dizzy with profuse sweats and nausea and almost fell. He was able to sit on the floor. He also felt better after gave him meclizine and Zofran. He has history of vertigo but states this is not similar to previous symptoms with the vertigo. For a long time, patient has taken lisinopril on a as needed basis. He monitors blood pressure and takes a lisinopril when his systolic goes up to 135-140 and he did take 10 mg lisinopril yesterday afternoon. He denies any history of cardiac disease, chest pains, shortness of breath or palpitations. On ER evaluation he was noted to be mildly orthostatic even after 1.5 L NS. Labs were unremarkable except mild postop anemia. Discharge Providers Provider Date of admission: 03/17/22 11:08 Discharge Date: 03/18/22 Primary care physician: Zev Deshpande MD Discharge provider: Jj Mcekon MD Summary Hospital Course Discharge Diagnosis: 1. Orthostatic hypotension 2. Adverse reaction to antihypertensive medication Hospital Course: Patient was admitted and provided IV hydration. Presenting symptoms are consistent with patient's routine of taking lisinopril as needed when blood pressure gets high normal. He is unnecessarily medicating himself. He has also lost 17 lb recently since his hiatal hernia surgery which should help BP control. On a.m. of discharge he is completely asymptomatic with mobilizing out of bed and feels comfortable going home. Exam Vital Signs (past 8 hours): Oxygen Delivery Method Room Air Oxygen Flow Rate 0 Narrative Exam Narrative: General: Pleasant alert well oriented male in no distress Objective Labs Result Diagrams: 03/17/22 06:00 03/17/22 06:00 [facility] Medical History GERD (gastroesophageal reflux disease) Hearing loss Hyperlipidemia Hypertension Mumps (~1945) Paraesophageal hernia Syncope Vertigo (~2017) Surgical History Anesthesia History of hernia surgery (~1971) History of knee surgery (~1969) Family History Mother Brain aneurysm Social History household members: spouse, family and children Smoking Status: Former smoker alcohol intake: current Discharge Plan Discharge Plan Patient Disposition: Home Discharge orders & Medications Prescriptions: Continued atorvastatin 20 mg tablet 20 mg PO BEDTIME Qty: 90 3RF multivitamin Tablet,Chewable 1 tab PO DAILY 0RF Label Comments: adult gummy Vitamin C 1 tab PO DAILY 0RF coQ10 (liposomal ubiquinol) 1 dose PO DAILY 0RF Discontinued lisinopril 20 mg tablet 10 mg PO DAILY PRN (Reason: high BP) 0RF Label Comments: takes as needed for BP > 135 systolic Follow up/Referrals: Zev Deshpande MD [Primary Care Provider] - Diet/Activity/Treatments Diet: Regular Discharge Data Primary Care Provider: Zev Deshpande Attending Provider: Jj Mckeon VTE Deep Vein Thrombosis/Pulmonary Embolism Present on Admission: No
== END 2022-03-18 10:20 | disposition home or self-care (01) ==
LOC: ED 07:15 → AC 11:09
PROVIDERS: Emergency Medicine; Admitting Provider Internal Medicine; Emergency Provider Emergency Medicine; PCP Student in an Organized Health Care Education/Training Program; Referring Provider Emergency Medicine; Visit Provider Internal Medicine
DX: I95.1 Orthostatic hypotension (principal); R42 Dizziness and giddiness; I48.0 Paroxysmal atrial fibrillation; R11.0 Nausea; Z98.890 Other specified postprocedural states; K21.9 Gastro-esophageal reflux disease without esophagitis; E78.5 Hyperlipidemia, unspecified; T50.905A Adverse effect of unspecified drugs, medicaments and biological substances, initial encounter; Z20.822 Contact with and (suspected) exposure to COVID-19
CPT/HCPCS: 36415; 80053; 80320; 82550; 83690; 83735; 84484; 85025; 87635; 93005; 93010; 99284; C9803; G0378

== ENCOUNTER 2022-11-10 13:45 | Outpatient (RCR) | payer MEDICARE, SELFPAY ==
[2022-03-17 15:02] VITALS: BMI 26.5
--- NOTE | 2022-10-23 14:56 | PT.OIE ---
Current Diagnoses Other abnormalities of gait and mobility (10/23/22) History of falling (10/23/22) Past Medical History (Last Updated 03/27/22 @ 13:51 by Zev Deshpande MD) GERD (gastroesophageal reflux disease) Hearing loss Hyperlipidemia Hypertension Mumps (~1945) Syncope Vertigo (~2017) Past Surgical History (Last Reviewed 12/27/21 @ 15:51 by Rosemarie Fitch MD) Anesthesia History of hernia surgery (~1972) History of knee surgery (~1970) Visit Care Team Role Provider Type Zev Deshpande MD Attending Provider Physician Family Provider Primary Care Provider Referring Provider Specialty: Internal Medicine Address: [address] [place] [address], [address], [facility] Email: [email or web address] Physical Therapy Initial Evaluation PT-OP-A Visit Information Start: 10/23/22 14:32 Freq: Status: Active Protocol: Document 10/23/22 12:15 DCW (Rec: 10/23/22 14:43 DCW [id number]) Out-Patient Physical Therapy Visit Information Visit Information Visit Type Initial Evaluation Visit Note Arrives 21 minutes late Visit Start Time 12:15 Visit Stop Time 12:45 Total Visit Minutes 30 Visit Number 1 Number of BINDER LOCKSTITCH Visits 0 Evaluation Information Evaluation Date 10/23/22 PT-OP-B Current Condition Start: 10/23/22 14:32 Freq: Status: Active Protocol: Document 10/23/22 12:15 DCW (Rec: 10/23/22 14:43 DCW [id number]) Current Condition History of Current Condition Onset Date Eight months Current Complaints declining balance, falls History of Current Condition Pt is an 82 year old male presenting with a long- standing history of decreasing balance. Pt reports he has gotten worse since February, when he underwent a hiatal hernia surgery. Has recently fallen one time, reports he was walking around his bed and tripped on the sheets that were on the floor. Uses a cane when out on uneven surfaces or on hills, but typically does not use an AD. Has one level house, but no SUSAN. Treatment Goals Patient/Caregiver Goals Return to driving range, feel more stable on hills and walking in his yard PT-OP-C Subjective Start: 10/23/22 14:43 Freq: Status: Active Protocol: Document 10/23/22 12:15 DCW (Rec: 10/23/22 14:56 DCW [id number]) OP-PT Subjective Patient Comments Patient Comments I really just take my cane with me most of the time just in case I need it. Patient Reported Progress Worse Patient Questionnaires ABC- Activity Specific Balance Confidence Scale ABC Score 78.44% ABC Functional Impairment 20 to <40% Impaired (Score 61- 80) Dizziness Handicap Inventory DHI Score 24% DHI Functional Impairment 20 to 39% Impaired (Score 20- 39) OP-PT Pain Assessment Pain Assessment Grid Paper Pain Assessment Grid Completed No: pain PT-OP-D Balance Start: 10/23/22 14:32 Freq: Status: Active Protocol: Document 10/23/22 12:15 DCW (Rec: 10/23/22 14:43 DCW [id number]) Balance Tests Eagle Balance Test Eagle Balance Test Score 40/56 Eagle Impairment Rating 20 to 39% Impaired (Score 34- 44) Eagle Balance Assessment Evaluation Sitting to Standing Ability Independent w/Hands Unsupported Stance Safely- 2 minutes Sitting Unsupported, Feet on Floor Safely- 2 minutes Standing to Sitting Ability Assist, Control w/Hands Transfer Ability Safely, Hand Use Unsupported Stance- Eyes Closed Supervision, 10 seconds Unsupported Stance- Eyes Open Independent, <30 seconds Reaching Forward Standing Safely, 5 inches Pick- Up Object From Floor Independent/Safe Look Behind Shoulder - Standing Shifts Weight Unilateral Turning 360 Degrees Turns slowly, but safely Unsupported Stance, Alternating Feet on 4 Steps w/Supervision Stair Unsupported Tandem Stance Small Step- 30 seconds Unilateral Leg Stance Lifts Leg/Holds > 3 secs Total Score Eagle Total Score (out of 56 points) 40 Eagle Impairment Rating 20 to 39% Impaired (Score 34- 44) PT-OP-E Functional Tests Start: 10/23/22 14:32 Freq: Status: Active Protocol: Document 10/23/22 12:15 DCW (Rec: 10/23/22 14:43 DCW [id number]) Functional Tests Dynamic Gait Index (DGI) Score 18/24 DGI Impairment Rating 20 to <40% Impaired (Score 15- 19) Timed Up and Go (TUG) Score 13.99 Comments Three-trial average (14.8, 13. 66, 13.52) TUG Impairment Rating 40 to <60% Impaired (Score 14- 15) PT-OP-M Strength Start: 10/23/22 14:32 Freq: Status: Active Protocol: Document 10/23/22 12:15 DCW (Rec: 10/23/22 14:43 DCW [id number]) Hip Strength Hip Manual Muscle Testing Right Flexion (L2) 4+ Good+ Abduction 4+ Good+ Adduction 4+ Good+ Left Flexion (L2) 4+ Good+ Abduction 4+ Good+ Adduction 4+ Good+ Knee Strength Knee Manual Muscle Testing Right Flexion (S2) 4- Good- Extension (L3) 4+ Good+ Left Flexion (S2) 4+ Good+ Extension (L3) 4+ Good+ PT-OP-T Assessment and Plan Start: 10/23/22 14:32 Freq: Status: Active Protocol: Document 10/23/22 12:15 DCW (Rec: 10/23/22 14:56 DCW [id number]) Physical Therapy Assessment Rehab Potential Rehabilitation Potential Excellent Evaluation Complexity Number of Personal Factors/Comorbidities 1-2 Number of Body Systems Impaired 1-2 Clinical Presentation at Evaluation Stable Impairments Impairments Activity Tolerance,Balance, Functional Activities, Functional Mobility,Strength, Transfers Goals Two Impairment Pt unable to participate in golf due to instability Intermediate Goal (LTG) Pt to increase Eagle Balance score by at least 6 points to 46/56 in order to demonstrate a decreased falls risk to improve pt's ability to participate in outdoor hobbies . LTG Duration 12/24/22 One Impairment Pt does not have an appropriate home exercise program Short Term Goal (STG) Pt to be independent and compliant with an appropriate HEP STG Duration 11/23/22 Assessment Summary Assessment Pt presents with signs and symptoms consistent with multifactoral instability. Nom signs of a vestibular component, however pt does have some LE weakness, specifically right knee flexion, as well as an increased fear of falling, and is at an increased risk of falling, per scores on Eagle ( 40/56) and DGI (18/24). Pt should benefit from skilled therapy focusing on improving both dynamic and static balance, LE strength, transfer ability without UE support, and standing tolerance. Pt has increased difficulty with ambulating downhill and walking over uneven surfaces, like his yard. Physical Therapy Plan Frequency and Duration Frequency of Treatment 2x/Week Plan of Care Start Date 12/12/22 Plan of Care End Date 12/24/22 Therapeutic Interventions Therapeutic Interventions Balance Training,Gait Training ,Home Exercise Program,Manual Therapy,Neuromuscular Re- education,Patient/Caregiver Education,Self-Care/Home Management,Soft Tissue Mobilization,Therapeutic Activities,Therapeutic Exercises Next Visit Focus/Plan Next Note Type Treatment Note Next Visit Plan Balance training, LE strengthening
--- NOTE | 2022-10-23 14:57 | PT.OPPOC ---
Physical, Occupational & Speech Therapy At [facility] Current Diagnoses Other abnormalities of gait and mobility (10/23/22) History of falling (10/23/22) Visit Care Team Role Provider Type Zev Deshpande MD Attending Provider Physician Family Provider Primary Care Provider Referring Provider Specialty: Internal Medicine Address: [address] [place] [address], [facility] Email: [email or web address] Plan Of Care PT-OP-T Assessment and Plan Start: 10/23/22 14:32 Freq: Status: Active Protocol: Document 10/23/22 12:15 DCW (Rec: 10/23/22 14:56 DCW [id number]) Physical Therapy Assessment Rehab Potential Rehabilitation Potential Excellent Evaluation Complexity Number of Personal Factors/Comorbidities 1-2 Number of Body Systems Impaired 1-2 Clinical Presentation at Evaluation Stable Impairments Impairments Activity Tolerance,Balance, Functional Activities, Functional Mobility,Strength, Transfers Goals Two Impairment Pt unable to participate in golf due to instability Supervisor Record Press Goal (LTG) Pt to increase Eagle Balance score by at least 6 points to 46/56 in order to demonstrate a decreased falls risk to improve pt's ability to participate in outdoor hobbies . LTG Duration 12/24/22 One Impairment Pt does not have an appropriate home exercise program Short Term Goal (STG) Pt to be independent and compliant with an appropriate HEP STG Duration 11/23/22 Assessment Summary Assessment Pt presents with signs and symptoms consistent with multifactoral instability. Nom signs of a vestibular component, however pt does have some LE weakness, specifically right knee flexion, as well as an increased fear of falling, and is at an increased risk of falling, per scores on Eagle ( 40/56) and DGI (18/24). Pt should benefit from skilled therapy focusing on improving both dynamic and static balance, LE strength, transfer ability without UE support, and standing tolerance. Pt has increased difficulty with ambulating downhill and walking over uneven surfaces, like his yard. Physical Therapy Plan Frequency and Duration Frequency of Treatment 2x/Week Plan of Care Start Date 10/23/22 Plan of Care End Date 12/24/22 Therapeutic Interventions Therapeutic Interventions Balance Training,Gait Training ,Home Exercise Program,Manual Therapy,Neuromuscular Re- education,Patient/Caregiver Education,Self-Care/Home Management,Soft Tissue Mobilization,Therapeutic Activities,Therapeutic Exercises Next Visit Focus/Plan Next Note Type Treatment Note Next Visit Plan Balance training, LE strengthening Plan of Care Dates Plan of Care Start Date 10/23/22 Plan of Care End Date 12/24/22 Electronically Signed by: Eleazar Castillo, PT 10/23/22 2734 If you are in agreement with this Plan of Care, please return a signed and dated copy. I have reviewed this Plan of Care and certify that the skilled therapy services above are required to meet the patient?s needs. Physician Signature Date Printed Name and Credentials Clinical Instructor Signature Printed Name and Credentials
--- NOTE | 2022-10-25 16:18 | PT.OTN ---
Current Diagnoses Other abnormalities of gait and mobility (10/25/22) History of falling (10/25/22) Physical Therapy Treatment Note PT-OP-A Visit Information Start: 10/23/22 14:32 Freq: Status: Active Protocol: Document 10/25/22 15:15 DCW (Rec: 10/25/22 16:14 DCW [id number]) Out-Patient Physical Therapy Visit Information Visit Information Visit Type Treatment Note Visit Start Time 15:15 Visit Stop Time 16:00 Total Visit Minutes 45 Visit Number 2 Number of MANAGER UNIT Visits 0 Evaluation Information Evaluation Date 10/23/22 PT-OP-B Current Condition Start: 10/23/22 14:32 Freq: Status: Active Protocol: Document 10/23/22 12:15 DCW (Rec: 10/23/22 14:43 DCW [id number]) Current Condition History of Current Condition Onset Date Eight months Current Complaints declining balance, falls History of Current Condition Pt is an 82 year old male presenting with a long- standing history of decreasing balance. Pt reports he has gotten worse since February, when he underwent a hiatal hernia surgery. Has recently fallen one time, reports he was walking around his bed and tripped on the sheets that were on the floor. Uses a cane when out on uneven surfaces or on hills, but typically does not use an AD. Has one level house, but no SUSAN. Treatment Goals Patient/Caregiver Goals Return to driving range, feel more stable on hills and walking in his yard PT-OP-C Subjective Start: 10/23/22 14:43 Freq: Status: Active Protocol: Document 10/25/22 15:15 DCW (Rec: 10/25/22 16:18 DCW [id number]) OP-PT Subjective Patient Comments Patient Comments Pt reports he is feeling pretty good today, ready to get to work. PT-OP-D Balance Start: 10/23/22 14:32 Freq: Status: Active Protocol: Document 10/23/22 12:15 DCW (Rec: 10/23/22 14:43 DCW [id number]) Balance Tests Eagle Balance Test Eagle Balance Test Score 40/56 Eagle Impairment Rating 20 to 39% Impaired (Score 34- 44) Eagle Balance Assessment Evaluation Sitting to Standing Ability Independent w/Hands Unsupported Stance Safely- 2 minutes Sitting Unsupported, Feet on Floor Safely- 2 minutes Standing to Sitting Ability Assist, Control w/Hands Transfer Ability Safely, Hand Use Unsupported Stance- Eyes Closed Supervision, 10 seconds Unsupported Stance- Eyes Open Independent, <30 seconds Reaching Forward Standing Safely, 5 inches Pick- Up Object From Floor Independent/Safe Look Behind Shoulder - Standing Shifts Weight Unilateral Turning 360 Degrees Turns slowly, but safely Unsupported Stance, Alternating Feet on 4 Steps w/Supervision Stair Unsupported Tandem Stance Small Step- 30 seconds Unilateral Leg Stance Lifts Leg/Holds > 3 secs Total Score Eagle Total Score (out of 56 points) 40 Eagle Impairment Rating 20 to 39% Impaired (Score 34- 44) PT-OP-E Functional Tests Start: 10/23/22 14:32 Freq: Status: Active Protocol: Document 10/23/22 12:15 DCW (Rec: 10/23/22 14:43 DCW [id number]) Functional Tests Dynamic Gait Index (DGI) Score 18/24 DGI Impairment Rating 20 to <40% Impaired (Score 15- 19) Timed Up and Go (TUG) Score 13.99 Comments Three-trial average (14.8, 13. 66, 13.52) TUG Impairment Rating 40 to <60% Impaired (Score 14- 15) PT-OP-M Strength Start: 10/23/22 14:32 Freq: Status: Active Protocol: Document 10/23/22 12:15 DCW (Rec: 10/23/22 14:43 DCW [id number]) Hip Strength Hip Manual Muscle Testing Right Flexion (L2) 4+ Good+ Abduction 4+ Good+ Adduction 4+ Good+ Left Flexion (L2) 4+ Good+ Abduction 4+ Good+ Adduction 4+ Good+ Knee Strength Knee Manual Muscle Testing Right Flexion (S2) 4- Good- Extension (L3) 4+ Good+ Left Flexion (S2) 4+ Good+ Extension (L3) 4+ Good+ PT-OP-Q Treatments Start: 10/23/22 14:32 Freq: Status: Active Protocol: Document 10/25/22 15:15 DCW (Rec: 10/25/22 16:14 DCW [id number]) Gym Equipment Shuttle Recovery Unilateral Squats Resistance 37# Shuttle Recovery Platform Stable Reps/Time x15 Bilateral Squats Resistance 75# Shuttle Recovery Platform Stable Reps/Time x15 Therapeutic Exercises Standing Exercises Hip Extension Standing Exercise Name Extension Side bilateral Resistance Red Other Exercises Resisted Ambulation Other Exercise Name Resisted side-stepping Resistance Red Neuro Re-Education Treatment Balance Activities Tilt board Details DF/PF, Lateral tilt Equipment // bars Hurdles Details Hurdles/Foam Equipment // bars SLS Details SLS Surface Blue foam Equipment // bars Tandem Stance Details Tandem Stance Equipment // bars PT-OP-T Assessment and Plan Start: 10/23/22 14:32 Freq: Status: Active Protocol: Document 10/25/22 15:15 DCW (Rec: 10/25/22 16:14 DCW [id number]) Physical Therapy Assessment Impairments Impairments Activity Tolerance,Balance, Functional Activities, Functional Mobility,Strength, Transfers Goals Two Impairment Pt unable to participate in golf due to instability Food Service Supervisor Goal (LTG) Pt to increase Eagle Balance score by at least 6 points to 46/56 in order to demonstrate a decreased falls risk to improve pt's ability to participate in outdoor hobbies . LTG Duration 12/24/22 One Impairment Pt does not have an appropriate home exercise program Short Term Goal (STG) Pt to be independent and compliant with an appropriate HEP STG Duration 11/23/22 Assessment Summary Assessment Pt noted his PT session today was much more difficult than he expected, and made him realize that his balance is worse than he thought. Did well with balance challenges today, no need for any extended rest breaks. Continue with increased balance challenges. Physical Therapy Plan Frequency and Duration Frequency of Treatment 2x/Week Plan of Care Start Date 10/23/22 Plan of Care End Date 12/24/22 Therapeutic Interventions Therapeutic Interventions Balance Training,Gait Training ,Home Exercise Program,Manual Therapy,Neuromuscular Re- education,Patient/Caregiver Education,Self-Care/Home Management,Soft Tissue Mobilization,Therapeutic Activities,Therapeutic Exercises Next Visit Focus/Plan Next Note Type Treatment Note Next Visit Plan Balance training, LE strengthening
--- NOTE | 2022-10-31 14:11 | PT-OP ANOTE ---
Pt cancelled due to snow.
--- NOTE | 2022-11-07 13:48 | PT.OTN ---
Addendum entered and electronically signed by Cinthia Priest, OPEN HEARTH FURNACE OPERATOR 11/07/22 14:10: Check pt added more appts now for allowance availability continue POC progression, has one more appt then busy the next 2 weeks appts to start after those 2 weeks. Original Note: Current Diagnoses Other abnormalities of gait and mobility (11/07/22) History of falling (11/07/22) Physical Therapy Treatment Note PT-OP-A Visit Information Start: 10/23/22 14:32 Freq: Status: Active Protocol: Document 11/07/22 13:07 SP (Rec: 11/07/22 13:48 SP [id number]) Out-Patient Physical Therapy Visit Information Visit Information Visit Type Treatment Note Visit Start Time 13:07 Visit Stop Time 13:48 Total Visit Minutes 41 Visit Number 3 Number of OPEN HEARTH FURNACE OPERATOR Visits 1 Evaluation Information Evaluation Date 10/23/22 PT-OP-B Current Condition Start: 10/23/22 14:32 Freq: Status: Active Protocol: Document 10/23/22 12:15 DCW (Rec: 10/23/22 14:43 DCW [id number]) Current Condition History of Current Condition Onset Date Eight months Current Complaints declining balance, falls History of Current Condition Pt is an 82 year old male presenting with a long- standing history of decreasing balance. Pt reports he has gotten worse since February, when he underwent a hiatal hernia surgery. Has recently fallen one time, reports he was walking around his bed and tripped on the sheets that were on the floor. Uses a cane when out on uneven surfaces or on hills, but typically does not use an AD. Has one level house, but no SUSAN. Treatment Goals Patient/Caregiver Goals Return to driving range, feel more stable on hills and walking in his yard PT-OP-C Subjective Start: 10/23/22 14:43 Freq: Status: Active Protocol: Document 11/07/22 13:07 SP (Rec: 11/07/22 13:48 SP [id number]) OP-PT Subjective Patient Comments Patient Comments Pt reports little sore after last tx but good work felt did . PT-OP-D Balance Start: 10/23/22 14:32 Freq: Status: Active Protocol: Document 10/23/22 12:15 DCW (Rec: 10/23/22 14:43 DCW [id number]) Balance Tests Eagle Balance Test Eagle Balance Test Score 40/56 Eagle Impairment Rating 20 to 39% Impaired (Score 34- 44) Eagle Balance Assessment Evaluation Sitting to Standing Ability Independent w/Hands Unsupported Stance Safely- 2 minutes Sitting Unsupported, Feet on Floor Safely- 2 minutes Standing to Sitting Ability Assist, Control w/Hands Transfer Ability Safely, Hand Use Unsupported Stance- Eyes Closed Supervision, 10 seconds Unsupported Stance- Eyes Open Independent, <30 seconds Reaching Forward Standing Safely, 5 inches Pick- Up Object From Floor Independent/Safe Look Behind Shoulder - Standing Shifts Weight Unilateral Turning 360 Degrees Turns slowly, but safely Unsupported Stance, Alternating Feet on 4 Steps w/Supervision Stair Unsupported Tandem Stance Small Step- 30 seconds Unilateral Leg Stance Lifts Leg/Holds > 3 secs Total Score Eagle Total Score (out of 56 points) 40 Eagle Impairment Rating 20 to 39% Impaired (Score 34- 44) PT-OP-E Functional Tests Start: 10/23/22 14:32 Freq: Status: Active Protocol: Document 10/23/22 12:15 DCW (Rec: 10/23/22 14:43 DCW [id number]) Functional Tests Dynamic Gait Index (DGI) Score 18/24 DGI Impairment Rating 20 to <40% Impaired (Score 15- 19) Timed Up and Go (TUG) Score 13.99 Comments Three-trial average (14.8, 13. 66, 13.52) TUG Impairment Rating 40 to <60% Impaired (Score 14- 15) PT-OP-M Strength Start: 10/23/22 14:32 Freq: Status: Active Protocol: Document 10/23/22 12:15 DCW (Rec: 10/23/22 14:43 DCW [id number]) Hip Strength Hip Manual Muscle Testing Right Flexion (L2) 4+ Good+ Abduction 4+ Good+ Adduction 4+ Good+ Left Flexion (L2) 4+ Good+ Abduction 4+ Good+ Adduction 4+ Good+ Knee Strength Knee Manual Muscle Testing Right Flexion (S2) 4- Good- Extension (L3) 4+ Good+ Left Flexion (S2) 4+ Good+ Extension (L3) 4+ Good+ PT-OP-Q Treatments Start: 10/23/22 14:32 Freq: Status: Active Protocol: Document 11/07/22 13:07 SP (Rec: 11/07/22 13:48 SP [id number]) Gym Equipment Shuttle Recovery Unilateral Squats Details cued slow controlled pacing Resistance 37#> 50# Shuttle Recovery Platform Stable Reps/Time 2x10 Bilateral Squats Details cued slow controlled pacing Resistance 75# > 87# Shuttle Recovery Platform Stable Reps/Time 2x15 Therapeutic Exercises Sitting Exercises STS Sitting Exercise Name added to HEP: hip hinge arms across chest vs front Equipment Used mesh chair (arms across chest) Reps/Minutes x8 reps, x5 reps end tx Comments 1st rep fell back into chair, post cues scoot fwd/feetback/ hip hinge up/dwn Standing Exercises HRTR Standing Exercise Name added to HEP: heel/toe raises Equipment Used //bars light contact 1 finger HR, prn/light contact dry sink TR Reps/Minutes x10 reps Comments cued tall posture fwd over mid foot Hip Extension Standing Exercise Name HEP reviewed: Extension Side bilateral Resistance AROM this tx form for home Equipment Used contact dry sink (//bars in PT ) Reps/Minutes x10 Comments cued tall posture over stance LE, opp LE knee straight hip ext Self-Care/Home Management Treatment Education Patient Education Body Mechanics,Fall Risk,Home Exercise Program,Posture, Safety Other Education Much time spent on hip hinge and COG over LENORA during STS, HRTR, hip extension for HEP. Education and pt verbalized contact UEs for safety needed. PT-OP-T Assessment and Plan Start: 10/23/22 14:32 Freq: Status: Active Protocol: Document 11/07/22 13:07 SP (Rec: 11/07/22 13:48 SP [id number]) Physical Therapy Assessment Goals Two Impairment Pt unable to participate in golf due to instability Halfway Goal (LTG) Pt to increase Eagle Balance score by at least 6 points to 46/56 in order to demonstrate a decreased falls risk to improve pt's ability to participate in outdoor hobbies . LTG Duration 12/24/22 One Impairment Pt does not have an appropriate home exercise program Short Term Goal (STG) Pt to be independent and compliant with an appropriate HEP 11/07/22: progressing: added HRTR, STS arms front/across chest hip hinge from chair, hip extension. STG Duration 11/23/22 progressing 11/07/22 Assessment Summary Assessment Pt was able to increase resistance on shuttle recovery . Pt retro lean coming to standing, cued lean fwd into full foot. Pt fell retro into chair near //bars, chair tipped back but stable against wall, barely able to provide CGA for safety. Much of tx provided education for safety STS, improved post set up and cues for slow hip hinge ascend /descend arms front vs across chest for LE/ core HEP but pt understood use of hands on chair always a safe strategy. Add heel/toe raises contact dry sink and review hip extension AROM for home with HOs provided. Pt improved more forward into full foot COG leaving, less LUE WB on SPC. Physical Therapy Plan Frequency and Duration Frequency of Treatment 2x/Week Plan of Care Start Date 10/23/22 Plan of Care End Date 12/24/22 Therapeutic Interventions Therapeutic Interventions Balance Training,Gait Training ,Home Exercise Program,Manual Therapy,Neuromuscular Re- education,Patient/Caregiver Education,Self-Care/Home Management,Soft Tissue Mobilization,Therapeutic Activities,Therapeutic Exercises Next Visit Focus/Plan Next Note Type Treatment Note Next Visit Plan REview HEP: STS/hip hinge, HRTR, hip ext. POC: Balance training, LE strengthening
--- NOTE | 2022-11-10 14:30 | PT.OTN ---
Current Diagnoses Other abnormalities of gait and mobility (11/10/22) History of falling (11/10/22) Physical Therapy Treatment Note PT-OP-A Visit Information Start: 10/23/22 14:32 Freq: Status: Active Protocol: Document 11/10/22 13:47 DCW (Rec: 11/10/22 14:30 DCW [id number]) Out-Patient Physical Therapy Visit Information Visit Information Visit Type Treatment Note Visit Start Time 13:47 Visit Stop Time 14:30 Total Visit Minutes 43 Visit Number 4 Number of ALUMNI RELATIONS OFFICER Visits 0 Evaluation Information Evaluation Date 10/23/22 PT-OP-B Current Condition Start: 10/23/22 14:32 Freq: Status: Active Protocol: Document 10/23/22 12:15 DCW (Rec: 10/23/22 14:43 DCW [id number]) Current Condition History of Current Condition Onset Date Eight months Current Complaints declining balance, falls History of Current Condition Pt is an 82 year old male presenting with a long- standing history of decreasing balance. Pt reports he has gotten worse since February, when he underwent a hiatal hernia surgery. Has recently fallen one time, reports he was walking around his bed and tripped on the sheets that were on the floor. Uses a cane when out on uneven surfaces or on hills, but typically does not use an AD. Has one level house, but no SUSAN. Treatment Goals Patient/Caregiver Goals Return to driving range, feel more stable on hills and walking in his yard PT-OP-C Subjective Start: 10/23/22 14:43 Freq: Status: Active Protocol: Document 11/10/22 13:47 DCW (Rec: 11/10/22 14:30 DCW [id number]) OP-PT Subjective Patient Comments Patient Comments Pt feeling pretty good today. PT-OP-D Balance Start: 10/23/22 14:32 Freq: Status: Active Protocol: Document 10/23/22 12:15 DCW (Rec: 10/23/22 14:43 DCW [id number]) Balance Tests Eagle Balance Test Eagle Balance Test Score 40/56 Eagle Impairment Rating 20 to 39% Impaired (Score 34- 44) Eagle Balance Assessment Evaluation Sitting to Standing Ability Independent w/Hands Unsupported Stance Safely- 2 minutes Sitting Unsupported, Feet on Floor Safely- 2 minutes Standing to Sitting Ability Assist, Control w/Hands Transfer Ability Safely, Hand Use Unsupported Stance- Eyes Closed Supervision, 10 seconds Unsupported Stance- Eyes Open Independent, <30 seconds Reaching Forward Standing Safely, 5 inches Pick- Up Object From Floor Independent/Safe Look Behind Shoulder - Standing Shifts Weight Unilateral Turning 360 Degrees Turns slowly, but safely Unsupported Stance, Alternating Feet on 4 Steps w/Supervision Stair Unsupported Tandem Stance Small Step- 30 seconds Unilateral Leg Stance Lifts Leg/Holds > 3 secs Total Score Eagle Total Score (out of 56 points) 40 Eagle Impairment Rating 20 to 39% Impaired (Score 34- 44) PT-OP-E Functional Tests Start: 10/23/22 14:32 Freq: Status: Active Protocol: Document 10/23/22 12:15 DCW (Rec: 10/23/22 14:43 DCW [id number]) Functional Tests Dynamic Gait Index (DGI) Score 18/24 DGI Impairment Rating 20 to <40% Impaired (Score 15- 19) Timed Up and Go (TUG) Score 13.99 Comments Three-trial average (14.8, 13. 66, 13.52) TUG Impairment Rating 40 to <60% Impaired (Score 14- 15) PT-OP-M Strength Start: 10/23/22 14:32 Freq: Status: Active Protocol: Document 10/23/22 12:15 DCW (Rec: 10/23/22 14:43 DCW [id number]) Hip Strength Hip Manual Muscle Testing Right Flexion (L2) 4+ Good+ Abduction 4+ Good+ Adduction 4+ Good+ Left Flexion (L2) 4+ Good+ Abduction 4+ Good+ Adduction 4+ Good+ Knee Strength Knee Manual Muscle Testing Right Flexion (S2) 4- Good- Extension (L3) 4+ Good+ Left Flexion (S2) 4+ Good+ Extension (L3) 4+ Good+ PT-OP-Q Treatments Start: 10/23/22 14:32 Freq: Status: Active Protocol: Document 11/10/22 13:47 DCW (Rec: 11/10/22 14:30 DCW [id number]) Gym Equipment Shuttle Recovery Unilateral Squats Details cued slow controlled pacing Resistance 50# Shuttle Recovery Platform Stable Reps/Time 2x10 Bilateral Squats Details cued slow controlled pacing Resistance 87# Shuttle Recovery Platform Stable Reps/Time 2x15 Therapeutic Exercises Sitting Exercises STS Sitting Exercise Name StS Equipment Used mesh chair Reps/Minutes x8 reps, x5 reps end tx Standing Exercises Hip Extension Standing Exercise Name Extension Side bilateral Resistance Green Other Exercises Resisted Ambulation Other Exercise Name Resisted side-stepping Resistance Green Neuro Re-Education Treatment Balance Activities Foam Stance Details EO/EC Surface Blue Foam Equipment // bars Tilt board Details DF/PF, Lateral tilt Equipment // bars Hurdles Details Hurdles/Foam Equipment // bars Comments Fwd, Side-stepping SLS Details SLS Surface Blue foam Equipment // bars Tandem Stance Details Tandem Stance Surface Green Foam Equipment // bars PT-OP-T Assessment and Plan Start: 10/23/22 14:32 Freq: Status: Active Protocol: Document 11/10/22 13:47 DCW (Rec: 11/10/22 14:30 DCW [id number]) Physical Therapy Assessment Impairments Impairments Activity Tolerance,Balance, Functional Activities, Functional Mobility,Strength, Transfers Goals Two Impairment Pt unable to participate in golf due to instability Custodial Goal (LTG) Pt to increase Eagle Balance score by at least 6 points to 46/56 in order to demonstrate a decreased falls risk to improve pt's ability to participate in outdoor hobbies . LTG Duration 12/24/22 One Impairment Pt does not have an appropriate home exercise program Short Term Goal (STG) Pt to be independent and compliant with an appropriate HEP 11/07/22: progressing: added HRTR, STS arms front/across chest hip hinge from chair, hip extension. STG Duration 11/23/22 progressing 11/07/22 Assessment Summary Assessment Pt very interested in advancing HEP, wants to work as much as possible independently at home. Pt tolerated treatment well today , appears to be doing better so far with sit<->stands and balance challenges. Physical Therapy Plan Frequency and Duration Frequency of Treatment 2x/Week Plan of Care Start Date 10/23/22 Plan of Care End Date 12/24/22 Therapeutic Interventions Therapeutic Interventions Balance Training,Gait Training ,Home Exercise Program,Manual Therapy,Neuromuscular Re- education,Patient/Caregiver Education,Self-Care/Home Management,Soft Tissue Mobilization,Therapeutic Activities,Therapeutic Exercises Next Visit Focus/Plan Next Note Type Treatment Note Next Visit Plan Review HEP: STS/hip hinge, HRTR, hip ext. POC: Balance training, LE strengthening
--- NOTE | 2022-12-04 10:28 | PT.OPDS ---
Current Diagnoses Other abnormalities of gait and mobility (11/10/22) History of falling (11/10/22) Visit Care Team Role Provider Type Zev Deshpande MD Attending Provider Physician Family Provider Primary Care Provider Referring Provider Specialty: Internal Medicine Address: [address] [place] [address], [address], [facility] Email: [email or web address] Visit Number Visit Number 4 Discharge Summary PT-OP-B Current Condition Start: 10/23/22 14:32 Freq: Status: Active Protocol: Document 10/23/22 12:15 DCW (Rec: 10/23/22 14:43 DCW [id number]) Current Condition History of Current Condition Onset Date Eight months Current Complaints declining balance, falls History of Current Condition Pt is an 82 year old male presenting with a long- standing history of decreasing balance. Pt reports he has gotten worse since February, when he underwent a hiatal hernia surgery. Has recently fallen one time, reports he was walking around his bed and tripped on the sheets that were on the floor. Uses a cane when out on uneven surfaces or on hills, but typically does not use an AD. Has one level house, but no SUSAN. Treatment Goals Patient/Caregiver Goals Return to driving range, feel more stable on hills and walking in his yard PT-OP-C Subjective Start: 10/23/22 14:43 Freq: Status: Active Protocol: Document 11/10/22 13:47 DCW (Rec: 11/10/22 14:30 DCW [id number]) OP-PT Subjective Patient Comments Patient Comments Pt feeling pretty good today. PT-OP-D Balance Start: 10/23/22 14:32 Freq: Status: Active Protocol: Document 10/23/22 12:15 DCW (Rec: 10/23/22 14:43 DCW [id number]) Balance Tests Eagle Balance Test Eagle Balance Test Score 40/56 Eagle Impairment Rating 20 to 39% Impaired (Score 34- 44) Eagle Balance Assessment Evaluation Sitting to Standing Ability Independent w/Hands Unsupported Stance Safely- 2 minutes Sitting Unsupported, Feet on Floor Safely- 2 minutes Standing to Sitting Ability Assist, Control w/Hands Transfer Ability Safely, Hand Use Unsupported Stance- Eyes Closed Supervision, 10 seconds Unsupported Stance- Eyes Open Independent, <30 seconds Reaching Forward Standing Safely, 5 inches Pick- Up Object From Floor Independent/Safe Look Behind Shoulder - Standing Shifts Weight Unilateral Turning 360 Degrees Turns slowly, but safely Unsupported Stance, Alternating Feet on 4 Steps w/Supervision Stair Unsupported Tandem Stance Small Step- 30 seconds Unilateral Leg Stance Lifts Leg/Holds > 3 secs Total Score Eagle Total Score (out of 56 points) 40 Eagle Impairment Rating 20 to 39% Impaired (Score 34- 44) PT-OP-E Functional Tests Start: 10/23/22 14:32 Freq: Status: Active Protocol: Document 10/23/22 12:15 DCW (Rec: 10/23/22 14:43 DCW [id number]) Functional Tests Dynamic Gait Index (DGI) Score 18/24 DGI Impairment Rating 20 to <40% Impaired (Score 15- 19) Timed Up and Go (TUG) Score 13.99 Comments Three-trial average (14.8, 13. 66, 13.52) TUG Impairment Rating 40 to <60% Impaired (Score 14- 15) PT-OP-M Strength Start: 10/23/22 14:32 Freq: Status: Active Protocol: Document 10/23/22 12:15 DCW (Rec: 10/23/22 14:43 DCW [id number]) Hip Strength Hip Manual Muscle Testing Right Flexion (L2) 4+ Good+ Abduction 4+ Good+ Adduction 4+ Good+ Left Flexion (L2) 4+ Good+ Abduction 4+ Good+ Adduction 4+ Good+ Knee Strength Knee Manual Muscle Testing Right Flexion (S2) 4- Good- Extension (L3) 4+ Good+ Left Flexion (S2) 4+ Good+ Extension (L3) 4+ Good+ PT-OP-T Assessment and Plan Start: 10/23/22 14:32 Freq: Status: Active Protocol: Document 12/04/22 10:27 DCW (Rec: 12/04/22 10:28 DCW [id number]) Physical Therapy Assessment Assessment Summary Assessment 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
== END 2022-12-06 12:24 | disposition home or self-care (01) ==
LOC: PHYS 13:45
PROVIDERS: Family Provider Student in an Organized Health Care Education/Training Program; PCP Student in an Organized Health Care Education/Training Program; Referring Provider Student in an Organized Health Care Education/Training Program; Visit Provider Student in an Organized Health Care Education/Training Program
DX: R26.89 Other abnormalities of gait and mobility (principal); Z91.81 History of falling
CPT/HCPCS: 97110; 97112; 97161; 97535

== ENCOUNTER → 2022-12-28 13:39 | Outpatient (CLI) | payer MEDICARE, SELFPAY ==
[2022-03-17 15:02] VITALS: BMI 26.5
--- NOTE | 2023-01-08 09:17 | P.HOLT.S_ITS ---
Brazing Machine Operator Automatic Report Referral & Results Date Patient Seen: 12/28/22 Requesting provider: Zev Deshpande Indication: Syncope Duration of monitoring (days): 3 Diary information: There were no patient events to review Data: Minimum heart rate identified was 40 beats per minute at 10:38 on 12/31/2022 Maximum sinus heart rate was 119 beats per minute at 09:31 on 12/29/2022 Maximum overall heart rate was 190 beats per minute at 14:07 on 12/28/2022 during a brief run of SVT Approximately 9.7% of identified beats were supraventricular ectopic in origin which would classify them as frequent Less than 1% of identified beats were ventricular ectopic in origin which classify them as rare There were 17 runs of SVT with the fastest being a 5 beat run as above at 190 beats per minute, the longest was also 5 beats in duration There were no pauses of 3 seconds or longer episodes of atrial fibrillation identified on this study Impression: 3+ day traffic monitor specialist demonstrating frequent PACs and very rare very brief runs of SVT No clear etiology for syncope identified on this study Clinical correlation suggested
== END ==
PROVIDERS: Family Provider Student in an Organized Health Care Education/Training Program; PCP Student in an Organized Health Care Education/Training Program; Referring Provider Student in an Organized Health Care Education/Training Program; Visit Provider Student in an Organized Health Care Education/Training Program
DX: I95.1 Orthostatic hypotension (principal)
CPT/HCPCS: 93242; 93244

== ENCOUNTER → 2023-01-08 12:31 | Outpatient (CLI) | payer MEDICARE, SELFPAY ==
[2022-03-17 15:02] VITALS: BMI 26.5
--- NOTE | 2023-01-08 12:33 | DI.ECHO.S_ITS ---
[facility] +---------+ : : [address] [place] : : : : [id number] : : : : Phone: [phone]+ Echocardiogram Report + + :Name: SYMONE DAHL Study Date: 01/08/2023 Height: 68.5 in: :[facility] ReadingLocation: Weight: 164 lb : : Gender: Male BSA: 1.9 m2 : :: 1940 Age: 82 yrs BP: 168/98 mmHg: :Reason For Study: PRESYNCOPE : :Ordering Physician: BUCK, : :JENN Performed By: Kay Noble : :Referring: JENN JANE : + + Interpretation Summary Normal both left and right ventricle size and function. The ejection fraction is 60-65%. No significant valvular abnormality. Comparison is made with the echocardiogram of 12/28/2021, there has been no significant change. Procedure: A two-dimensional transthoracic echocardiogram with color flow and Doppler was performed. The study quality was technically adequate. Comparison is made with the echocardiogram of 12/28/2021. The patient was in sinus rhythm with heart rates between 57-75 bpm during the exam. Left Ventricle: The left ventricle is normal in size and wall thickness. The ejection fraction is estimated to be 60-65%. There are no focal wall motion abnormalities. Right Ventricle: The right ventricle is normal in size and function. Atria: The left atrial size is normal. Right atrial size is normal. There is no Doppler evidence for an interatrial shunt. Mitral Valve: The mitral valve is normal in structure and function. There is trace mitral regurgitation. Aortic Valve: The aortic valve is trileaflet. The aortic valve opens well. There is no aortic valve stenosis. There is trace aortic regurgitation. Tricuspid Valve: The tricuspid valve is normal in structure and function. There is a trace or physiologic amount of tricuspid regurgitation. Pulmonary artery pressures cannot be estimated because of the lack of a measurable TR jet velocity. Pulmonic Valve: The pulmonic valve is not well visualized. There is no pulmonic valvular regurgitation. Great Vessels: The aortic root is normal size. The dimensions of the ascending aorta are normal. The inferior vena cava was not visualized. Pericardium/ Pleura There is no pericardial effusion. There is no pleural effusion. MMode/2D Measurements & Calculations LVIDd: 4.3 cm LVOT diam: 2.3 cm LVIDs: 2.8 cm Ao root diam: 3.3 cm FS: 35.3 % asc Aorta Diam: 3.7 cm IVSd: 0.91 cm Ao Arch Diam (Prox Trans): 3.0 cm LVPWd: 1.00 cm LV arriaga. diameter/BSA (cm/m^2): 2.3 LV sys. diameter/BSA (cm/m^2): 1.5 LA A2 area: 18.8 cm2 RA long axis: 5.4 cm LA A4 area: 16.1 cm2 RA area: 14.5 cm2 LA length (vol): 6.0 cm RA vol: 33.2 ml LA vol: 42.6 ml RA : 17.6 ml/m2 LA vol index: 22.5 ml/m2 RVD1 (basal): 3.2 cm RVD2 (mid): 2.6 cm TAPSE: 1.7 cm Doppler Measurements & Calculations Ao V2 max: 113.6 cm/sec LVOT Max Liam: 107.7 cm/sec Ao V2 mean: 76.7 cm/sec LV V1 max P.6 mmHg Ao max P.2 mmHg LV V1 VTI: 24.5 cm Ao mean P.6 mmHg SONA(I,D): 4.7 cm2 Ao V2 VTI: 22.5 cm SONA(V,D): 4.1 cm2 sev ratio: 1.1 SONA indexed to BSA (cm^2/m^2): 2.5 MV E max liam: 66.1 cm/sec PA V2 max: 76.3 cm/sec MV A max liam: 108.3 cm/sec PA V2 mean: 53.0 cm/sec MV E/A: 0.61 PA mean P.3 mmHg Med Peak E' Liam: 6.7 cm/sec PA pr(Accel): 36.2 mmHg E/E' med: 9.8 Lat Peak E' Liam: 7.4 cm/sec E/E' lat: 8.9 E/e' average: 9.4 MV dec time: 0.23 sec SV(LVOT): 105.1 ml Electronically signed by: Enedina Khalil on Reading Physician:01/08/2023 03:10 PM
== END ==
PROVIDERS: Family Provider Student in an Organized Health Care Education/Training Program; PCP Student in an Organized Health Care Education/Training Program; Referring Provider Student in an Organized Health Care Education/Training Program; Visit Provider Student in an Organized Health Care Education/Training Program
DX: I95.1 Orthostatic hypotension (principal); R55 Syncope and collapse
CPT/HCPCS: 93306

== ENCOUNTER → 2023-07-11 11:18 | Outpatient (CLI) | payer MEDICARE, SELFPAY ==
[2022-03-17 15:02] VITALS: BMI 26.5
[2023-07-11 12:15] LABS: Add Manual Diff / Slide Review NO; Basophils Absolute Auto 0 /uL (0-100); Basophils Percent Auto 0.5 % (0-2); Eosinophils Absolute Auto 100 /uL (0-450); Eosinophils Percent Auto 1.1 % (2-4); Hematocrit 37.1 % (41-53); Hemoglobin 12.8 g/dL (13.5-17.5); Lymphocytes Absolute Auto 1100 /uL (1100-4500); Lymphocytes Percent Auto 23.7 % (25-40); Mean Corpuscular HGB Conc 34.5 % (30-36); Mean Corpuscular Hemoglobin 31.9 PG (26-34); Mean Corpuscular Volume 92.5 fL (80-100); Monocytes Absolute Auto 300 /uL (0-900); Monocytes Percent Auto 7.6 % (3-14); Neutrophils Absolute Auto 3100 /uL (1500-7000); Neutrophils Percent Auto 67.1 % (50-75); Platelet Count 189 X10^3/uL (150-400); Red Blood Cell Count 4.01 X10^6/uL (4.5-5.9); Red Cell Distribution Width 14.2 % (11.6-14.8); White Blood Cell Count 4.6 X10^3/uL (4.5-11.0)
[2023-07-11 12:29] LABS: Alanine Aminotransferase 18 IU/L (<50); Albumin 3.7 g/dL (3.5-5.0); Albumin Globulin Ratio 1.3 (1.0-2.8); Alkaline Phosphatase 37 U/L (38-126); Aspartate Aminotransferase 29 IU/L (17-59); BUN Creatinine Ratio 20.2 (6-22); Bilirubin Total 0.7 mg/dL (0.2-1.3); Blood Urea Nitrogen 17 mg/dL (9-20); Calcium 8.4 mg/dL (8.4-10.2); Carbon Dioxide 28 mmol/L (22-32); Chloride 103 mmol/L (98-107); Cholesterol 143 mg/dL (140-199); Estimated Glomerular Filt Rate > 60 mL/min (>60); Globulin 2.9 g/dL (1.7-4.1); Glucose 89 mg/dL (80-110); HDL Cholesterol 54 mg/dL (40-60); HEMOLYSIS < 15 (0-50); LDL Cholesterol Calculated 79 mg/dL (<100); Sodium 138 mmol/L (137-145); Total Protein 6.6 g/dL (6.3-8.2); Triglycerides 49 mg/dL (35-150)
[2023-07-11 13:15] LABS: Appearance Urine UA CLEAR; Bilirubin Urine UA NEGATIVE (NEGATIVE); Color Urine UA YELLOW; Glucose Urine UA NEGATIVE (Negative); Ketones Urine UA NEGATIVE (NEGATIVE); Leukocyte Esterase Urine UA NEGATIVE (NEGATIVE); Nitrite Urine UA NEGATIVE (Negative); Occult Blood Urine UA NEGATIVE (Negative); Protein Urine UA NEGATIVE (Negative); Specific Gravity Urine UA 1.015 (1.000-1.035)
[2023-07-11 13:32] LABS: Bacteria Urine None Seen; Culture Indicated Urine Cult Not Indicated; RBC Urine None Seen (0-5/HPF); Squamous Epithelial Cell Urine None Seen (0-5/HPF); Urine Comments Microscopic Normal; WBC Urine None Seen (0-5/HPF)
== END ==
PROVIDERS: Family Provider Student in an Organized Health Care Education/Training Program; PCP Pediatrics; Referring Provider Pediatrics; Visit Provider Pediatrics
DX: E78.2 Mixed hyperlipidemia (principal); R73.09 Other abnormal glucose; I10 Essential (primary) hypertension
CPT/HCPCS: 36415; 80053; 80061; 81001; 83036; 85025

== ENCOUNTER 2023-11-25 15:09 | Emergency (ER) | payer MEDICARE, SELFPAY ==
[2022-03-17 15:02] VITALS: BMI 26.5
[2023-11-25] VITALS (10 sets, daily range): BP systolic 159–175; BP diastolic 76–80; PULSE 52–69; RESP 13–19; TEMP 37.1; O2SAT 93–100; BMI 25.8
[2023-11-25 15:19] LABS: Add Manual Diff / Slide Review NO; Basophils Absolute Auto 0 /uL (0-100); Basophils Percent Auto 0.6 % (0-2); Eosinophils Absolute Auto 0 /uL (0-450); Eosinophils Percent Auto 0.7 % (2-4); Hematocrit 34.6 % (41-53); Hemoglobin 11.7 g/dL (13.5-17.5); Lymphocytes Absolute Auto 1600 /uL (1100-4500); Lymphocytes Percent Auto 31.9 % (25-40); Mean Corpuscular HGB Conc 33.9 % (30-36); Mean Corpuscular Hemoglobin 31.8 PG (26-34); Mean Corpuscular Volume 94.1 fL (80-100); Monocytes Absolute Auto 400 /uL (0-900); Monocytes Percent Auto 6.8 % (3-14); Neutrophils Absolute Auto 3100 /uL (1500-7000); Platelet Count 182 X10^3/uL (150-400); Red Blood Cell Count 3.68 X10^6/uL (4.5-5.9); Red Cell Distribution Width 14.6 % (11.6-14.8); White Blood Cell Count 5.2 X10^3/uL (4.5-11.0)
[2023-11-25 15:31] LABS: Alanine Aminotransferase 18 IU/L (<50); Albumin 3.4 g/dL (3.5-5.0); Albumin Globulin Ratio 1.2 (1.0-2.8); Alkaline Phosphatase 31 U/L (38-126); Aspartate Aminotransferase 28 IU/L (17-59); BUN Creatinine Ratio 22.6 (6-22); Bilirubin Total 0.6 mg/dL (0.2-1.3); Blood Urea Nitrogen 21 mg/dL (9-20); Calcium 8.9 mg/dL (8.4-10.2); Carbon Dioxide 30 mmol/L (22-32); Chloride 102 mmol/L (98-107); Estimated Glomerular Filt Rate > 60 mL/min (>60); Globulin 2.9 g/dL (1.7-4.1); Glucose 113 mg/dL (80-110); HEMOLYSIS < 15 (0-50); Lipase 97 U/L (23-300); Potassium 3.8 mmol/L (3.4-5.1); Sodium 135 mmol/L (137-145); Total Protein 6.3 g/dL (6.3-8.2)
--- NOTE | 2023-11-25 15:34 | ED.GENADULT ---
HPI - General Adult General Chief complaint: Syncope Stated complaint: syncope Time Seen by Provider: 11/25/23 15:11 Source: patient Mode of arrival: EMS Limitations: no limitations History of Present Illness HPI narrative: Patient is an 83-year-old male who is brought in by EMS after having what appeared to be a syncopal episode at home. This was an unwitnessed fall however his was in the house with him. Apparently he was having a bowel movement when the event occurred. The patient does not remember the event. Does not remember any prodromal symptoms. He has not on anticoagulation. Did sustain a skin tear to his left elbow. Currently he states he just feels somewhat weak however no other extremity injuries or joint injuries. EMS reports that his initial blood pressure was 70 but after they set him up his blood pressure improved. He has had syncopal episodes in the past. Patient's medical problems shows he has a history of SVT however his at bedside states he has never had any abnormal heart rate/rhythms. Related Data Home Medications Medication Instructions Recorded Confirmed Vitamin C 1 tab PO DAILY 03/10/19 07/05/23 coQ10 (liposomal ubiquinol) 1 dose PO DAILY 03/10/19 07/05/23 multivitamin 1 tab PO DAILY 03/10/19 07/05/23 Previous Rx's Medication Instructions Recorded atorvastatin 20 mg tablet 20 mg PO BEDTIME #90 tabs 06/21/23 Allergies Allergy/AdvReac Type Severity Reaction Status Date / Time No Known Drug Allergies Allergy Unverified 07/05/23 15:26 Review of Systems Review of Systems ROS Unobtainable: All systems reviewed & are unremarkable except as noted in HPI and below Patient History Medical History Medicare annual wellness visit, subsequent Hyperlipidemia Mumps (~1945) Vertigo (~2017) Hearing loss GERD (gastroesophageal reflux disease) Syncope Hypertension Surgical History History of repair of hiatal hernia Anesthesia History of hernia surgery (~1971) History of knee surgery (~1969) Family History Mother Brain aneurysm Social History household members: spouse, family and children Smoking Status: Former smoker alcohol intake: current Smoking Status: Former smoker alcohol intake frequency: a few times a week Substance Use Type: does not use Exam Initial Vital Signs Initial Vital Signs: Vital Signs Blood Pressure 167/79 H 11/25/23 15:12 Const General: cooperative, comfortable and No ill appearing HENMT HENMT Other: Small skin tear behind left ear Resp Effort & Inspection: normal respiratory effort Auscultation: clear to auscultation bilaterally Cardio Rate: regular rate Rhythm: regular rhythm GI Inspection: normal to inspection and non-distended Palpation: soft, No firm, No guarding and No tender Skin Other: Small skin tear behind left ear. Small skin tear to left elbow Neuro General: patient alert, patient awake and moves all extremities Speech: speech normal Other: Patient is alert to person and place but does not remember the event. He does not know the year. Extrem Other: Pelvis is stable. No joint discomfort. No gross deformities. Scores [place] CT Head Rule Age <16 years old: No Patient on blood thinners: No Seizure after injury: No Exclusion: Patient NOT Excluded, Proceed to next steps GCS < 15 at 2 hr post trauma: No Suspected open or depressed skull fracture: No Any sign of basilar skull fracture (hemotympanum, raccoon eyes, Winslow's sign, CSF forest-/rhinorrhea): No Two or more episodes of vomiting: No Age greater or equal to 65 years: Yes Retrograde amnesia to the event greater or equal to 30 min: Yes Dangerous Mechanism (pedestrian vs. mv, occupant ejected from mv, fall from >3 ft or > 5 stairs): No Recommendation: Consider CT. The [place] Head CT Rule cannot rule out need for Imaging. GCS Gurpreet coma scale eye opening: Spontaneous Gurpreet coma scale verbal response: Confused Gazelle coma scale motor response: Obey commands Gurpreet coma scale total score: 14 Nexus Score for C-Spine Focal Neurologic deficit present: No Midline spinal tenderness present: No Altered level of conciousness present: Yes Intoxication present: No Distracting Injury Present: No Nexus Criteria for C-spine: 1 Course Orders Ordered: ED Orders 11/25/23 15:11 Complete Blood Count AUTO DIFF Stat Comprehensive Metabolic Panel Stat Lipase Stat 11/25/23 15:12 EKG-12 Lead Stat 11/25/23 15:34 CT cervical spine wo con Stat CT head/brain wo con Stat Discontinued Medications Bacitracin (Bacitracin Oint 0.9 Gm Pckt) 1 applic TOP NOW ONE Stop: 11/25/23 15:49 Last Admin: 11/25/23 16:41 Dose: 1 applic Documented By: CTS Vital Signs Vital signs: Vital Signs - 8 hr 11/25/23 15:12 11/25/23 15:13 11/25/23 15:14 Temperature 98.7 F Pulse Rate 64 67 Respiratory Rate 13 16 Blood Pressure 167/79 H 167/79 H Pulse Oximetry 100 99 Oxygen Delivery Method Room Air 11/25/23 15:30 11/25/23 15:30 11/25/23 16:00 Temperature Pulse Rate 67 67 Respiratory Rate 16 19 Blood Pressure 159/77 H Pulse Oximetry 99 98 Oxygen Delivery Method Room Air 11/25/23 16:30 Temperature Pulse Rate 65 Respiratory Rate 15 Blood Pressure Pulse Oximetry 99 Oxygen Delivery Method Medical Decision Making Lab Data Lab results reviewed: Yes I reviewed the patient's lab results. 11/25/23 15:11 11/25/23 15:11 Labs: Lab Results 11/25/23 Range/Units 15:11 WBC 5.2 (4.5-11.0) X10^3/uL RBC 3.68 L (4.5-5.9) X10^6/uL Hgb 11.7 L (13.5-17.5) g/dL Hct 34.6 L (41-53) % MCV 94.1 (80-100) fL MCH 31.8 (26-34) PG MCHC 33.9 (30-36) % RDW 14.6 (11.6-14.8) % Plt Count 182 (150-400) X10^3/uL Neut % (Auto) 60.0 (50-75) % Lymph % (Auto) 31.9 (25-40) % Deuel % (Auto) 6.8 (3-14) % Eos % (Auto) 0.7 L (2-4) % Baso % (Auto) 0.6 (0-2) % Neut # (Auto) 3100 (6398-7374) /uL Lymph # (Auto) 1600 (0164-0891) /uL Deuel # (Auto) 400 (0-900) /uL Eos # (Auto) 0 (0-450) /uL Baso # (Auto) 0 (0-100) /uL Sodium 135 L (137-145) mmol/L Potassium 3.8 (3.4-5.1) mmol/L Chloride 102 (98-107) mmol/L Carbon Dioxide 30 (22-32) mmol/L BUN 21 H (9-20) mg/dL Creatinine 0.93 (0.66-1.25) mg/dL Estimated GFR > 60 (>60) mL/min BUN/Creatinine Ratio 22.6 H (6-22) Glucose 113 H (80-110) mg/dL Calcium 8.9 (8.4-10.2) mg/dL Total Bilirubin 0.6 (0.2-1.3) mg/dL AST 28 (17-59) IU/L ALT 18 (<50) IU/L Alkaline Phosphatase 31 L (38-126) U/L Total Protein 6.3 (6.3-8.2) g/dL Albumin 3.4 L (3.5-5.0) g/dL Globulin 2.9 (1.7-4.1) g/dL Albumin/Globulin Ratio 1.2 (1.0-2.8) Lipase 97 (23-300) U/L Point of Care Testing Glucose POC 116 Point of care testing: Point of Care Testing Glucose POC [address] scan - head: Radiologist's Impression: PROCEDURE: CT HEAD/BRAIN WO CON INDICATIONS: syncope with retrograde amnesia TECHNIQUE: Noncontrast 4.5 mm thick angled axial sections acquired from the foramen magnum to the vertex, with coronal and sagittal reformats. For radiation dose reduction, the following was used: automated exposure control, adjustment of mA and/or kV according to patient size. COMPARISON: [facility], CT, CT HEAD/BRAIN WO CON, 11/29/2018, 20:44. FINDINGS: Image quality: Motion artifact degrades evaluation of the skull base. CSF spaces: Basal cisterns are patent. No extra-axial fluid collections. Ventricles are normal in size and shape. Brain: No midline shift. No intracranial masses or hemorrhage. Crowe-white matter interface is normal. Diffuse parenchymal volume loss with expansion CSF containing spaces. Periventricular white matter hypodensities consistent with chronic microvascular ischemic disease. Skull and face: Calvarium and visualized facial bones are intact, without suspicious lesions. Sinuses: Visualized sinuses and mastoids are clear. IMPRESSION: No acute intracranial pathology. Sequela of chronic microvascular ischemic disease. CT - cervical spine: Radiologist's Impression: PROCEDURE: CT CERVICAL SPINE WO CON INDICATIONS: Fall with an injury TECHNIQUE: Noncontrast 3 mm thick sections acquired from the skull base to the T4 level. Sagittal and coronal reformats were then constructed. For radiation dose reduction, the following was used: automated exposure control, adjustment of mA and/or kV according to patient size. COMPARISON: None. FINDINGS: Image quality: Excellent. Bones: No fractures or dislocations. Visualized superior ribs are intact. Soft tissues: Prevertebral soft tissues are normal in thickness. No paravertebral hematomas. No apical pneumothoraces. IMPRESSION: No displaced fracture or traumatic subluxation. ECG Data Attestation: I personally reviewed and interpreted this ECG as follows: Interpretation: Sinus rhythm Ventricular rate is 61 Normal axis Normal QRS Normal QTC First-degree AV block pr interval 216 milliseconds Normal QTC No ST T wave changes MDM Narrative Medical decision making narrative: Head CT and cervical spine CT are unremarkable. EKGs unremarkable. Labs are unremarkable. He was able to ambulate to the bathroom with a walker. He states he still feels somewhat unsteady on his feet but much better. Has had a normal rate and rhythm here in the ER. It is sinus rhythm. Has not been hypotensive. Had a long discussion with the patient and family regarding his symptoms. I have low suspicion for seizure. This could potentially have been a vagal response as he states he was straining for having the bowel movement however we also discussed the possibility of a transient arrhythmia. Will discharge patient home with instructions to follow-up with his primary care doctor to discuss the indications for Holter monitor. We discussed the importance of avoiding falling. They were given return precautions. They expressed understanding and agreement. Discharge Plan Departure Patient Disposition: Home Clinical Impression: Syncope Instructions: DI for Syncope in Adults (Fainting) Activity Restrictions/Additional Instructions: Continue to take all of your medications as directed. It is also important that you take care to avoid falling at home. Contact your primary care doctor for follow-up to discuss the indications for a Holter monitor. Return to the emergency department for new or worsening symptoms. Prescriptions: No Action atorvastatin 20 mg tablet 20 mg PO BEDTIME Qty: 90 1RF Rx Instructions: APPT DUE WITH DR. ALFARO AND/OR [facility] W/NEW PCP PRIOR TO END OF SCRIPT/FUTURE FILLS. THANK YOU 06/21/23. multivitamin Tablet,Chewable 1 tab PO DAILY Patient Comments: adult gummy Vitamin C 1 tab PO DAILY coQ10 (liposomal ubiquinol) 1 dose PO DAILY Referrals: Olman Alfaro MD [Primary Care Provider] - Stand Alone Forms: Patient Portal/API
--- NOTE | 2023-11-25 15:43 | PC.NURSE ---
Pt does not recall exactly what happened, as he remembers eating breakfast this morning and not eating lunch. CBG 116 at triage. Pt unable to say what year it is and states he is 82 years old. Pt alert to self and birthdate. His and son arrived at bedside. Pt speaking clearly, denies having any pain, SOB, or lightheaded. He reports neck stiffness and has a laceration behind his left ear with controlled bleeding and skin tear on his left forearm. He denies head pain. Pt states he would usually know what year it is. Pt's states she heard him fall about 3 and a half hours ago. Son at bedside states theres no way it was that long ago. states pt is acting more like himself now and was disoriented after the fall.
--- NOTE | 2023-11-25 16:09 | PC.NURSE ---
PT reports stinging pain during wound cleansing to his left ear and left forearm. Denies pain after cleaning.
[2023-11-25] MEDS: BACITRACIN OINT 0.9 GM PCKT 1 APPLIC TOP (16:41)
--- NOTE | 2023-11-25 16:59 | PC.NURSE ---
Pt wound on his left forearm closed with steri strips and glue adhesive, bandaged with nonabsorbant dressing and gentle border pink dressing. Left ear did not require dressing.
== END 2023-11-25 18:21 | disposition home or self-care (01) ==
PROVIDERS: Emergency Provider Emergency Medicine; Family Provider Student in an Organized Health Care Education/Training Program; PCP Pediatrics
DX: R55 Syncope and collapse (principal); I95.9 Hypotension, unspecified; M54.2 Cervicalgia; R41.2 Retrograde amnesia; W18.30XA Fall on same level, unspecified, initial encounter
CPT/HCPCS: 36415; 70450; 72125; 80053; 83690; 85025; 93005; 93010; 99283; 99284

== ENCOUNTER → 2023-12-13 14:45 | Outpatient (CLI) | payer MEDICARE, SELFPAY ==
[2022-03-17 15:02] VITALS: BMI 26.5
--- NOTE | 2023-12-13 | DI.US.S_ITS ---
PROCEDURE: US RENAL COMPLETE INDICATIONS: BLADDER WALL THICKENING TECHNIQUE: Real-time scanning was performed of the kidneys and bladder, with image documentation. COMPARISON: [facility], CT, CT ANGIO CHEST ABDOMEN PELVIS, 12/25/2021, 21:45. [facility], CT, CT ANGIO CHEST ABDOMEN PELVIS, 11/29/2018, 20:46. FINDINGS: Kidneys: Kidneys are normal in size. Right kidney measures 9.7 cm long; left kidney measures 9.4 cm long. Right renal cortical thickness is 1.1 cm; left renal cortical thickness is 1.2 cm. Renal cortical echotexture is normal. No hydronephrosis. Punctate nonobstructing calcification present in the right kidney. No suspicious solid mass lesions. Bladder: Pre-void bladder volume is 59 mL. Post-void not measured.. Pre-void images demonstrate no intraluminal masses or stones. On pre-void images, pleural lateral ureteral jets are noted with color Doppler interrogation. (Of note, ureteral jets may not be detectable in up to 25% of cases due to insufficient differences in specific gravity between ureteral and bladder urine). Miscellaneous: No free pelvic fluid. Prostate gland measures 5.0 x 4.8 x 4.0 cm. IMPRESSION: Nonobstructing right renal calculus. Dictated by: Beatris Magana M.D. on 12/13/2023 at 17:19 Approved by: Beatris Magana M.D. on 12/13/2023 at 17:20
--- NOTE | 2023-12-13 14:50 | DI.CT.S_ITS ---
PROCEDURE: CT CHEST WO CON INDICATIONS: Prior CTA noted lung nodules wo follow-up TECHNIQUE: Noncontrast 2.0-2.5 mm thick sections acquired from the pulmonary apices to the posterior costophrenic angles. 7 mm thick axial MIP and 5 mm coronal and sagittal reformats were then acquired. For radiation dose reduction, the following was used: automated exposure control, adjustment of mA and/or kV according to patient size. COMPARISON: [facility], CT, CT ANGIO CHEST ABDOMEN PELVIS, 11/29/2018, 20:46. [facility], CT, CT ANGIO CHEST PE PROTOCOL, 12/25/2021, 21:45. FINDINGS: Image quality: Diagnostic. Lower Neck: No enlarged lymph nodes. Thyroid: No thyroid nodules which require sonographic follow up, per consensus guidelines. Axillae: No enlarged lymph nodes. Chest Wall: Unremarkable. Bones: Unremarkable. Lungs and Pleura: No pneumothorax or pleural effusions. There is a stable 5 mm pulmonary nodule in the right middle lobe unchanged from the study dated November 29, 2018 (series 2/image 45). No consolidation or suspicious nodules. Heart: Heart size is normal. No pericardial effusion. Thoracic Vessels: The aorta and pulmonary arteries demonstrate normal size. Scattered atheromatous calcifications are present within the aortic arch. Mediastinum and Sofia: No enlarged lymph nodes. Esophagus: No wall thickening. There is a small hiatal hernia. Upper Abdomen: Visualized upper abdomen solid organs and bowel loops appear normal. IMPRESSION: 1. No acute airspace opacities. No new pulmonary nodules which require follow-up. Fleischner Society criteria for SOLID lung nodule followup. Nodule size (mm)Low-risk patientHigh-risk patient<6 (single or multiple)No routine followup.Optional CT at 12 months. 6-8 (single or multiple)CT at 6-12 months, then optional CT at 18-24 mo.CT at 6-12 months, then CT at 18-24 months. >8 (single)CT at 3 months, PET-CT, or biopsy. Same as for low-risk pts. >8 (multiple)CT at 3-6 months, then optional CT at 18-24 mo.CT at 3-6 months, then CT at 18-24 months. Fleischner Society criteria for SUB-SOLID lung nodule followup. Solitary pure ground-glass nodules<6 mm (ground glass or part solid)No followup needed. 6 mm or larger (ground glass)CT at 6-12 months to confirm persistence, then CT every 2 years until 5 years.6 mm or larger (part solid)CT at 3-6 months to confirm persistence, then annual CT until 5 years if unchanged and solid component remains <6 mm. Multiple sub-solid nodules<6 mmCT at 3-6 months, then CT consider at 2 & 4 years for high risk patients. [address] at 3-6 months. Subsequent management based on most suspicious lesions. Recommendations do not apply to lung cancer screening, patients with immunosuppression, or patients with known primary cancer. Dictated by: Aranza Colvin M.D. on 12/13/2023 at 15:26 Approved by: Aranza Colvin M.D. on 12/13/2023 at 15:40
== END ==
PROVIDERS: Family Provider Student in an Organized Health Care Education/Training Program; PCP Family Medicine; Referring Provider Family Medicine; Visit Provider Family Medicine
DX: R91.1 Solitary pulmonary nodule (principal); Z87.891 Personal history of nicotine dependence; K44.9 Diaphragmatic hernia without obstruction or gangrene; N32.89 Other specified disorders of bladder; N40.0 Benign prostatic hyperplasia without lower urinary tract symptoms
CPT/HCPCS: 71250; 76770

== ENCOUNTER → 2024-06-05 13:11 | Outpatient (CLI) | payer MEDICARE, SELFPAY ==
[2022-03-17 15:02] VITALS: BMI 26.5
[2024-06-05 13:42] LABS: Add Manual Diff / Slide Review NO; Basophils Absolute Auto 0 /uL (0-100); Basophils Percent Auto 0.7 % (0-2); Eosinophils Absolute Auto 0 /uL (0-450); Eosinophils Percent Auto 0.8 % (2-4); Hematocrit 37.6 % (41-53); Hemoglobin 12.7 g/dL (13.5-17.5); Lymphocytes Absolute Auto 1000 /uL (1100-4500); Lymphocytes Percent Auto 22.1 % (25-40); Mean Corpuscular HGB Conc 33.8 % (30-36); Mean Corpuscular Volume 94.7 fL (80-100); Monocytes Absolute Auto 300 /uL (0-900); Monocytes Percent Auto 7.1 % (3-14); Neutrophils Absolute Auto 3200 /uL (1500-7000); Neutrophils Percent Auto 69.3 % (50-75); Platelet Count 200 X10^3/uL (150-400); Red Blood Cell Count 3.97 X10^6/uL (4.5-5.9); Red Cell Distribution Width 14.1 % (11.6-14.8); White Blood Cell Count 4.6 X10^3/uL (4.5-11.0)
[2024-06-05 14:18] LABS: HEMOLYSIS < 15 (0-50); Iron 103 ug/dL (49-181)
[2024-06-05 14:33] LABS: Percent Iron Saturation 41 % (20-50); Total Iron Binding Capacity 249 ug/dL (261-462); Transferrin 175 mg/dL (206-381)
== END ==
PROVIDERS: Family Provider Student in an Organized Health Care Education/Training Program; PCP Family Medicine; Referring Provider Family Medicine; Visit Provider Family Medicine
DX: D64.9 Anemia, unspecified (principal); I95.1 Orthostatic hypotension; Z86.39 Personal history of other endocrine, nutritional and metabolic disease
CPT/HCPCS: 36415; 83540; 83550; 85025

== ENCOUNTER → 2024-06-25 14:10 | Outpatient (CLI) | payer MEDICARE, SELFPAY ==
[2022-03-17 15:02] VITALS: BMI 26.5
--- NOTE | 2024-06-25 14:11 | DI.US.S_ITS ---
PROCEDURE: US PELVIC LIMITED INDICATIONS: hx of prior bladder thickening, hx of tobacco use TECHNIQUE: Real-time transabdominal scanning was performed of the urinary bladder, with image documentation. COMPARISON: None. FINDINGS: The wall of the urinary bladder is thickened measuring to 0.9 centimeters. No ureteral jets were observed. Prevoid and postvoid volumes could not be calculated as the patient voided 20 minutes prior to the exam IMPRESSION: The urinary bladder wall is thickened. Differential diagnoses include under distension, cystitis or outlet obstruction from an enlarged prostate gland. Dictated by: Ladarius Gonzalez M.D. on 06/26/2024 at 8:57 Approved by: Ladarius Gonzalez M.D. on 06/26/2024 at 9:01
== END ==
PROVIDERS: Family Provider Student in an Organized Health Care Education/Training Program; PCP Family Medicine; Referring Provider Family Medicine; Visit Provider Family Medicine
DX: N32.89 Other specified disorders of bladder (principal); Z87.891 Personal history of nicotine dependence
CPT/HCPCS: 76857

== ENCOUNTER 2024-08-17 14:05 | Emergency (ER) | payer MEDICARE, SELFPAY ==
[2022-03-17 15:02] VITALS: BMI 26.5
[2024-08-17] VITALS (9 sets, daily range): BP systolic 162–185; BP diastolic 77–90; PULSE 59–70; RESP 18–24; TEMP 36.5; O2SAT 96–99
--- NOTE | 2024-08-17 14:07 | DI.CT.S_ITS ---
PROCEDURE: CT ANGIO HEAD AND NECK INDICATIONS: left facial droop fall TECHNIQUE: After the administration of intravenous contrast, 1 mm thick sections acquired from the aortic arch through the [place]. MIP reformats of the arterial vasculature were utilized. For radiation dose reduction, the following was used: automated exposure control, adjustment of mA and/or kV according to patient size. COMPARISON: None. FINDINGS: Image quality: Study is limited by motion artifact at the skull base Cerebral CT Angiogram: Internal carotid arteries: Limited but patent. Anterior cerebral arteries: Limited. Distal vasculature patent. Middle cerebral arteries: Limited. Distal vasculature patent. Posterior cerebral arteries: Nonvisualized Basilar artery: Patent proximally Vertebral arteries: V3 segment limited bilaterally Dural venous sinuses: Unremarkable given phase of enhancement. Other: Arterial phase brain parenchyma is unremarkable. Neck CT Angiogram: Internal carotid arteries: Unremarkable. No significant stenosis. No dissection or occlusion. Common carotid arteries: Unremarkable. No significant stenosis. No dissection or occlusion. External carotid arteries: Unremarkable. No occlusion. Vertebral arteries: Unremarkable. No significant stenosis. No dissection or occlusion. Other: None. Aortic Arch and Mediastinum: Partially visualized aortic arch unremarkable without evidence of aneurysm. Origins of the great vessels unremarkable. IMPRESSION: Study is significantly limited at the skull base by motion artifact. Distal intracranial vasculature is patent nevertheless. Bilateral proximal ICA widely patent. Any quantitative measurements of stenosis were performed using NASCET criteria. Approved by: Stan Donis M.D. on 08/17/2024 at 13:50
--- NOTE | 2024-08-17 14:07 | DI.CT.S_ITS ---
PROCEDURE: CT STROKE INDICATIONS: fall laeft facial droop TECHNIQUE: Noncontrast 4.5 mm thick angled axial sections acquired from the foramen magnum to the vertex, with coronal reformats. For radiation dose reduction, the following was used: automated exposure control, adjustment of mA and/or kV according to patient size. COMPARISON: [facility], CT, CT ANGIO HEAD AND NECK, 08/17/2024, 14:12. FINDINGS: Image quality: Diagnostic. CSF spaces: Basal cisterns are patent. No extra-axial fluid collections. Ventricles are normal in size and shape. Brain: No midline shift. No intracranial masses or hemorrhage. Crowe-white matter interface is normal. Moderate cerebral and cerebellar volume loss with multifocal white matter chronic ischemic change noted. Atherosclerotic calcification noted associated with cavernous segments of both internal carotid arteries. Skull and face: Calvarium and visualized facial bones are intact, without suspicious lesions. Sinuses: Visualized sinuses and mastoids are clear. IMPRESSION: Atrophy and chronic ischemic change without intracranial hemorrhage or mass effect. Note: Critical results were discussed with Dr. Wright at 01:34 PM [place] time on 08/17/24 Approved by: Stan Donis M.D. on 08/17/2024 at 13:35
[2024-08-17 14:28] LABS: Add Manual Diff / Slide Review NO; Basophils Absolute Auto 0 /uL (0-100); Basophils Percent Auto 0.5 % (0-2); Eosinophils Absolute Auto 100 /uL (0-450); Eosinophils Percent Auto 1.1 % (2-4); Hematocrit 30.8 % (41-53); Hemoglobin 10.7 g/dL (13.5-17.5); Lymphocytes Absolute Auto 1600 /uL (1100-4500); Lymphocytes Percent Auto 31.6 % (25-40); Mean Corpuscular HGB Conc 34.6 % (30-36); Mean Corpuscular Hemoglobin 32.3 PG (26-34); Mean Corpuscular Volume 93.4 fL (80-100); Monocytes Absolute Auto 400 /uL (0-900); Monocytes Percent Auto 8.5 % (3-14); Neutrophils Absolute Auto 3000 /uL (1500-7000); Neutrophils Percent Auto 58.3 % (50-75); Platelet Count 160 X10^3/uL (150-400); Red Cell Distribution Width 14.5 % (11.6-14.8); White Blood Cell Count 5.1 X10^3/uL (4.5-11.0)
--- NOTE | 2024-08-17 14:31 | DI.RAD.S_ITS ---
PROCEDURE: XR SHOULDER LT MIN 2V INDICATIONS: left shoulder deformity TECHNIQUE: 3 views of the shoulder were acquired. COMPARISON: None. FINDINGS: Bones: No fractures or dislocations. No suspicious bony lesions. Visualized ribs appear intact. Soft tissues: No suspicious soft tissue calcifications. IMPRESSION: Degenerative acromioclavicular arthritic changes noted Approved by: Stan Donis M.D. on 08/17/2024 at 14:44
--- NOTE | 2024-08-17 14:32 | PC.NURSE ---
Pt verbalized left facial numbness while in the ambulance. 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
--- NOTE | 2024-08-17 14:36 | EKG_ITS ---
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
[2024-08-17 14:40] LABS: INR 1.1 (0.9-1.3)
[2024-08-17 14:43] LABS: PTT Partial Thromboplastin Tim 29 SECONDS (25.1-36.5)
[2024-08-17 14:44] LABS: Alanine Aminotransferase 16 IU/L (<50); Albumin 2.9 g/dL (3.5-5.0); Albumin Globulin Ratio 1.2 (1.0-2.8); Alkaline Phosphatase 32 U/L (38-126); Aspartate Aminotransferase 24 IU/L (17-59); BUN Creatinine Ratio 19.5 (6-22); Bilirubin Total 0.5 mg/dL (0.2-1.3); Blood Urea Nitrogen 17 mg/dL (9-20); Calcium 8.1 mg/dL (8.4-10.2); Carbon Dioxide 27 mmol/L (22-32); Chloride 104 mmol/L (98-107); Creatine Kinase 51 U/L (55-170); Estimated Glomerular Filt Rate > 60 mL/min (>60); Ethanol (ETOH) < 10 mg/dL; Globulin 2.5 g/dL (1.7-4.1); Glucose 94 mg/dL (80-110); HEMOLYSIS < 15 (0-50); Potassium 3.8 mmol/L (3.4-5.1); Sodium 134 mmol/L (137-145); Total Protein 5.4 g/dL (6.3-8.2)
[2024-08-17 14:56] LABS: Troponin I < 0.012 ng/mL (0.01-0.034)
[2024-08-17 15:05] LABS: COVID19 -Nasal RAPID Negative (Negative)
[2024-08-17 15:29] LABS: Ur Creatinine Normal (Normal); Ur Specific Gravity Normal (Normal); Urine pH Normal (Normal)
[2024-08-17 15:30] LABS: Urine Amphetamines Negative (Negative); Urine Barbiturates Negative (Negative); Urine Benzodiazepines Negative (Negative); Urine Cocaine Negative (Negative); Urine MDMA Negative (Negative); Urine Methadone Negative (Negative); Urine Methamphetamines Negative (Negative); Urine Opiates Positive (Negative); Urine Oxycodone Negative (Negative); Urine Phencyclidine Negative (Negative); Urine THC Negative (Negative); Urine Tricyclic Antidepressant Negative (Negative)
[2024-08-17 15:32] LABS: Appearance Urine UA CLEAR; Bilirubin Urine UA NEGATIVE (NEGATIVE); Color Urine UA YELLOW; Glucose Urine UA NEGATIVE (Negative); Ketones Urine UA NEGATIVE (NEGATIVE); Leukocyte Esterase Urine UA NEGATIVE (NEGATIVE); Nitrite Urine UA NEGATIVE (Negative); Occult Blood Urine UA NEGATIVE (Negative); Protein Urine UA NEGATIVE (Negative); Urobilinogen Urine UA 0.2 E.U./dL (0.2); pH Urine UA 7.5 (4.5-8.0)
[2024-08-17 15:47] LABS: Bacteria Urine None Seen; Culture Indicated Urine Cult Not Indicated; RBC Urine None Seen (0-5/HPF); Squamous Epithelial Cell Urine None Seen (0-5/HPF); Urine Volume 10mL (spun); WBC Urine None Seen (0-5/HPF)
--- NOTE | 2024-08-17 15:50 | ED.FALL ---
HPI - Fall General Chief Complaint: Fall Stated Complaint: Fall/Code Stroke Time Seen by Provider: 08/17/24 14:07 Source: patient and EMS Mode of arrival: EMS History of Present Illness HPI Narrative: Patient 83 year old male history of hyperlipidemia previous syncopal episodes presenting to day as a code stroke. He reports he was walking into the laundry room when he twisted he thinks he had pain but landed right on the floor. He did hit his head. Did not lose consciousness no neck pain. EMS arrived not on anticoagulation or antiplatelet medication. They noticed that he was hypotensive with a blood pressure in the 60s which quickly resolved. He was moving all extremities by the time they got him back into the ambulance they noticed significant left facial droop and patient reported left facial numbness. At the time of ED arrival symptoms completely resolved. He had no weakness and symptoms lasted less than 10. Related Data Home Medications Medication Instructions Recorded Confirmed Vitamin C 1 tab PO DAILY 03/10/19 12/06/23 coQ10 (liposomal ubiquinol) 1 dose PO DAILY 03/10/19 12/06/23 multivitamin 1 tab PO DAILY 03/10/19 12/06/23 Previous Rx's Medication Instructions Recorded DISABLED PARKING PERMIT #1 ea 12/06/23 atorvastatin 20 mg tablet 20 mg PO BEDTIME #90 tabs 06/18/24 Allergies Allergy/AdvReac Type Severity Reaction Status Date / Time No Known Drug Allergies Allergy Verified 08/17/24 18:53 Patient History Medical History (Updated 08/17/24 @ 17:07 by Joann Wright DO) Syncope Hyperlipidemia Mumps (~1945) Vertigo (~2017) Hearing loss GERD (gastroesophageal reflux disease) Syncope Hypertension Surgical History History of repair of hiatal hernia Anesthesia History of hernia surgery (~1971) History of knee surgery (~1969) Family History Mother Brain aneurysm Social History household members: spouse, family and children Smoking Status: Former smoker alcohol intake: current Smoking Status: Former smoker alcohol intake frequency: a few times a week Substance Use Type: does not use Exam Initial Vital Signs Initial Vital Signs: Vital Signs Temperature 97.7 F 08/17/24 14:33 Pulse Rate 60 08/17/24 14:33 Respiratory Rate 18 08/17/24 14:33 Blood Pressure 162/77 H 08/17/24 14:33 Pulse Oximetry 97 08/17/24 14:33 Oxygen Delivery Method Room Air 08/17/24 14:33 GENERAL: Alert pleasant 83-year-old male s. HEENT: Head atraumatic,EOMI, pupils reactive, face symmetric, moist mucous membranes CARDIOVASCULAR: Regular rate and rhythm without murmurs, rubs or gallops. RESPIRATORY: Breath sounds equal bilaterally, no wheezes rales or rhonchi. ABDOMEN: Soft, nontender. Normoactive bowel sounds all 4 quadrants. No guarding or rebound. EXTREMITIES: Normal range of motion, no clubbing or edema. Neurovascularly intact Left upper extremity is nontender humerus intact he is pointing to the acromioclavicular joint or hurts. When he pushes down the clavicle does pop up but then reduces. Sensation over humerus intact he has a very small skin tear distal radial pulse intact he actually is full range of motion of his shoulder without issue NEUROLOGICAL: Alert and oriented x4.Normal gait and speech. Cranial nerves II through XII grossly intact. Good [id number], good [id number], strength equal bilaterally, no dysarthria or aphasia, sensation in tact to soft touch bilaterally, no visual changes, no facial droop SKIN: Warm, dry, no laceration, no petechiae, no rashes or lesions. Scores NIH Stroke Scale Level of Conciousness: Alert, keenly responsive Ask month/age: Answers both questions correctly. Open/close eyes, close hand: Performs both tasks correctly Best gaze horizontal: Normal Visual dangelo: No visual loss Facial palsy: Normal symetrical movement Left arm drift: No drift for full 10 sec Right arm drift: No drift for full 10 sec Left leg drift: No drift for full 5 sec Right leg drift: No drift for full 5 sec Limb ataxia: Absent Sensory on face/arms/legs: Normal, no sensory loss Best language: No aphasia, normal Dysarthria: Normal Extinction or inattention: No abnormality Total NIH Stroke scale score: 0 Course Orders Ordered: ED Orders 08/17/24 14:[address] angio head and neck Stat 08/17/24 14:08 EKG-12 Lead Stat 08/17/24 14:23 Complete Blood Count AUTO DIFF Stat Comprehensive Metabolic Panel Stat Ethanol (ETOH) Stat PTT Partial Thromboplastin Wilfrido Stat Prothrombin Time INR Stat Troponin & CK Cardiac Panel Stat 08/17/24 14:31 XR shoulder LT min 2V Stat 08/17/24 14:37 COVID19 -Nasal RAPID Stat 08/17/24 15:10 Urinalysis and Microscopic Stat Urine Drug Screen, Rapid Stat Discontinued Medications Acetaminophen (Acetaminophen 325 Mg Tablet) 650 mg PO NOW ONE Stop: 08/17/24 16:10 Last Admin: 08/17/24 16:25 Dose: 650 mg Documented By: GIDEON Vital Signs Vital signs: Vital Signs - 8 hr 08/17/24 14:33 08/17/24 14:44 08/17/24 15:00 Temperature 97.7 F Pulse Rate 60 59 L 65 Respiratory Rate 18 24 23 Blood Pressure 162/77 H Pulse Oximetry 97 97 96 Oxygen Delivery Method Room Air 08/17/24 15:30 08/17/24 16:00 08/17/24 16:09 Temperature Pulse Rate 60 68 65 Respiratory Rate 21 23 20 Blood Pressure Pulse Oximetry 96 98 98 Oxygen Delivery Method 08/17/24 16:09 08/17/24 16:11 08/17/24 16:27 Temperature Pulse Rate 67 Respiratory Rate Blood Pressure 185/77 H 184/90 H Pulse Oximetry Oxygen Delivery Method 08/17/24 17:17 08/17/24 17:17 Temperature Pulse Rate 70 Respiratory Rate Blood Pressure 176/79 H Pulse Oximetry 99 Oxygen Delivery Method MDM - Fall Lab Data 08/17/24 14:23 08/17/24 14:23 Labs: Lab Results 08/17/24 08/17/24 08/17/24 Range/Units 14:23 14:37 15:10 WBC 5.1 (4.5-11.0) X10^3/uL RBC 3.30 L (4.5-5.9) X10^6/uL Hgb 10.7 L (13.5-17.5) g/dL Hct 30.8 L (41-53) % MCV 93.4 (80-100) fL MCH 32.3 (26-34) PG MCHC 34.6 (30-36) % RDW 14.5 (11.6-14.8) % Plt Count 160 (150-400) X10^3/uL Neut % (Auto) 58.3 (50-75) % Lymph % (Auto) 31.6 (25-40) % Yell % (Auto) 8.5 (3-14) % Eos % (Auto) 1.1 L (2-4) % Baso % (Auto) 0.5 (0-2) % Neut # (Auto) 3000 (3923-8942) /uL Lymph # (Auto) 1600 (0855-3094) /uL Yell # (Auto) 400 (0-900) /uL Eos # (Auto) 100 (0-450) /uL Baso # (Auto) 0 (0-100) /uL PT 13.0 H (9.4-12.5) SECONDS INR 1.1 (0.9-1.3) APTT 29 (25.1-36.5) SECONDS Sodium 134 L (137-145) mmol/L Potassium 3.8 (3.4-5.1) mmol/L Chloride 104 (98-107) mmol/L Carbon Dioxide 27 (22-32) mmol/L BUN 17 (9-20) mg/dL Creatinine 0.87 (0.66-1.25) mg/dL Estimated GFR > 60 (>60) mL/min BUN/Creatinine Ratio 19.5 (6-22) Glucose 94 (80-110) mg/dL Calcium 8.1 L (8.4-10.2) mg/dL Total Bilirubin 0.5 (0.2-1.3) mg/dL AST 24 (17-59) IU/L ALT 16 (<50) IU/L Alkaline Phosphatase 32 L (38-126) U/L Total Creatine Kinase 51 L (55-170) U/L Troponin I < 0.012 (0.01-0.034) ng/mL Total Protein 5.4 L (6.3-8.2) g/dL Albumin 2.9 L (3.5-5.0) g/dL Globulin 2.5 (1.7-4.1) g/dL Albumin/Globulin Ratio 1.2 (1.0-2.8) Urine Color Yellow Urine Appearance Clear Urine pH 7.5 (4.5-8.0) Ur Specific [place] 1.010 (1.000-1.035) Urine Protein Negative (Negative) Urine Glucose (UA) Negative (Negative) g/dL Urine Ketones Negative (NEGATIVE) Urine Occult Blood Negative (Negative) Urine Nitrate Negative (Negative) Urine Bilirubin Negative (NEGATIVE) Urine Urobilinogen 0.2 (0.2) E.U./dL Ur Leukocyte Esterase Negative (NEGATIVE) Urine RBC None seen (0-5/HPF) Urine WBC None seen (0-5/HPF) Ur Squamous Epith Cells None seen (0-5/HPF) Urine Bacteria None seen (None) Ur Culture Indicated? Cult not indicated Vol Urine Centrifuged 10ml (spun) U Opiates 300ng/mL cut Positive H (Negative) Ur Oxycodone Screen Negative (Negative) Urine Methadone Screen Negative (Negative) Ur Barbiturates Screen Negative (Negative) U Tricyclic Antidepress Negative (Negative) Ur Phencyclidine Scrn Negative (Negative) Ur Amphetamines Screen Negative (Negative) U Methamphetamines Scrn Negative (Negative) Ur MDMA Scrn (Ecstasy) Negative (Negative) U Benzodiazepines Scrn Negative (Negative) Urine Cocaine Screen Negative (Negative) U Marijuana (THC) Screen Negative (Negative) Urine Specific [place] (Normal) Ethyl Alcohol < 10 ( - 10) mg/dL Ur Creatinine (Normal) SARS-CoV-2 (PCR) Negative (Negative) 08/17/24 Range/Units 15:10 WBC (4.5-11.0) X10^3/uL RBC (4.5-5.9) X10^6/uL Hgb (13.5-17.5) g/dL Hct (41-53) % MCV (80-100) fL MCH (26-34) PG MCHC (30-36) % RDW (11.6-14.8) % Plt Count (150-400) X10^3/uL Neut % (Auto) (50-75) % Lymph % (Auto) (25-40) % Yell % (Auto) (3-14) % Eos % (Auto) (2-4) % Baso % (Auto) (0-2) % Neut # (Auto) (3468-0017) /uL Lymph # (Auto) (9414-4620) /uL Yell # (Auto) (0-900) /uL Eos # (Auto) (0-450) /uL Baso # (Auto) (0-100) /uL PT (9.4-12.5) SECONDS INR (0.9-1.3) APTT (25.1-36.5) SECONDS Sodium (137-145) mmol/L Potassium (3.4-5.1) mmol/L Chloride (98-107) mmol/L Carbon Dioxide (22-32) mmol/L BUN (9-20) mg/dL Creatinine (0.66-1.25) mg/dL Estimated GFR (>60) mL/min BUN/Creatinine Ratio (6-22) Glucose (80-110) mg/dL Calcium (8.4-10.2) mg/dL Total Bilirubin (0.2-1.3) mg/dL AST (17-59) IU/L ALT (<50) IU/L Alkaline Phosphatase (38-126) U/L Total Creatine Kinase (55-170) U/L Troponin I (0.01-0.034) ng/mL Total Protein (6.3-8.2) g/dL Albumin (3.5-5.0) g/dL Globulin (1.7-4.1) g/dL Albumin/Globulin Ratio (1.0-2.8) Urine Color Urine Appearance Urine pH Normal (4.5-8.0) Ur Specific [place] (1.000-1.035) Urine Protein (Negative) Urine Glucose (UA) (Negative) g/dL Urine Ketones (NEGATIVE) Urine Occult Blood (Negative) Urine Nitrate (Negative) Urine Bilirubin (NEGATIVE) Urine Urobilinogen (0.2) E.U./dL Ur Leukocyte Esterase (NEGATIVE) Urine RBC (0-5/HPF) Urine WBC (0-5/HPF) Ur Squamous Epith Cells (0-5/HPF) Urine Bacteria (None) Ur Culture Indicated? Vol Urine Centrifuged U Opiates 300ng/mL cut (Negative) Ur Oxycodone Screen (Negative) Urine Methadone Screen (Negative) Ur Barbiturates Screen (Negative) U Tricyclic Antidepress (Negative) Ur Phencyclidine Scrn (Negative) Ur Amphetamines Screen (Negative) U Methamphetamines Scrn (Negative) Ur MDMA Scrn (Ecstasy) (Negative) U Benzodiazepines Scrn (Negative) Urine Cocaine Screen (Negative) U Marijuana (THC) Screen (Negative) Urine Specific [place] Normal (Normal) Ethyl Alcohol ( - 10) mg/dL Ur Creatinine Normal (Normal) SARS-CoV-2 (PCR) (Negative) Imaging Data CT scan - head: Radiologist's Impression: PROCEDURE: CT STROKE INDICATIONS: fall laeft facial droop TECHNIQUE: Noncontrast 4.5 mm thick angled axial sections acquired from the foramen magnum to the vertex, with coronal reformats. For radiation dose reduction, the following was used: automated exposure control, adjustment of mA and/or kV according to patient size. COMPARISON: [facility], CT, CT ANGIO HEAD AND NECK, 08/17/2024, 14:12. FINDINGS: Image quality: Diagnostic. CSF spaces: Basal cisterns are patent. No extra-axial fluid collections. Ventricles are normal in size and shape. Brain: No midline shift. No intracranial masses or hemorrhage. Crowe-white matter interface is normal. Moderate cerebral and cerebellar volume loss with multifocal white matter chronic ischemic change noted. Atherosclerotic calcification noted associated with cavernous segments of both internal carotid arteries. Skull and face: Calvarium and visualized facial bones are intact, without suspicious lesions. Sinuses: Visualized sinuses and mastoids are clear. IMPRESSION: Atrophy and chronic ischemic change without intracranial hemorrhage or mass effect. Note: Critical results were discussed with Dr. Wright at 01:34 PM [place] time on 08/17/24 Approved by: Stan Donis M.D. on 08/17/2024 at 13:35 CTA - brain/neck: Radiologist's Impression: PROCEDURE: CT STROKE INDICATIONS: fall laeft facial droop TECHNIQUE: Noncontrast 4.5 mm thick angled axial sections acquired from the foramen magnum to the vertex, with coronal reformats. For radiation dose reduction, the following was used: automated exposure control, adjustment of mA and/or kV according to patient size. COMPARISON: [facility], CT, CT ANGIO HEAD AND NECK, 08/17/2024, 14:12. FINDINGS: Image quality: Diagnostic. CSF spaces: Basal cisterns are patent. No extra-axial fluid collections. Ventricles are normal in size and shape. Brain: No midline shift. No intracranial masses or hemorrhage. Crowe-white matter interface is normal. Moderate cerebral and cerebellar volume loss with multifocal white matter chronic ischemic change noted. Atherosclerotic calcification noted associated with cavernous segments of both internal carotid arteries. Skull and face: Calvarium and visualized facial bones are intact, without suspicious lesions. Sinuses: Visualized sinuses and mastoids are clear. IMPRESSION: Atrophy and chronic ischemic change without intracranial hemorrhage or mass effect. Note: Critical results were discussed with Dr. Wright at 01:34 PM [place] time on 08/17/24 Approved by: Stan Donis M.D. on 08/17/2024 at 13:35 Extremity x-ray #1: Radiologist's Impression: PROCEDURE: XR SHOULDER LT MIN 2V INDICATIONS: left shoulder deformity TECHNIQUE: 3 views of the shoulder were acquired. COMPARISON: None. FINDINGS: Bones: No fractures or dislocations. No suspicious bony lesions. Visualized ribs appear intact. Soft tissues: No suspicious soft tissue calcifications. IMPRESSION: Degenerative acromioclavicular arthritic changes noted ECG Data Attestation: I personally reviewed and interpreted this ECG as follows: Prior ECG tracings: available for review Interpretation: Sinus rhythm do not agree with AFib no obvious ST changes, there is a pause but I do not appreciate any sort of AV block or dropped P wave MDM Narrative Medical decision making narrative: MDM CC: Fall left facial droop and numbness Complicating co-morbidities: Prior history of vasovagal episodes hyperlipidemia Corroborating data: EMS and family Medical records reviewed: Previous ED visit November 2023 had a syncopal episode during bowel movement and was discharged home Prior PCP record reports history of SVT Differential considered: Cardiogenic syncope, neurogenic versus vasovagal, CVA versus TIA, anemia Exam documented above, pertinent findings include: NIH stroke scale 0 pleasant alert oriented nontoxic. He does have some AC separation with certain movements on exam but neurovascularly intact Lab Test results independently reviewed as above. Pertinent findings: CBC WBC is 5.1 hemoglobin 10 point hematocrit 30.8 previous hemoglobin 12 0.7/37.17 May 2024 CMP sodium is 134 potassium 3.8 creatinine 0.8, calcium 8.1 Bilirubin 0.5 AST 24 ALT 16 alk-phos 32 Troponin negative Independently reviewed EKG as above: No anemia but there is arrhythmia there is some mild artifact do not necessarily agree with atrial fibrillation Imaging studies independently reviewed: CT head no intracranial hemorrhage or mass CT angio no large vessel occlusion left shoulder x-ray does not show fracture Consultations: None Treatments: 1 L of IV fluids, Tylenol for pain Re-evaluations: Patient's blood pressure has been stable while in the ED alert and oriented. He ambulated with a walker to the restroom. They have noted that he does have some AC separation with certain movements and is mildly painful for him. Discussion: 83-year-old male presenting today with a syncopal episode and questionable TIA CVA, he had some left facial numbness and droop lasting less than 10 minutes and was associated with some hypotension. NIH stroke scale of 0 upon arrival in his remained that way. Long discussion with family about causes of syncope including cardiogenic which he reports he had a ZIO patch on for at least 2 weeks maybe a year ago neurogenic and vasovagal. He has had previous syncopal episode while on the toilet. Patient is quite certain he has symptoms with pain and certain movements but he does not always fall or pass out. He walks frequently with a cane or walker. We talked about admission versus going home. Patient would like to go home I think this is reasonable but encouraged further outpatient workup. He was never further hypotensive in fact his blood pressure was slightly high and he remained stable. He does have an AC shoulder separation was offered a sling supportive care only and follow-up with orthopedics. Discharge Plan Departure Patient Disposition: Home Clinical Impression: Syncope, AC separation Instructions: DI for Syncope in Adults (Fainting) Activity Restrictions/Additional Instructions: *You have been diagnosed with syncope *What to do: At this time please talk with your primary care provider about repeating ZIO patch ultrasound possibly an outpatient MRI Use left arm as tolerated use sling as needed. May ice. It follow up with Orthopedics *Continue to take medications as directed *Follow up with your primary care provider in 2-3 days or call [phone] *Return to ER if you should have recurrent episode of passing, weakness facial droop difficulty speaking or any new, worsening or concerning symptoms Prescriptions: No Action atorvastatin 20 mg tablet 20 mg PO BEDTIME Qty: 90 1RF (DME) DISABLED PARKING PERMIT See Rx Instructions .ROUTE .MEDSUPPLY Qty: 1 0RF Rx Instructions: I FIND THIS PATIENT TO BE MEDICALLY DISABLED AND QUALIFIED FOR DISABLE PARKING INDICATED, AND SIGNED ON THE [employer] PARK APPLICATION FOR INDIVIDUALS multivitamin Tablet,Chewable 1 tab PO DAILY Patient Comments: adult gummy Vitamin C 1 tab PO DAILY coQ10 (liposomal ubiquinol) 1 dose PO DAILY Referrals: [facility] [Provider Group] Osiris Hanna DO [Primary Care Provider] - Stand Alone Forms: Patient Portal/API
[2024-08-17] MEDS: ACETAMINOPHEN 325 MG TABLET 650 MG PO (16:25)
== END 2024-08-17 17:38 | disposition home or self-care (01) ==
PROVIDERS: Emergency Provider Emergency Medicine; Family Provider Student in an Organized Health Care Education/Training Program; PCP Family Medicine
DX: R55 Syncope and collapse (principal); S43.102A Unspecified dislocation of left acromioclavicular joint, initial encounter; S09.90XA Unspecified injury of head, initial encounter; R29.810 Facial weakness; I10 Essential (primary) hypertension; Z11.52 Encounter for screening for COVID-19
CPT/HCPCS: 70450; 70496; 70498; 73030; 80053; 80305; 80320; 81001; 82550; 84484; 85025; 85610; 85730; 87635; 93005

== ENCOUNTER 2024-08-17 18:42 | Observation (INO) | payer MEDICARE, SELFPAY ==
[2022-03-17 15:02] VITALS: BMI 26.5
[2024-08-17 18:35] VITALS: BP 158/81; PULSE 58; RESP 18; TEMP 36.5; O2SAT 98; BMI 24.3
--- NOTE | 2024-08-17 18:56 | EKG_ITS ---
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
[2024-08-17] MEDS: MAG HYDROX/ALUMINUM/SIMETH SUS 20 ML, LIDOCAINE VISCOUS 2% 15 ML PO (19:43)
[2024-08-17 19:55] VITALS: BP 189/86; PULSE 66; RESP 17; O2SAT 98
[2024-08-17 20:00] VITALS: BP 185/85; PULSE 63; RESP 20; O2SAT 97
[2024-08-17 20:14] LABS: Alanine Aminotransferase 22 IU/L (<50); Albumin 3.6 g/dL (3.5-5.0); Albumin Globulin Ratio 1.2 (1.0-2.8); Alkaline Phosphatase 43 U/L (38-126); Aspartate Aminotransferase 32 IU/L (17-59); BUN Creatinine Ratio 23.9 (6-22); Basophils Absolute Auto 0 /uL (0-100); Basophils Percent Auto 0.1 % (0-2); Bilirubin Total 0.5 mg/dL (0.2-1.3); Blood Urea Nitrogen 17 mg/dL (9-20); Calcium 8.4 mg/dL (8.4-10.2); Carbon Dioxide 25 mmol/L (22-32); Chloride 104 mmol/L (98-107); Eosinophils Absolute Auto 0 /uL (0-450); Eosinophils Percent Auto 0.1 % (2-4); Estimated Glomerular Filt Rate > 60 mL/min (>60); Ethanol (ETOH) < 10 mg/dL; Globulin 3.1 g/dL (1.7-4.1); Glucose 109 mg/dL (80-110); HEMOLYSIS 16 (0-50); Hematocrit 37.8 % (41-53); Hemoglobin 12.9 g/dL (13.5-17.5); Lipase 82 U/L (23-300); Lymphocytes Absolute Auto 600 /uL (1100-4500); Lymphocytes Percent Auto 5.9 % (25-40); Magnesium 1.9 mg/dL (1.6-2.3); Mean Corpuscular HGB Conc 34.1 % (30-36); Mean Corpuscular Hemoglobin 32.1 PG (26-34); Mean Corpuscular Volume 94.2 fL (80-100); Monocytes Absolute Auto 500 /uL (0-900); Monocytes Percent Auto 4.9 % (3-14); Neutrophils Absolute Auto 9700 /uL (1500-7000); Platelet Count 166 X10^3/uL (150-400); Potassium 3.8 mmol/L (3.4-5.1); Red Blood Cell Count 4.02 X10^6/uL (4.5-5.9); Red Cell Distribution Width 14.8 % (11.6-14.8); Sodium 135 mmol/L (137-145); Total Protein 6.7 g/dL (6.3-8.2); White Blood Cell Count 10.9 X10^3/uL (4.5-11.0)
[2024-08-17 20:15] LABS: Add Manual Diff / Slide Review SLIDE REVIEW
--- NOTE | 2024-08-17 20:19 | ED.GENADULT ---
HPI - General Adult General Chief complaint: Syncope Stated complaint: Syncope Time Seen by Provider: 08/17/24 19:10 Source: patient and EMS Mode of arrival: EMS History of Present Illness HPI narrative: Patient is an 83-year-old male who is brought to the emergency department this evening for what appears to be a syncopal episode. He has had issues with occasional syncope over the past year or so. He was actually seen here in the emergency department earlier today for a fall that he had. He stated that he tripped and fell and landed and hit his head however we can not be completely certain that he did not have another episode of syncope. There was some question in route to the emergency department during that visit that he had a short episode of drooping of the side of his face and slurring some words. He had a fairly unremarkable workup. Per report there was discussion about admission to the hospital but patient decided to be discharged home. After he got home he went to the bathroom. He did have a bowel movement and urinated. He apparently had a syncopal episode while on the toilet. During my initial evaluation he stated that he was feeling essentially back to normal. No chest pain. No palpitations. No lightheadedness. No sore throat. No shortness of breath. No abdominal pain nausea vomiting or extremity symptoms. Related Data Home Medications Medication Instructions Recorded Confirmed multivitamin 2 tab PO DAILY 03/10/19 08/17/24 omega-3 fatty acids 1 cap PO DAILY 08/17/24 08/17/24 vitamin A-vitamin D3 700 unit-400 1 cap PO DAILY 08/17/24 08/17/24 unit capsule Previous Rx's Medication Instructions Recorded DISABLED PARKING PERMIT #1 ea 12/06/23 atorvastatin 20 mg tablet 20 mg PO BEDTIME #90 tabs 06/18/24 Allergies Allergy/AdvReac Type Severity Reaction Status Date / Time No Known Drug Allergies Allergy Verified 08/17/24 18:53 Review of Systems Review of Systems ROS Unobtainable: All systems reviewed & are unremarkable except as noted in HPI and below Patient History Medical History Syncope Hyperlipidemia Mumps (~1945) Vertigo (~2017) Hearing loss GERD (gastroesophageal reflux disease) Syncope Hypertension Surgical History History of repair of hiatal hernia Anesthesia History of hernia surgery (~1971) History of knee surgery (~1969) Family History Mother Brain aneurysm Social History household members: spouse, family and children Smoking Status: Former smoker alcohol intake: current Smoking Status: Former smoker alcohol intake frequency: a few times a week Substance Use Type: does not use Exam Initial Vital Signs Initial Vital Signs: Vital Signs Temperature 97.7 F 08/17/24 18:35 Pulse Rate 58 L 08/17/24 18:35 Respiratory Rate 18 08/17/24 18:35 Blood Pressure 158/81 H 08/17/24 18:35 Pulse Oximetry 98 08/17/24 18:35 Oxygen Delivery Method Room Air 08/17/24 18:35 Const General: cooperative, comfortable and No ill appearing HENMT Head: normal to inspection and normocephalic Resp Effort & Inspection: normal respiratory effort Auscultation: clear to auscultation bilaterally Cardio Rate: regular rate Rhythm: regular rhythm Skin General: no rashes or lesions noted Neuro General: patient alert, patient awake, patient oriented x3 and moves all extremities Extrem General: normal to inspection Scores GCS [place] coma scale eye opening: Spontaneous [place] coma scale verbal response: Orientated Gur[place] coma scale motor response: Obey commands [place] coma scale total score: 15 Course Orders Ordered: ED Orders 08/17/24 18:54 EKG-12 Lead Stat 08/17/24 19:52 Complete Blood Count AUTO DIFF Stat Comprehensive Metabolic Panel Stat Ethanol (ETOH) Stat Lipase Stat Magnesium Stat Acetaminophen (Acetaminophen 325 Mg Tablet) 650 mg PO Q6H PRN PRN Reason: Fever/Mild Pain (1-3) Atorvastatin Calcium (Atorvastatin 20 Mg Tablet) 20 mg PO BEDTIME REHAN Calcium Carbonate (Calcium Carbonate 500 Mg Tab) 1,000 mg PO Q4HR PRN PRN Reason: Dyspepsia Last Admin: 08/18/24 00:12 Dose: 1,000 mg Documented By: Sodium Chloride (Normal Saline 0.9%) 1,000 mls @ 100 mls/hr IV CONT REHAN Last Admin: 08/17/24 22:42 Dose: 100 mls/hr Documented By: Naloxone HCl (Naloxone 0.4 Mg/Ml Vial) 0.2 mg IV Q2MIN PRN PRN Reason: Opiate Reversal Ondansetron HCl (Ondansetron 4 Mg/2 Ml Inj) 4 mg IV Q8HR PRN PRN Reason: Nausea And Vomiting Discontinued Medications Al Hydrox/Mg Hydrox/Simethicone 20 ml/ Lidocaine HCl 15 ml 0 ml PO NOW ONE Stop: 08/17/24 19:31 Last Admin: 08/17/24 19:43 Dose: 35 ml Documented By: AB Vital Signs Vital signs: Vital Signs - 8 hr 08/17/24 19:55 08/17/24 20:00 08/17/24 20:30 Pulse Rate 66 63 68 Respiratory Rate 17 20 15 Blood Pressure 189/86 H 185/85 H 162/81 H Pulse Oximetry 98 97 97 Oxygen Delivery Method Room Air Room Air Room Air 08/17/24 21:00 Pulse Rate 64 Respiratory Rate 17 Blood Pressure 148/69 H Pulse Oximetry 96 Oxygen Delivery Method Room Air Medical Decision Making Medical Records Medical records reviewed: Yes I reviewed the patient's medical records. Lab Data Lab results reviewed: Yes I reviewed the patient's lab results. 08/17/24 19:52 08/17/24 19:52 Labs: Lab Results 08/17/24 Range/Units 19:52 WBC 10.9 D (4.5-11.0) X10^3/uL RBC 4.02 L (4.5-5.9) X10^6/uL Hgb 12.9 L (13.5-17.5) g/dL Hct 37.8 L (41-53) % MCV 94.2 (80-100) fL MCH 32.1 (26-34) PG MCHC 34.1 (30-36) % RDW 14.8 (11.6-14.8) % Plt Count 166 (150-400) X10^3/uL Neut % (Auto) 89.0 H D (50-75) % Lymph % (Auto) 5.9 L D (25-40) % [place] % (Auto) 4.9 (3-14) % Eos % (Auto) 0.1 L (2-4) % Baso % (Auto) 0.1 (0-2) % Neut # (Auto) 9700 H (1185-3256) /uL Lymph # (Auto) 600 L (5383-4533) /uL [place] # (Auto) 500 (0-900) /uL Eos # (Auto) 0 (0-450) /uL Baso # (Auto) 0 (0-100) /uL RBC Morphology Normal morphology Sodium 135 L (137-145) mmol/L Potassium 3.8 (3.4-5.1) mmol/L Chloride 104 (98-107) mmol/L Carbon Dioxide 25 (22-32) mmol/L BUN 17 (9-20) mg/dL Creatinine 0.71 (0.66-1.25) mg/dL Estimated GFR > 60 (>60) mL/min BUN/Creatinine Ratio 23.9 H (6-22) Glucose 109 (80-110) mg/dL Calcium 8.4 (8.4-10.2) mg/dL Magnesium 1.9 (1.6-2.3) mg/dL Total Bilirubin 0.5 (0.2-1.3) mg/dL AST 32 (17-59) IU/L ALT 22 (<50) IU/L Alkaline Phosphatase 43 (38-126) U/L Total Protein 6.7 (6.3-8.2) g/dL Albumin 3.6 (3.5-5.0) g/dL Globulin 3.1 (1.7-4.1) g/dL Albumin/Globulin Ratio 1.2 (1.0-2.8) Lipase 82 (23-300) U/L Ethyl Alcohol < 10 ( - 10) mg/dL ECG Data Attestation: I personally reviewed and interpreted this ECG as follows: Interpretation: Sinus bradycardia Ventricular rate of 59 Normal axis Normal QRS Normal QTC No ST T wave changes MDM Narrative Medical decision making narrative: 2nd visit today for a fall. The 1st 1 potentially was a mechanical fall although potentially was a syncopal episode as well. There was some question as to whether or not he potentially had a TIA in route to the emergency department. Was eventually discharged home and returns today for again what appears to be a syncopal episode while going to the bathroom. Low suspicion for seizure. He was no focal neurologic deficits now. I did discuss the case with Dr. Lopez hospitalist on-call and we will admit for a period of observation and cardiac monitoring Discharge Plan Departure Patient Disposition: Admitted as Observation Clinical Impression: Syncope Admit Date/Time: 08/17/24 21:33 Admit Provider: Ruddy Lopez
[2024-08-17 20:30] VITALS: BP 162/81; PULSE 68; RESP 15; O2SAT 97
[2024-08-17 21:00] VITALS: BP 148/69; PULSE 64; RESP 17; O2SAT 96
[2024-08-17 21:05] LABS: RBC Morphology Normal Morphology
[2024-08-17 21:34] VITALS: BMI 24.3
--- NOTE | 2024-08-17 21:38 | DI.ECHO.S_ITS ---
[place] +---------+ [facility] : : [address] : : [place] : : [id number] : : Phone: [phone] Echocardiogram Report + + :Name: SYMONE DAHL Study Date: 08/18/2024 Height: 68 in : :[facility] ReadingLocation: Weight: 160 lb : : Gender: Male BSA: 1.9 m2 : :: 1940 Age: 83 yrs BP: 134/84 mmHg: :Reason For Study: SYNCOPE : :Ordering Physician: SCOTTIE, : :RYLIE CHING Performed By: Jordan Bell : :Referring: UNSPECIFIED : + + Interpretation Summary TDS - VERY POOR WINDOWS. PT UNABLE TO POSITION FOR EXAM DUE TO L SHOULDER PAIN. Normal left ventricle size with ejection fraction 65-70%. No obvious valvular abnormality. Comparison is made with the echocardiogram of 01/08/2023, no significant change. Procedure: A two-dimensional transthoracic echocardiogram with color flow and Doppler was performed. The study quality was technically difficult. The study quality was technically limited. Comparison is made with the echocardiogram of 01/08/2023. The patient was in normal sinus rhythm during the exam. Left Ventricle: The left ventricle is normal in size and wall thickness. The ejection fraction is estimated to be 65-70%. There are no obvious focal wall motion abnormalities noted but poor endocardial definition reduces the sensitivity for the detection of such. Right Ventricle: The right ventricle is not well visualized. Atria: The left atrium is not well visualized. Right atrium not well visualized. The interatrial septum is not well visualized. Mitral Valve: The mitral valve is grossly normal. The mitral valve is not well visualized. There is no mitral regurgitation noted. Aortic Valve: The aortic valve is grossly normal. The aortic valve is not well visualized. No aortic regurgitation is present. Tricuspid Valve: The tricuspid valve is not well visualized. The tricuspid valve is not well visualized, but is grossly normal. No tricuspid regurgitation. Pulmonary artery pressures cannot be estimated because of the lack of a measurable TR jet velocity. Pulmonic Valve: The pulmonic valve is not well visualized. Great Vessels: The aortic root is borderline dilated. The ascending aorta is at the upper limits of normal in size. The inferior vena cava was not visualized. Pericardium/ Pleura There is no pericardial effusion. There is no pleural effusion. MMode/2D Measurements & Calculations LVIDd: 4.2 cm LVOT diam: 2.3 cm LVIDs: 2.6 cm Ao root diam: 3.7 cm FS: 37.5 % asc Aorta Diam: 3.6 cm EPSS: 1.2 cm Ao Arch Diam (Prox Trans): 2.6 cm IVSd: 1.0 cm LVPWd: 0.97 cm LV arriaga. diameter/BSA (cm/m^2): 2.2 LV sys. diameter/BSA (cm/m^2): 1.4 Doppler Measurements & Calculations Ao V2 max: 109.3 cm/sec LVOT Max Liam: 82.4 cm/sec Ao V2 mean: 74.5 cm/sec LV V1 max P.7 mmHg Ao max P.8 mmHg LV V1 VTI: 16.6 cm Ao mean P.5 mmHg SONA(I,D): 3.4 cm2 Ao V2 VTI: 19.8 cm SONA(V,D): 3.1 cm2 sev ratio: 0.84 SONA indexed to BSA (cm^2/m^2): 1.8 MV E max liam: 61.2 cm/sec SV(LVOT): 67.8 ml MV A max liam: 79.3 cm/sec MV E/A: 0.77 Med Peak E' Liam: 7.1 cm/sec E/E' med: 8.6 Lat Peak E' Liam: 9.3 cm/sec E/E' lat: 6.6 E/e' average: 7.6 MV dec time: 0.28 sec Electronically signed by: Enedina Khalil on Reading Physician:08/18/2024 10:30 AM
[2024-08-17 22:00] VITALS: BP 161/94; PULSE 73; RESP 20; TEMP 36.9; O2SAT 97
[2024-08-17] MEDS: SODIUM CHLORIDE 0.9% 1,000 ML 100 ML IV (22:42)
[2024-08-18] VITALS (8 sets, daily range): BP systolic 134–168; BP diastolic 80–95; PULSE 66–87; RESP 14–24; TEMP 36.3–37.4; O2SAT 95–97
[2024-08-18] MEDS: CALCIUM CARBONATE 500 MG TAB 1000 MG PO (00:12)
--- NOTE | 2024-08-18 05:30 | PM.HP.1 ---
History of Present Illness History of Present Illness Chief complaint: Syncope Narrative: 83-year-old male with medical history of hyperlipidemia and previous episode of syncope presents with concern of a stroke. Of note, the patient presented initially to our ER early today with concern of a stroke due to a fall and reported left facial trooping and numbness. However, there?s no report of any focal weakness, changes in speech or vision. The patient was admitted to our ER with full workup including ?a CT scan without contrast which shows no sign of stroke. The patient however, was found to have systolic blood pressure in the 60s per EMS but resolved with IV fluid bolus. ?It was reported that the patient has orthostatic hypotension. Laboratory and vital signs were otherwise normal and the patient was deemed to be stable for discharge. However, when the patient return home, the patient felt fatigue and went to the restroom to have a bowel movement. In the restroom, the patient had a syncopal episode but there was no report of any serious injury. ?The patient was brought back into our emergency room for further evaluation. The patient otherwise denies any chest pain, shortness of breath, fever, chills, nausea, or diarrhea. In our emergency room, the patient was hemodynamically intact. ?EKG as well as troponin were negative. ?Our ER physician requested admission to observation. [facility] Medical History Syncope Hyperlipidemia Mumps (~1945) Vertigo (~2016) Hearing loss GERD (gastroesophageal reflux disease) Syncope Hypertension Surgical History History of repair of hiatal hernia Anesthesia History of hernia surgery (~1971) History of knee surgery (~1969) Family History Mother Brain aneurysm Social History household members: spouse, family and children Smoking Status: Former smoker alcohol intake: current Meds Home Medications and Allergies Home Medications Medication Instructions Recorded Confirmed Type multivitamin 2 tab PO DAILY 03/10/19 08/17/24 History DISABLED PARKING PERMIT #1 ea 12/06/23 08/17/24 Rx atorvastatin 20 mg tablet 20 mg PO BEDTIME #90 tabs 06/18/24 08/17/24 Rx omega-3 fatty acids 1 cap PO DAILY 08/17/24 08/17/24 History vitamin A-vitamin D3 700 unit-400 1 cap PO DAILY 08/17/24 08/17/24 History unit capsule Allergies Allergy/AdvReac Type Severity Reaction Status Date / Time No Known Drug Allergies Allergy Verified 08/17/24 18:53 Review of Systems Review of Systems ROS: Yes All systems reviewed with the patient and are negative except as otherwise documented Exam Vital Signs (past 8 hours): - 08/17/24 22:00 08/18/24 00:00 08/18/24 04:00 Temperature 98.4 F 98.9 F 99.4 F Pulse Rate 73 66 72 Respiratory Rate 20 20 Blood Pressure 161/94 H 154/82 H 167/89 H Pulse Oximetry 97 97 95 Oxygen Flow Rate 0 0 0 Oxygen Delivery Method Room Air Oxygen Flow Rate 0 Narrative Exam Narrative: GENERAL: The patient is not in any acute distressed. Awake and alert. HEENT: Nonicteric sclerae, PERRLA, EOMI. Oropharynx clear. Moist mucous membranes. Conjunctivae appear well perfused. HEART: Regular rate and rhythm without murmurs. No lower extremities edema. LUNGS: Clear to auscultation bilaterally. No wheezing, crackles or rhonchi ABDOMEN: Soft, positive bowel sounds, nontender. SKIN: No rash, no excessive bruising, petechiae, or purpura. NEUROLOGIC: AxO x 3. Cranial nerves II-XII intact without motor/sensory deficit. Objective Labs 08/17/24 19:52 08/17/24 19:52 Labs: Laboratory Results - last 24 hr 08/17/24 19:52 WBC 10.9 D RBC 4.02 L Hgb 12.9 L Hct 37.8 L MCV 94.2 MCH 32.1 MCHC 34.1 RDW 14.8 Plt Count 166 Neut % (Auto) 89.0 H D Lymph % (Auto) 5.9 L D [place] % (Auto) 4.9 Eos % (Auto) 0.1 L Baso % (Auto) 0.1 Neut # (Auto) 9700 H Lymph # (Auto) 600 L [place] # (Auto) 500 Eos # (Auto) 0 Baso # (Auto) 0 RBC Morphology Normal morphology Sodium 135 L Potassium 3.8 Chloride 104 Carbon Dioxide 25 BUN 17 Creatinine 0.71 Estimated GFR > 60 BUN/Creatinine Ratio 23.9 H Glucose 109 Calcium 8.4 Magnesium 1.9 Total Bilirubin 0.5 AST 32 ALT 22 Alkaline Phosphatase 43 Total Protein 6.7 Albumin 3.6 Globulin 3.1 Albumin/Globulin Ratio 1.2 Lipase 82 Ethyl Alcohol < 10 Assessment & Plan Assessment & Plan narrative: Syncope. Unclear etiology at this time. Initially the patient did have symptomatic orthostatic hypotension which now resolved. Note the patient had prior episode of snycope kn which the patient had a holter monitor in which verbally the patient reported no arrhythmia was found. ?Will continue to monitor the patient overnight on telemetry. Will give IV fluid and monitor patient?s blood pressure. Will also check an echocardiogram. PT/OT. Dehydration with orthostatic hypertension. IV fluid and monitor blood pressure. Hyperlipidemia. Resume home statin. DVT prophylaxis SCDS for now ?as patient IS observational status status. Disposition likely in 1 to 2 days. Time-Based Coding :: [TOTAL MINUTES] spent with patient and on the chart (including review of chart, obtaining history, exam, reviewing outside data, placing orders, documenting exam and treatment plan, and counseling patient) on [DATE]. Quality VTE Deep Vein Thrombosis/Pulmonary Embolism Present on Admission: No
[2024-08-18 05:50] LABS: Add Manual Diff / Slide Review NO; Basophils Absolute Auto 0 /uL (0-100); Basophils Percent Auto 0.4 % (0-2); Eosinophils Absolute Auto 0 /uL (0-450); Eosinophils Percent Auto 0.2 % (2-4); Hematocrit 36.3 % (41-53); Hemoglobin 12.5 g/dL (13.5-17.5); Lymphocytes Absolute Auto 900 /uL (1100-4500); Lymphocytes Percent Auto 11.4 % (25-40); Mean Corpuscular HGB Conc 34.4 % (30-36); Mean Corpuscular Hemoglobin 32.1 PG (26-34); Mean Corpuscular Volume 93.2 fL (80-100); Monocytes Absolute Auto 500 /uL (0-900); Monocytes Percent Auto 6.7 % (3-14); Neutrophils Absolute Auto 6600 /uL (1500-7000); Neutrophils Percent Auto 81.3 % (50-75); Platelet Count 166 X10^3/uL (150-400); Red Blood Cell Count 3.89 X10^6/uL (4.5-5.9); Red Cell Distribution Width 14.6 % (11.6-14.8); White Blood Cell Count 8.2 X10^3/uL (4.5-11.0)
[2024-08-18 06:05] LABS: BUN Creatinine Ratio 17.7 (6-22); Blood Urea Nitrogen 14 mg/dL (9-20); Calcium 8.5 mg/dL (8.4-10.2); Carbon Dioxide 27 mmol/L (22-32); Chloride 105 mmol/L (98-107); Estimated Glomerular Filt Rate > 60 mL/min (>60); Glucose 106 mg/dL (80-110); HEMOLYSIS < 15 (0-50); Potassium 3.9 mmol/L (3.4-5.1); Sodium 136 mmol/L (137-145)
--- NOTE | 2024-08-18 07:03 | PC.NURSE ---
pt continues to be in room air, sating in the mid 90s
--- NOTE | 2024-08-18 11:01 | OT.IP.EVAL ---
Past Medical History (Last Reviewed 08/18/24 @ 12:00 by Jj Townsend MD) GERD (gastroesophageal reflux disease) Hearing loss Hyperlipidemia Hypertension Mumps (~1945) Syncope Syncope Vertigo (~2017) Surgical History (Last Reviewed 08/18/24 @ 12:00 by Jj Townsend MD) Anesthesia History of hernia surgery (~1971) History of knee surgery (~1969) History of repair of hiatal hernia Occupational Therapy Inpatient Evaluation/Re-Eval M1 PT/OT-IP Prior Functional Status Start: 08/18/24 07:33 Freq: NEEDED Status: Active Protocol: Document 08/18/24 15:50 CGR (Rec: 08/18/24 16:11 CGR [id number]) Medical Review Prior Functional Status Medical History Reviewed Yes Diet/Fluid Consistency Regular Communication [employer] [place] and does not have hearing aides Mobility and Gait Pt states that he gait trains with rollator and SPC at home Activities of Daily Living and IADL's Pt reports I with ADLs and that he drives Social History Household Members spouse,family,children Living Arrangements House Number of Floors (Floors) One Floor Number of Stairs To Enter/Railing? No steps to enter Home Environment Standard Height Toilet,Walk in Shower,Built-In Shower Seat Home Equipment Four Wheel Walker,Straight Cane,Hand Held Shower,Grab Bars Near Toilet,Grab Bars In Shower Employment Status Retired M2 OT-IP Current Condition Start: 08/18/24 15:49 Freq: Status: Active Protocol: Document 08/18/24 15:50 CGR (Rec: 08/18/24 16:11 CGR [id number]) Occupational Therapy Current Condition Current Condition Evaluation Date 08/18/24 Treatment Diagnosis syncope Diagnosis Onset Date 08/17/24 M3 OT- IP Subjective and Pain Start: 08/18/24 15:49 Freq: Status: Active Protocol: Document 08/18/24 15:50 CGR (Rec: 08/18/24 16:11 CGR [id number]) OT- Subjective Occupational Therapy Visit Type Type Initial Evaluation Visit Start Time 10:45 Visit Stop Time 11:01 Notes partial cotreat with P.T. OT Pain Assessment Pain When Pain Assessed At Rest Pain Present Pain Present Denied Pain M4 OT- IP ADL's Start: 08/18/24 15:49 Freq: Status: Active Protocol: Document 08/18/24 15:50 CGR (Rec: 08/18/24 16:11 CGR [id number]) OT [id number] Comments OT Self-Feeding Comments not meal time OT ADL-Grooming Comments OT Grooming Comments not performed, pt states he already performed OT ADL-Oral Care Comments Oral Care Comments not performed, pt states he already performed OT ADL-Dressing General Eval Lower Body Dressing Ability Independent Areas Needing Assistance Socks Comments OT Dressing Comments seated in chair OT ADL-Toileting Comments OT Toileting Comments pt states he just performed with nursing and does not need to go now. OT ADL-Bathing Comments OT Bathing Comments not performed M5 OT- IP IADL's Start: 08/18/24 15:49 Freq: Status: Active Protocol: Document 08/18/24 15:50 CGR (Rec: 08/18/24 16:11 CGR [id number]) OT-Instrumental Activities of Daily Living Deficits IADL Deficits Identified No Deficits Home Safety Awareness Awareness of Need for Assistance at Home Good Awareness Ability to Problem Solve Emergency Able to Problem Solve Situations Medication Management Medication Management No Deficits Identified Money Management Money Management No Deficits Identified Meal Preparation Meal Preparation No Deficits Identified 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 No Deficits Identified Driving Driving Comments 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 OT- IP Functional Cognition Start: 08/18/24 15:49 Freq: Status: Active Protocol: Document 08/18/24 15:50 CGR (Rec: 08/18/24 16:11 CGR [id number]) Cognitive Factors Limiting Selfcare Function Cognitive Ability Level of Alertness Alert Patient Orientation Name,Age,Birthday,Month,Date, Year,Day of Week,Place, Situation Attention Span Ability Capable of Focused Attention, Capable of Sustained Attention Ability to Follow Commands Able to Follow Multi-Step Commands OT- Vision and Hearing OT- Hearing Assessment OT- Hearing Assessment WFL OT- Vision Assessment Visual Acuity Glasses All The Time Visual Attentiveness WFL Occular Pursuits WFL M7 OT- IP Mobility and Balance Start: 08/18/24 15:49 Freq: Status: Active Protocol: Document 08/18/24 15:50 CGR (Rec: 08/18/24 16:11 CGR [id number]) OT- Bed Mobility Assessment Supine to Sit Supine to Sit Assist Standby Assistance Scooting Scooting to Edge of Bed Standby Assistance OT-Transfer Assessment Sit to and From Stand Sit to and from Stand Contact Guard Assistance Transfers Transfer Ability Minimal Assistance Technique Transfer Destination Bed,Chair Transfer Technique Stand Step Pivot Devices Transfer Assistive Devices Gait Belt,Front Wheeled Walker OT- Balance Assessment Sitting Balance and Reactions Static Sitting Balance Ability Good Dynamic Sitting Balance Ability Good M8 OT- IP Objective Assessments Start: 08/18/24 15:49 Freq: Status: Active Protocol: Document 08/18/24 15:50 CGR (Rec: 08/18/24 16:11 CGR [id number]) OT Gross Range of Motion Upper Extremity Range of Motion Assessment Left Impaired ROM Impairments L shld pain from fall OT Strength Upper Extremity Strength Assessment Within Functional Limits Comments Strength Comments grossly 4/5 but L shld not tested OT- Coordination Assessment Upper Extremity Finger to Nose Test Within Functional Limits Finger Tapping Test Within Functional Limits OT-Muscle Tone Assessment Muscle Tone WNL Yes OT Sensation Assessment Edema Edema Absent M9 OT- IP Assessment and Plan Start: 08/18/24 15:49 Freq: Status: Active Protocol: Document 08/18/24 15:50 CGR (Rec: 08/18/24 16:11 CGR [id number]) OT Summary Assessment and Plan Potential Rehabilitation Potential Excellent Analytic Complexity at Evaluation Low Summary OT Impairments Strength,Balance,Functional Mobility,Grooming,Dressing, Toileting,Bathing,Toilet Transfers,Shower Transfers, Activity Tolerance Progress Towards Goals Progressing Toward Goals Assessment Summary Pt presents as a low complexity evaluation s/p admit for syncope. See P.T. note from this date for BPs, pt with slowly dropping BP over a 6 minute timeframe. Pt appears to be mostly impacted by his BP but may benefit form continued therapy services to address endurance and home safety with dropping BP. Recommend plan for d/c home. Goals Grooming Goal Independent Dressing Goal Independent Toileting Goal Independent Bathing Goal Independent Toilet Transfer Goal Independent Shower Transfer Goal Independent Days to Meet Goals 2 Frequency of Treatment Other frequency 5 x a week Treatment Plan OT Treatment Plan ADL Training,Functional Mobility,Patient/Family Education,Discharge Planning Other Treatment Recommendations and Next Home safety with dropping BP Treatment Focus Discharge Recommendations OT Discharge Recommendations Home with Assistance Transportation Needs at Discharge Private Vehicle
--- NOTE | 2024-08-18 11:17 | PT.IIE ---
Surgical History (Last Reviewed 07/06/23 @ 06:41 by Olman Alfaro MD) Anesthesia History of hernia surgery (~1971) History of knee surgery (~1969) History of repair of hiatal hernia Medical History (Last Reviewed 08/18/24 @ 03:18 by Shai Hall DO) GERD (gastroesophageal reflux disease) Hearing loss Hyperlipidemia Hypertension Mumps (~1945) Syncope Syncope Vertigo (~2017) Physical Therapy Inpatient Evaluation/Re-Eval M1 PT/OT-IP Prior Functional Status Start: 08/18/24 07:33 Freq: NEEDED Status: Active Protocol: Document 08/18/24 10:36 MB (Rec: 08/18/24 11:17 MB [id number]) Medical Review Prior Functional Status Medical History Reviewed Yes Diet/Fluid Consistency Regular Communication [employer] and does not have hearing aides Mobility and Gait Pt states that he gait trains with rollator and SPC at home Activities of Daily Living and IADL's Pt reports I with ADLs and that he drives Social History Household Members spouse,family,children Living Arrangements House Number of Floors (Floors) One Floor Number of Stairs To Enter/Railing? No steps to enter Home Environment Standard Height Toilet,Walk in Shower,Built-In Shower Seat Home Equipment Four Wheel Walker,Straight Cane,Hand Held Shower,Grab Bars Near Toilet,Grab Bars In Shower Employment Status Retired M2 PT-IP Current Condition Start: 08/18/24 07:33 Freq: NEEDED Status: Active Protocol: Document 08/18/24 10:36 MB (Rec: 08/18/24 11:17 MB [id number]) Physical Therapy Current Condition Current Condition Evaluation Date 08/18/24 Treatment Diagnosis Syncope and fall, hit left shoulder and head, L AC joint separation M3 PT-IP Subjective Start: 08/18/24 07:33 Freq: NEEDED Status: Active Protocol: Document 08/18/24 10:36 MB (Rec: 08/18/24 11:17 MB [id number]) Subjective Physical Therapy Visit Type Type Initial Evaluation Visit Start Time 10:36 Visit Stop Time 10:56 Number of ACCESS NURSE Visits 0 Physical Therapy Visit Comments Patient Comments Pt states that his stomach is bothering him and he has acid problem. He c/o left shoulder pain with adduction after fall and hurting left shoulder. Therapy Pain Assessment Pain When Pain Assessed At Rest Pain Present Pain Present Pain Reported Location Left Shoulder Intensity 5 Scale Used White-Miller (Faces) upset stomach Intensity 5 Scale Used White-Miller (Faces) M4 PT-IP Mobility and Gait Start: 08/18/24 07:33 Freq: NEEDED Status: Active Protocol: Document 08/18/24 10:36 MB (Rec: 08/18/24 11:17 MB [id number]) PT-Bed Mobility Assessment Supine to Sit Supine to Sit Standby Assistance,1 Person Assistance,Bedrails Scooting Scooting to Edge of Bed Standby Assistance Scooting Up and Down in Bed Standby Assistance PT-Transfer Assessment Sit to and From Stand Sit to and from Stand Contact Guard Assistance,1 Person Assistance,Use of Upper Extremities Equipment Transfer Assistive Device Gait Belt,Front Wheeled Walker Orthotic/Prosthetic Devices or Brace: No Transfers Transfer Destination Chair Transfer Technique Ambulation Transfer Ability Level of Assist Minimal Assistance Comments Mobility Comments Orthostatic assessment with BP and HR in right UE: supine 175/89, 69; standing 162/101, 96; standing 1' 157/100, 94; standing 2' 149/93, 94; standing 3' 142/90, 98; after 80' gait, pt starts to report nausea and wobbly: 132/75, 101 ; before sitting in chair 122/ 80, 105 and then pt flexes right arm and next reading higher. Gait Assessment Gait Gait Assistance Required: Minimum Assistance Distance (Feet) 80 Able to Maintain Weight Bearing Status Yes During Gait Assistive Devices Assistive Device Gait Belt,Front Wheeled Walker Orthotic/Prosthetic Devices or Brace: No Gait Deviations General Gait Pattern Decreased Stride Length, Decreased Feet Clearance, Flexed Trunk Factors Limiting Gait Function Factors Limiting Gait Function Decreased Activity Tolerance, Incoordination,Poor Balance, Poor Safety Awareness Comments Gait Comments PT cues pt to stay inside RW with feet and to keep stepping as he reports symptoms with gait, cues for turning and backing up to chair and PT manages IV pole PT-Balance Assessment Sitting Balance and Reactions Static Sitting Balance Ability Good Dynamic Sitting Balance Ability Fair Standing Balance and Reactions Static Standing Balance Ability Fair Dynamic Standing Balance Ability Fair Device Used RW M5 PT-IP Objective Assessments Start: 08/18/24 07:33 Freq: NEEDED Status: Active Protocol: Document 08/18/24 10:36 MB (Rec: 08/18/24 11:17 MB [id number]) Orientation Orientation/Cognition Level of Alertness Alert Orientation Name,Age,Birthday,Month,Date, Year,Day of Week,Place, Situation Language Function Ability Hard of Hearing Safety Awareness Decreased Safety Awareness Memory Description No Deficits Noted Gross Range of Motion Upper Extremity ROM Assessment Left Impaired Impairments Defer to OT, pain with adduction and pt with AC separation per ED d/c info 08/17/24 Lower Extremity ROM Assessment Within Functional Limits Strength Lower Extremity Strength Assessment Within Functional Limits Coordination Assessment Gross Coordination Gross Coordination Impaired Assessment Coordination Comments Decreased LUE use for bed mobility Muscle Tone Muscle Tone WNL Yes M7 PT-IP Assessment and Plan Start: 08/18/24 07:33 Freq: NEEDED Status: Active Protocol: Document 08/18/24 10:36 MB (Rec: 08/18/24 11:17 MB [id number]) PT Summary Assessment and Plan Potential Rehabilitation Potential Fair Status of Condition at Evaluation Unstable Summary Impairments Pain,ROM,Strength,Balance, Coordination,Bed Mobility, Transfers,Gait,Activity Tolerance Progress Towards Goals Slow Progress due to Pain,Slow Progress due to Medical Issues,Slow Progress due to Activity Tolerance Assessment Summary Pt is an 83 y/o male with ED visit last date after syncopal episode and reports of hitting head and left arm. ED d/c paper work reports left AC joint separation and referral to OP orthopedics and x-ray reveals AC degeneration/ arthritis. Pt has pain in left shoulder at rest, with adduction and attempted bed mobility to the left and he guards left arm and does not use it as much. Pt reports 2 falls this year d/t syncope with the first fall in November . His BP is volatile and continues to drop over greater than 6' with checking orthostatics with PT today. He is symptomatic with c/o nausea and wobbliness and he con't to ask to sit down. Given history of syncope and falls and ongoing symptomatic orthostasis, he will require 24 hour superv at d/c. His mobility is more limited by this medical presentation rather than functional strength. Goals Bed Mobility Goal Independent Transfer Goal Independent,Front Wheeled Walker,Four Wheeled Walker Gait Goal Independent,Front Wheel Walker ,Four Wheel Walker Gait Distance 100 Days to Meet Goals 5 Frequency of Treatment Frequency Of Treatment Once a Day Treatment Plan Physical Therapy Treatment Plan Bed Mobility Training,Transfer Training,Gait Training, Therapeutic Exercise,Balance Retraining,Discharge Planning Precautions Other Precautions Orthostasis Recommendations To Nursing Amount of Assist Needed 1 Person Assist Discharge Recommendations PT Discharge Recommendations Home with 04/06 Assist Available Other Discharge Recommendations for home safety vs outpatient PT for left shoulder Transportation Needs at Discharge Private Vehicle
--- NOTE | 2024-08-18 11:59 | PM.PN.1 ---
Subjective Subjective Interval history: Subjective: He was quite orthostatic with physical therapy today and did feel lightheaded and nauseated. He had a 50 point drop in systolic pressure. He notes his he was largely been laying flat for 2 days. He was now up to a chair. He denies any chest pain. Exam Vital Signs (past 8 hours): - 08/18/24 04:00 08/18/24 07:00 08/18/24 07:47 Temperature 99.4 F 97.3 F L Pulse Rate 72 67 Respiratory Rate 20 15 Blood Pressure 167/89 H 134/84 Pulse Oximetry 95 96 Oxygen Flow Rate 0 45 0 08/18/24 11:56 Temperature 97.6 F Pulse Rate 76 Respiratory Rate 14 Blood Pressure 142/87 H Pulse Oximetry 96 Oxygen Flow Rate 0 Oxygen Delivery Method Room Air Oxygen Flow Rate 0 Narrative Exam Narrative: NAD, alert and oriented. Fluent speech. Lungs are clear, normal rate and effort. Heart is regular, no murmur gallop or rub. Abdomen is soft, non distended. Extremities are free of edema. Objective Imaging Echo: Radiologist's impression: Normal left ventricle size with ejection fraction 65-70%. No obvious valvular abnormality. Comparison is made with the echocardiogram of 01/08/2023, no significant change. Labs 08/17/24 19:52 08/17/24 19:52 Labs: Laboratory Results - last 24 hr 08/17/24 08/17/24 05:31 19:52 WBC 8.2 10.9 D RBC 3.89 L 4.02 L Hgb 12.5 L 12.9 L Hct 36.3 L 37.8 L MCV 93.2 94.2 MCH 32.1 32.1 MCHC 34.4 34.1 RDW 14.6 14.8 Plt Count 166 166 Neut % (Auto) 81.3 H 89.0 H D Lymph % (Auto) 11.4 L 5.9 L D Nash % (Auto) 6.7 4.9 Eos % (Auto) 0.2 L 0.1 L Baso % (Auto) 0.4 0.1 Neut # (Auto) 6600 9700 H Lymph # (Auto) 900 L 600 L Nash # (Auto) 500 500 Eos # (Auto) 0 0 Baso # (Auto) 0 0 RBC Morphology Normal morphology Sodium 136 L 135 L Potassium 3.9 3.8 Chloride 105 104 Carbon Dioxide 27 25 BUN 14 17 Creatinine 0.79 0.71 Estimated GFR > 60 > 60 BUN/Creatinine Ratio 17.7 23.9 H Glucose 106 109 Calcium 8.5 8.4 Magnesium 1.9 Total Bilirubin 0.5 AST 32 ALT 22 Alkaline Phosphatase 43 Total Protein 6.7 Albumin 3.6 Globulin 3.1 Albumin/Globulin Ratio 1.2 Lipase 82 Ethyl Alcohol < 10 PFSH Medical History Syncope Hyperlipidemia Mumps (~1945) Vertigo (~2017) Hearing loss GERD (gastroesophageal reflux disease) Syncope Hypertension Surgical History History of repair of hiatal hernia Anesthesia History of hernia surgery (~1971) History of knee surgery (~1969) Family History Mother Brain aneurysm Social History household members: spouse, family and children Smoking Status: Former smoker alcohol intake: current Assessment & Plan Assessment & Plan narrative: 1. Syncope, present on admission and resolved. 2. Orthostatic hypotension, present on admission and active. 3. Left shoulder injury with negative radiograph, present on admission and active. Plan: -out of bed -IV fluids -remeasure orthostatics later this afternoon. -consider a trial of midodrine if he continues to have significant orthostasis. AYLIN: 08/19. Full code. Time-Based Coding :: [TOTAL MINUTES] spent with patient and on the chart (including review of chart, obtaining history, exam, reviewing outside data, placing orders, documenting exam and treatment plan, and counseling patient) on [DATE]. Quality VTE Deep Vein Thrombosis/Pulmonary Embolism Present on Admission: No
--- NOTE | 2024-08-18 13:58 | CM.DANOTE ---
Patient is an 83 yo male who was admitted OBS Status on 08/17/24 for Syncope. Pt has MCR and [employer] for insurance and his PCP is Osiris Hanna. EMR was reviewed. Per MD, hx of hyperlipidemia and hx of syncope and getting Echo today and treated for orthostatic hypotension. Per MD, pt's Echo normal but changing pt's medications and possible d/c home tomorrow if stable. Per PT, recommending home with spouse assist and HH ideally. SW met bedside with pt, spouse, and granddtr and explained role and they confirm they live in [place] with family and pt is independent with ADLs and drives but due to orthostatics has been unsteady and weak. Pt denies any hx of HH or SNF and confirms spouse is currently his POA with Dtr secondary. Discussed HH recommendation and services and disciplines and pt and spouse very appreciative and feel HH would be very helpful. SW provided HH Choice list and no preference and [facility] referral made based on Vendor Calendar. F2F completed but not sent yet. Plan: SW to follow for plan of likely d/c home with family tomorrow Tues if medically stable with new [facility] referral made. F2F, HH orders, and d/c summary to be faxed to [facility] at discharge. CYNTHIA Proctor Discharge Planning/Care Management CM Discharge Assessment Start: 08/18/24 13:45 Freq: Status: Active Protocol: Document 08/18/24 13:45 BF (Rec: 08/18/24 13:58 BF [id number]) Discharge Planning Assessment Assigned Cushion Sewer CYNTHIA Haro DPOA/Assigned Designee Name jaydon Mosquera Contact Information [phone] Advance Directives? Yes: ADV DIR Advance Directives on File Yes History Provided By Patient,Family Member, Significant Other,Medical Record Has Patient been admitted in last 30 No days? Prior Living Arrangements House Household Members spouse,family,children Type of transporation used prior to Drives own vehicle admit Independent with ADL's Yes Is patient alert and oriented? Yes Caregiver for Another No Patient/Family Preference Home with Home Health Barriers to Discharge No Discharge Plan Home with Home Health Community Services Physical Therapy,Home Health Nurse Referrals Initiated Home Health If patient plan is home with home health Yes : Has signed face to face form been completed? Medicare Choice List Provided Yes Medicare choice list reviewed on patient,family electronic tablet with SNF/HH Preference None, referral sent to [facility] based on Vendor Calendar Whiteboard Updated in Patient Room with Yes name and ext. # of Cushion Sewer Review Status In Process Please Provide Date Initial DC 08/18/24 Assessment Was Performed Next Review Type Continued Stay Review
[2024-08-18] MEDS: MIDODRINE HCL 5 MG TABLET 2.5 MG PO (18:24)
[2024-08-18] MEDS: SODIUM CHLORIDE 0.9% 1,000 ML 100 ML IV (18:24)
[2024-08-18] MEDS: ATORVASTATIN 20 MG TABLET PO (20:36)
[2024-08-19] VITALS: BP 162/84; PULSE 63; TEMP 37.1; O2SAT 98
[2024-08-19] MEDS: SODIUM CHLORIDE 0.9% 1,000 ML 100 ML IV (03:58)
[2024-08-19 04:00] VITALS: BP 148/82; PULSE 59; RESP 18; TEMP 36.6; O2SAT 94
[2024-08-19] MEDS: MIDODRINE HCL 5 MG TABLET 2.5 MG PO ×2 (06:16→13:25)
[2024-08-19 08:00] VITALS: BP 162/91; PULSE 76; RESP 20; TEMP 36.2; O2SAT 97
--- NOTE | 2024-08-19 08:37 | PC.NURSE ---
Pt alert and oriented , makes needs easily known. Up with SBA and walker to use urinal. Up in chair for b'fast.
[2024-08-19 08:56] VITALS: BP 123/83; BP 129/79; BP 162/91; PULSE 76; PULSE 89
--- NOTE | 2024-08-19 10:20 | PM.DS.1 ---
History of Present Illness History of Present Illness Chief complaint: Syncope Narrative: From H&P: 83-year-old male with medical history of hyperlipidemia and previous episode of syncope presents with concern of a stroke. Of note, the patient presented initially to our ER early today with concern of a stroke due to a fall and reported left facial trooping and numbness. However, there?s no report of any focal weakness, changes in speech or vision. The patient was admitted to our ER with full workup including ?a CT scan without contrast which shows no sign of stroke. The patient however, was found to have systolic blood pressure in the 60s per EMS but resolved with IV fluid bolus. ?It was reported that the patient has orthostatic hypotension. Laboratory and vital signs were otherwise normal and the patient was deemed to be stable for discharge. However, when the patient return home, the patient felt fatigue and went to the restroom to have a bowel movement. In the restroom, the patient had a syncopal episode but there was no report of any serious injury. ?The patient was brought back into our emergency room for further evaluation. The patient otherwise denies any chest pain, shortness of breath, fever, chills, nausea, or diarrhea. In our emergency room, the patient was hemodynamically intact. ?EKG as well as troponin were negative. ?Our ER physician requested admission to observation. Discharge Providers Provider Date of admission: 08/17/24 21:33 Discharge Date: 08/19/24 Primary care physician: Osiris Hanna DO Consults: 08/17/24 21:38 Consult to Occupational Therapy Evaluate & Treat Comment: Physician Instructions: Evaluate and treat Consult to Physical Therapy Evaluate & Treat Comment: Physician Instructions: Evaluate and Treat 08/17/24 22:11 Consult to Pastoral Services Routine Comment: per pt request Discharge provider: Jj Townsend MD Summary Hospital Course Discharge Diagnosis: 1. Syncope, present on admission and resolved. 2. Orthostatic hypotension, present on admission and active. 3. Left shoulder injury with negative radiograph, present on admission and active. Hospital Course: The patient was admitted for syncopal episode and found to be orthostatic. He was volume repleted but still had a significant orthostatic drop. The patient had no history of hypertension, or neurologic disease such as Parkinson's. He was placed on a trial of midodrine 2.5 mg Q 8 hours and had improvement of his orthostasis, and his symptoms while standing. He did however, have a significant metastatic drop still measured. Due to his feeling better symptomatically, he was felt to be stable for discharge and close follow up. This will allow him time to continue the midodrine to see how this improves his overall stability in symptoms. Status at Discharge Cognitive/behavioral status at discharge: oriented Functional status at discharge: independent ambulation Overall status at discharge: patient is back to baseline Time Spent with Patient Time spent: Greater than 30 minutes Exam Vital Signs (past 8 hours): - 08/19/24 04:00 08/19/24 08:00 08/19/24 08:56 Temperature 97.8 F 97.1 F L Pulse Rate 59 L 76 Pulse Rate [Orthostatic Lying] 76 Pulse Rate [Orthostatic Standing] 89 Respiratory Rate 18 20 Blood Pressure 148/82 H 162/91 H Blood Pressure [Orthostatic Lying] 162/91 H Blood Pressure [Orthostatic Sitting] 129/79 Blood Pressure [Orthostatic Standing] 123/83 Pulse Oximetry 94 97 Oxygen Flow Rate 0 0 Oxygen Delivery Method Room Air Oxygen Flow Rate 0 Narrative Exam Narrative: NAD, alert and oriented. Fluent speech. Lungs are clear, normal rate and effort. Heart is regular, no murmur gallop or rub. Abdomen is soft, non distended. Extremities are free of edema. Objective ECG Impression: Sinus bradycardia Imaging Multiple studies:: Radiologist's impression: Echo: Normal left ventricle size with ejection fraction 65-70%. No obvious valvular abnormality. Comparison is made with the echocardiogram of 01/08/2023, no significant change. Shoulder x-ray: Degenerative acromioclavicular arthritic changes noted Head and neck CTA: Study is significantly limited at the skull base by motion artifact. Distal intracranial vasculature is patent nevertheless. Bilateral proximal ICA widely patent. Brain CT: Atrophy and chronic ischemic change without intracranial hemorrhage or mass effect. Labs 08/17/24 19:52 08/17/24 19:52 [facility] Medical History Syncope Hyperlipidemia Mumps (~1945) Vertigo (~2017) Hearing loss GERD (gastroesophageal reflux disease) Syncope Hypertension Surgical History History of repair of hiatal hernia Anesthesia History of hernia surgery (~1971) History of knee surgery (~1969) Family History Mother Brain aneurysm Social History household members: spouse, family and children Smoking Status: Former smoker alcohol intake: current Discharge Assessment & Plan Assessment and Plan Assessment: 1. Syncope, present on admission and resolved. 2. Orthostatic hypotension, present on admission and active. 3. Left shoulder injury with negative radiograph, present on admission and active. Plan of Treatment: Discharge home on a trial of midodrine 2.5 mg Q 8 hours. He was asked to monitor and log some blood pressures between now in his follow up appointment with his primary care within the next week. Discharge Plan Discharge Plan Patient Disposition: Home Provider Discharge Comment: Stable for discharge home on a trial of midodrine with close blood pressure monitoring at home and close PCP follow up. Discharge orders & Medications Prescriptions: New midodrine 5 mg Tablet 2.5 mg PO 0600,1200,1800 Qty: 90 1RF Continued atorvastatin 20 mg tablet 20 mg PO BEDTIME Qty: 90 1RF (DME) DISABLED PARKING PERMIT See Rx Instructions .ROUTE .MEDSUPPLY Qty: 1 0RF Rx Instructions: I FIND THIS PATIENT TO BE MEDICALLY DISABLED AND QUALIFIED FOR DISABLE PARKING INDICATED, AND SIGNED ON THE ACCOMPANYING [facility] APPLICATION FOR INDIVIDUALS multivitamin Tablet,Chewable 2 tab PO DAILY Patient Comments: adult gummy omega-3 fatty acids Capsule 1 cap PO DAILY vitamin A-vitamin D3 700-400 unit Capsule 1 cap PO DAILY Follow up/Referrals: Osiris Hanna DO [Primary Care Provider] - 08/25/24 10:15 am (Appt:08/25 @ 10:[address] Hanna please arrive 15 min prior to scheduled appointment time ) Diet/Activity/Treatments Diet: Regular Activity: As tolerated. Visit Report/Discharge Packet Instructions: DI for Syncope in Adults (Fainting), DI for Orthostatic Hypotension Stand Alone Forms: Patient Portal/API, Stroke Signs & Symptoms Discharge Data Primary Care Provider: Osiris Hanna Attending Provider: Ruddy Lopez Admit Date/Time: 08/17/24 21:33 Quality VTE Deep Vein Thrombosis/Pulmonary Embolism Present on Admission: No
--- NOTE | 2024-08-19 10:30 | PT-IP ANOTE ---
Pt is to d/c early this afternoon, he reports no PT needs.
--- NOTE | 2024-08-19 10:58 | CM.DPC ---
DCP Cont. Reviewed EMR and team rounds for status updates. Pt has been medically cleared for home d/c. Faxed new Home Health orders and f/f to [facility] for OP f/u. Family are transporting him home. No further d/c needs identified at this time.
== END 2024-08-19 13:15 | disposition home or self-care (01) ==
LOC: ED 19:10 → AC 21:34
PROVIDERS: Admitting Provider Internal Medicine; Emergency Provider Emergency Medicine; Family Provider Student in an Organized Health Care Education/Training Program; PCP Family Medicine; Referring Provider Emergency Medicine; Visit Provider Internal Medicine
DX: E86.0 Dehydration (principal); I95.1 Orthostatic hypotension; S43.102A Unspecified dislocation of left acromioclavicular joint, initial encounter; S09.90XA Unspecified injury of head, initial encounter; R29.810 Facial weakness; I10 Essential (primary) hypertension; Z11.52 Encounter for screening for COVID-19; W18.30XA Fall on same level, unspecified, initial encounter
CPT/HCPCS: 36415; 70450; 70496; 70498; 73030; 80048; 80053; 80305; 80320; 81001; 82550; 83690; 83735; 84484; 85025; 85610; 85730; 87635; 93005; 93306; 96360; 96361; 97161; 97165; 99283; 99284; 99285; G0378

== ENCOUNTER → 2024-08-25 11:01 | Outpatient (CLI) | payer MEDICARE, SELFPAY ==
[2024-08-17 21:34] VITALS: BMI 24.3
[2024-08-25 13:03] LABS: Erythrocyte Sedimentation Rate 13 MM/HR (0-15)
[2024-08-25 13:12] LABS: HEMOLYSIS 22 (0-50); Iron 86 ug/dL (49-181)
[2024-08-25 13:15] LABS: C-Reactive Protein Quant < 0.5 mg/dL (<1.0)
[2024-08-25 13:24] LABS: Percent Iron Saturation 35 % (20-50); Total Iron Binding Capacity 243 ug/dL (261-462)
[2024-08-25 13:36] LABS: Prostate Specific Antigen Scrn 2.38 ng/mL (0.1-4.0)
[2024-08-25 13:40] LABS: Ferritin 104 ng/mL (18-464)
[2024-08-25 13:41] LABS: TSH w/ Reflex to FT4 2.52 uIU/mL (0.47-4.68)
[2024-08-25 15:07] LABS: Transferrin 186 mg/dL (206-381)
== END ==
PROVIDERS: Family Provider Student in an Organized Health Care Education/Training Program; PCP Family Medicine; Referring Provider Family Medicine; Visit Provider Family Medicine
DX: D64.9 Anemia, unspecified (principal); Z12.5 Encounter for screening for malignant neoplasm of prostate; I10 Essential (primary) hypertension; N32.89 Other specified disorders of bladder; R91.8 Other nonspecific abnormal finding of lung field; I95.1 Orthostatic hypotension; R55 Syncope and collapse; D72.828 Other elevated white blood cell count; Z86.39 Personal history of other endocrine, nutritional and metabolic disease
CPT/HCPCS: 36415; 82728; 83540; 83550; 84443; 85651; 86140; G0103